=== PATIENT | male | born 1940 | race Caucasian/White ===

== ENCOUNTER → 2016-05-15 | Outpatient (CLI) | payer MEDICARE, OTHER ==
[2016-05-15 12:27] LABS: PROTHROMBIN TIME 45.9 SEC (11.4-15.4)
== END ==
LOC: HH 12:11
PROVIDERS: ATTEND Internal Medicine
DX: I49.01 Ventricular fibrillation (principal); Z51.81 Encounter for therapeutic drug level monitoring; Z79.01 Long term (current) use of anticoagulants
CPT/HCPCS: 85610

== ENCOUNTER → 2016-05-26 | Outpatient (CLI) | payer MEDICARE, OTHER ==
[2016-05-26 13:54] LABS: HEMATOCRIT 36.6 % (37.9-51.0); HEMOGLOBIN 11.4 g/dL (13.5-17.0); HGB HCT DIFFERENCE -2.4; MEAN CORPUSCULAR HEMOGLOBIN 28.5 pg (27.0-33.4); MEAN CORPUSCULAR HGB CONC 31.1 g/dL (32.0-36.0); MEAN CORPUSCULAR VOLUME 92 fl (80-97); RED BLOOD COUNT 3.99 10^6/uL (4.35-5.55); RED CELL DISTRIBUTION WIDTH 19.5 % (11.5-14.0); WHITE BLOOD COUNT 8.6 10^3/uL (4.0-10.5)
[2016-05-26 14:19] LABS: ANION GAP 10 (5-19); BLOOD UREA NITROGEN 38 mg/dL (7-20); CALCIUM 8.8 mg/dL (8.4-10.2); CARBON DIOXIDE 35 mmol/L (22-30); CHLORIDE 89 mmol/L (98-107); CREATININE RESULT 1.76 mg/dL (0.52-1.25); GLUCOSE 330 mg/dL (75-110); POTASSIUM 4.2 mmol/L (3.6-5.0); SODIUM 134.1 mmol/L (137-145)
== END ==
LOC: OD 13:25
PROVIDERS: ATTEND Internal Medicine Nephrology
DX: I12.9 Hypertensive chronic kidney disease with stage 1 through stage 4 chronic kidney disease, or unspecified chronic kidney disease (principal); N18.4 Chronic kidney disease, stage 4 (severe); I50.9 Heart failure, unspecified; E11.9 Type 2 diabetes mellitus without complications
CPT/HCPCS: 36415; 80048; 85027

== ENCOUNTER → 2016-06-20 | Outpatient (CLI) | payer MEDICARE, OTHER ==
[2016-06-20 08:40] LABS: PROTHROMBIN TIME 12.7 SEC (11.4-15.4)
== END ==
LOC: OD 07:42
PROVIDERS: ATTEND Student in an Organized Health Care Education/Training Program
DX: Z79.01 Long term (current) use of anticoagulants (principal)
CPT/HCPCS: 36415; 85610; 85730

== ENCOUNTER → 2016-07-04 | Outpatient (CLI) | payer MEDICARE, OTHER ==
[2016-07-04 09:07] LABS: ABSOLUTE BASOPHILS # (AUTO) 0.1 10^3/uL (0.0-0.2); ABSOLUTE EOSINOPHILS # (AUTO) 0.4 10^3/uL (0.0-0.6); ABSOLUTE LYMPHOCYTES (AUTO) 1.5 10^3/uL (0.5-4.7); ABSOLUTE MONOCYTES (AUTO) 0.9 10^3/uL (0.1-1.4); ABSOLUTE NEUT (AUTO) 7.8 10^3/uL (1.7-8.2); BASOPHILS % (AUTO) 0.6 % (0-2); HEMATOCRIT 32.4 % (37.9-51.0); HGB HCT DIFFERENCE -2.4; LYMPHOCYTES % (AUTO) 14.3 % (13-45); MEAN CORPUSCULAR HEMOGLOBIN 26.3 pg (27.0-33.4); MEAN CORPUSCULAR VOLUME 85 fl (80-97); MONOCYTES % (AUTO) 8.6 % (3-13); RED BLOOD COUNT 3.81 10^6/uL (4.35-5.55); RED CELL DISTRIBUTION WIDTH 20.2 % (11.5-14.0); SEGMENTED NEUTROPHILS % (AUTO) 72.5 % (42-78); WHITE BLOOD COUNT 10.8 10^3/uL (4.0-10.5)
[2016-07-04 09:19] LABS: PROTHROMBIN TIME 13.5 SEC (11.4-15.4)
[2016-07-04 09:20] LABS: PARTIAL THROMBOPLASTIN TIME 30.2 SEC (23.5-35.8)
[2016-07-04 09:28] LABS: ALANINE AMINOTRANSFERASE 29 U/L (21-72); ALBUMIN 3.6 g/dL (3.5-5.0); ALKALINE PHOSPHATASE 69 U/L (38-126); ANION GAP 12 (5-19); ASPARTATE AMINO TRANSFERASE 11 U/L (17-59); BILIRUBIN,TOTAL 0.4 mg/dL (0.2-1.3); BLOOD UREA NITROGEN 32 mg/dL (7-20); CALCIUM 9.8 mg/dL (8.4-10.2); CARBON DIOXIDE 32 mmol/L (22-30); CHLORIDE 94 mmol/L (98-107); CHOLESTEROL 152.56 mg/dL (0-200); CREATININE RESULT 2.05 mg/dL (0.52-1.25); Direct HDL 21 mg/dL (>40); GLUCOSE 142 mg/dL (75-110); POTASSIUM 4.9 mmol/L (3.6-5.0); SODIUM 138.2 mmol/L (137-145); TOTAL PROTEIN 6.4 g/dL (6.3-8.2); TRIGLYCERIDES 155 mg/dL (<150)
[2016-07-04 09:39] LABS: DIRECT LDL 116 mg/dL (<100)
== END ==
LOC: OD 08:35
PROVIDERS: ATTEND Internal Medicine
DX: E11.9 Type 2 diabetes mellitus without complications (principal); I12.9 Hypertensive chronic kidney disease with stage 1 through stage 4 chronic kidney disease, or unspecified chronic kidney disease; N18.9 Chronic kidney disease, unspecified; E78.5 Hyperlipidemia, unspecified; R53.83 Other fatigue; I25.10 Atherosclerotic heart disease of native coronary artery without angina pectoris; I42.9 Cardiomyopathy, unspecified
CPT/HCPCS: 36415; 80053; 80061; 83036; 84443; 85025; 85610; 85730

== ENCOUNTER → 2016-09-08 | Outpatient (CLI) | payer MEDICARE, OTHER ==
[2016-09-08 10:31] LABS: HEMATOCRIT 27.2 % (37.9-51.0); HEMOGLOBIN 8.3 g/dL (13.5-17.0); HGB HCT DIFFERENCE -2.3; MEAN CORPUSCULAR HEMOGLOBIN 24.4 pg (27.0-33.4); MEAN CORPUSCULAR HGB CONC 30.7 g/dL (32.0-36.0); MEAN CORPUSCULAR VOLUME 79 fl (80-97); RED BLOOD COUNT 3.42 10^6/uL (4.35-5.55); RED CELL DISTRIBUTION WIDTH 21.8 % (11.5-14.0); WHITE BLOOD COUNT 8.2 10^3/uL (4.0-10.5)
[2016-09-08 10:39] LABS: APPEARANCE,URINE CLEAR; BILIRUBIN,URINE NEGATIVE (NEGATIVE); GLUCOSE, URINE NEGATIVE (NEGATIVE); KETONES,URINE NEGATIVE (NEGATIVE); LEUKOCYTE ESTERASE,URINE NEGATIVE (NEGATIVE); NITRITE,URINE NEGATIVE (NEGATIVE); PROTEIN,URINE NEGATIVE (NEGATIVE); URINE SPECIFIC GRAVITY 1.005; UROBILINOGEN,URINE NEGATIVE mg/dL (<2.0)
[2016-09-08 11:07] LABS: ALANINE AMINOTRANSFERASE 21 U/L (21-72); ALBUMIN 3.5 g/dL (3.5-5.0); ALKALINE PHOSPHATASE 55 U/L (38-126); ANION GAP 12 (5-19); ASPARTATE AMINO TRANSFERASE 13 U/L (17-59); BILIRUBIN,DIRECT 0.1 mg/dL (0.0-0.4); BILIRUBIN,TOTAL 0.4 mg/dL (0.2-1.3); BLOOD UREA NITROGEN 33 mg/dL (7-20); CALCIUM 8.6 mg/dL (8.4-10.2); CARBON DIOXIDE 31 mmol/L (22-30); CHLORIDE 88 mmol/L (98-107); CREATININE RESULT 1.97 mg/dL (0.52-1.25); GLUCOSE 97 mg/dL (75-110); POTASSIUM 4.5 mmol/L (3.6-5.0); SODIUM 130.7 mmol/L (137-145); TOTAL PROTEIN 6.2 g/dL (6.3-8.2)
== END ==
LOC: OD 09:27
PROVIDERS: ATTEND Internal Medicine Nephrology
DX: I12.9 Hypertensive chronic kidney disease with stage 1 through stage 4 chronic kidney disease, or unspecified chronic kidney disease (principal); N18.4 Chronic kidney disease, stage 4 (severe); E11.9 Type 2 diabetes mellitus without complications; I50.9 Heart failure, unspecified
CPT/HCPCS: 36415; 80053; 81001; 85027

== ENCOUNTER → 2016-09-15 | Outpatient (CLI) | payer MEDICARE, OTHER ==
[2016-09-15 10:36] LABS: HEMATOCRIT 25.5 % (37.9-51.0); HGB HCT DIFFERENCE -1.5; MEAN CORPUSCULAR HEMOGLOBIN 24.3 pg (27.0-33.4); MEAN CORPUSCULAR HGB CONC 31.4 g/dL (32.0-36.0); MEAN CORPUSCULAR VOLUME 77 fl (80-97); RED BLOOD COUNT 3.31 10^6/uL (4.35-5.55); RED CELL DISTRIBUTION WIDTH 21.2 % (11.5-14.0); WHITE BLOOD COUNT 9.2 10^3/uL (4.0-10.5)
[2016-09-15 10:55] LABS: ANION GAP 10 (5-19); BLOOD UREA NITROGEN 44 mg/dL (7-20); CALCIUM 9.1 mg/dL (8.4-10.2); CARBON DIOXIDE 32 mmol/L (22-30); CHLORIDE 88 mmol/L (98-107); CREATININE RESULT 2.22 mg/dL (0.52-1.25); GLUCOSE 167 mg/dL (75-110); POTASSIUM 5.3 mmol/L (3.6-5.0); SODIUM 129.6 mmol/L (137-145)
== END ==
LOC: OD 09:48
PROVIDERS: ATTEND Internal Medicine Nephrology
DX: D64.9 Anemia, unspecified (principal); E87.1 Hypo-osmolality and hyponatremia
CPT/HCPCS: 36415; 80048; 85027

== ENCOUNTER → 2016-10-07 | Outpatient (CLI) | payer MEDICARE, OTHER ==
[2016-10-07 16:27] LABS: ALANINE AMINOTRANSFERASE 30 U/L (21-72); ALBUMIN 3.6 g/dL (3.5-5.0); ALKALINE PHOSPHATASE 68 U/L (38-126); ANION GAP 12 (5-19); ASPARTATE AMINO TRANSFERASE 13 U/L (17-59); BILIRUBIN,DIRECT 0.4 mg/dL (0.0-0.4); BILIRUBIN,TOTAL 0.6 mg/dL (0.2-1.3); BLOOD UREA NITROGEN 34 mg/dL (7-20); CARBON DIOXIDE 34 mmol/L (22-30); CHLORIDE 87 mmol/L (98-107); GLUCOSE 205 mg/dL (75-110); POTASSIUM 4.5 mmol/L (3.6-5.0); SODIUM 133.1 mmol/L (137-145); TOTAL PROTEIN 6.6 g/dL (6.3-8.2)
[2016-10-08 12:03] LABS: HEMATOCRIT 26.7 % (37.9-51.0); HGB HCT DIFFERENCE -3.3; MEAN CORPUSCULAR HEMOGLOBIN 21.7 pg (27.0-33.4); MEAN CORPUSCULAR HGB CONC 29.2 g/dL (32.0-36.0); MEAN CORPUSCULAR VOLUME 75 fl (80-97); RED BLOOD COUNT 3.59 10^6/uL (4.35-5.55); WHITE BLOOD COUNT 8.8 10^3/uL (4.0-10.5)
[2016-10-08 12:09] LABS: HEMOGLOBIN 7.8 g/dL (13.5-17.0)
[2016-10-08 12:10] LABS: APPEARANCE,URINE CLOUDY; BILIRUBIN,URINE NEGATIVE (NEGATIVE); GLUCOSE, URINE NEGATIVE (NEGATIVE); KETONES,URINE NEGATIVE (NEGATIVE); LEUKOCYTE ESTERASE,URINE LARGE (NEGATIVE); NITRITE,URINE NEGATIVE (NEGATIVE); PROTEIN,URINE 100 mg/dL (NEGATIVE); UROBILINOGEN,URINE NEGATIVE mg/dL (<2.0)
[2016-10-09 11:40] LABS: CREATININE URINE 66.5 mg/dL (Not Estab.)
[2016-10-09 13:22] LABS: MICROALBUMIN URINE 493.3 ug/mL (Not Estab.)
== END ==
LOC: OD 15:02
PROVIDERS: ATTEND Internal Medicine Nephrology
DX: E11.22 Type 2 diabetes mellitus with diabetic chronic kidney disease (principal); N18.4 Chronic kidney disease, stage 4 (severe); I50.9 Heart failure, unspecified; D64.9 Anemia, unspecified
CPT/HCPCS: 36415; 80053; 81001; 82043; 82570; 84443; 85027

== ENCOUNTER 2016-10-13 15:12 | Inpatient (IN) | payer MEDICARE, OTHER ==
[2016-10-13] MEDS ORDERED: GLUCAGON,HUMAN RECOMB 1 MG INJ IM PRN (17:14)
[2016-10-13] MEDS ORDERED: DEXTROSE 50%-WATER 25 GM/50 ML DISP.SYRIN IV PRN ×2 (17:14)
[2016-10-13] MEDS ORDERED: DEXTROSE 40% GEL 15 GM TUBE PO PRN ×2 (17:14)
[2016-10-13] MEDS ORDERED: ONDANSETRON HCL INJ/PF 4 MG/2 ML SDV IV PRN (17:19)
[2016-10-13] MEDS ORDERED: ACETAMINOPHEN 325 MG TABLET PO PRN (17:19)
[2016-10-13] MEDS ORDERED: VANCOMYCIN HCL 0 MG in DEXTROSE 5%-WATER 250 ML IV NR (17:30)
[2016-10-13] MEDS ORDERED: FUROSEMIDE INJ/PF 20 MG/2 ML SDV IV PRN (17:49)
[2016-10-13] MEDS ORDERED: NORMAL SALINE 250 ML IV PRN ×2 (17:49)
--- NOTE | 2016-10-13 17:55 | PDOC H&P ---
History of Present Illness Admission Date/PCP: 10/13/16 15:12 HANK LOCKETT MD Patient complains of: swelling, weakness, anemia History of Present Illness: LEOPOLDO SANCHEZ is a 76 year old male presents from dr back' office where he was being seen in followup of his CKD stage 4 and found to be more anemic than usual, worsening edema c/w anasarca, cough productive of green phlegm and worsening leg wounds from venous stasis and known mild to mod arterial disease. Hg found 7.8 down from 11 just a couple months ago without any clinical apparent bleeding at home or on exam by dr back. He is on coumadin for chronic afib. Scr at his baseline around 2.0. COPD is worse with increasing cough productive of green phlegm but no fever or chills, no increase in his home O2 at 3L/min or increased use of his home neb machine. Leg wounds are worsening and appearing spontaneously as his edema worsens and now tracks up to umbilicus. given this constellation of worsening conditions, we were asked to direct admit for further eval and management. Past Medical History Cardiac Medical History: Reports: Congestive Heart Failure, Coronary Artery Disease, Hypertension Pulmonary Medical History: Reports: Chronic Obstructive Pulmonary Disease (COPD) Neurological Medical History: Reports: Other - peripheral neuropathy Endocrine Medical History: Reports: Diabetes Mellitus Type 2 Renal/ Medical History: Reports: Chronic Kidney Disease GI Medical History: Reports: Gastroesophageal Reflux Disease Musculoskeltal Medical History: Reports: Arthritis Past Surgical History Past Surgical History: Reports: Appendectomy, Cardiac Catheterization Social History Information Source: Patient Smoking Status: Current Every Day Smoker Pipes Per Day: 8 Frequency of Alcohol Use: Rare Hx Recreational Drug Use: No Drugs: None Hx Prescription Drug Abuse: No - Advance Directive Resuscitation Status: Full Code Family History Family History: Reviewed & Not Pertinent Parental Family History Reviewed: Yes Children Family History Reviewed: Yes Sibling(s) Family History Reviewed.: Yes Medication/Allergy Home Medications: Aspirin [Aspirin 81 mg Chewable Tablet] 81 mg PO DAILY 04/05/15 Carvedilol [Coreg] 2 tab PO Q12 04/05/15 Folic Acid/Multivit-Min/Lutein [Centrum Silver Chewable Tablet] 1 each PO DAILY 04/05/15 Amiodarone HCl [Cordarone 200 mg Tablet] 200 mg PO Q12 #60 tablet 12/03/15 Atorvastatin Calcium [Lipitor] 40 mg PO QAM #30 tablet 04/12/15 Carvedilol [Coreg 6.25 mg Tablet] 12.5 mg PO Q12 #120 tablet 04/12/15 Doxazosin Mesylate [Cardura 2 mg Tablet] 2 mg PO QPM #30 tablet 04/12/15 Furosemide [Lasix 40 mg Tablet] 80 mg PO QAM #60 tablet 04/12/15 Gabapentin [Neurontin 300 mg Capsule] 300 mg PO QAM #30 capsule 04/12/15 Glimepiride [Amaryl 1 mg Tablet] 2 mg PO QAM #60 tablet 04/12/15 Insulin Glargine,Hum.rec.anlog [Lantus Insulin 100 Unit/mL] 10 unit SUBCUT Q12 # 10 insuln.pen 04/12/15 Linezolid [Zyvox 600 mg Tablet] 600 mg PO Q12 #20 tablet 04/12/15 Oxybutynin Chloride [Ditropan Xl] 10 mg PO QAM #30 tab.er.24 04/12/15 Spironolactone 25 mg PO QAM #30 tablet 04/12/15 Warfarin Sodium [Coumadin 5 mg Tablet] 5 mg PO QHS #30 tablet 04/12/15 Furosemide [Lasix 40 mg Tablet] 40 mg PO DAILY #30 tablet 04/16/15 Hydralazine HCl [Apresoline 50 mg Tablet] 50 mg PO Q8 #90 tablet 04/16/15 Albuterol Sulfate [Proair HFA Inhalation Aerosol 8.5 gm MDI] 01/22/16 Cholecalciferol (Vitamin D3) [D3-2000] 01/22/16 Diphenhydramine HCl [Sleep Aid] 01/22/16 Docusate Sodium [Stool Softener] 01/22/16 Ipratropium/Albuterol Sulfate [Iprat-Albut 0.5-3(2.5) mg/3 ml] 01/22/16 Losartan Potassium 100 mg PO 01/22/16 Oxycodone HCl [Oxycontin] 10 mg PO 01/22/16 Allergies/Adverse Reactions: PEPE Inhibitors [Pepe Inhibitors] Allergy (Severe, Verified 04/05/15 03:38) angioedema finasteride [Finasteride] Allergy (Severe, Verified 04/05/15 03:38) angioedema lisinopril [Lisinopril] Allergy (Severe, Verified 04/05/15 03:37) angioedema Review of Systems Constitutional: PRESENT: weight gain. ABSENT: chills, fever(s), headache(s), weight loss Eyes: ABSENT: visual disturbances Ears: ABSENT: hearing changes Cardiovascular: PRESENT: edema. ABSENT: chest pain, dyspnea on exertion, orthropnea, palpitations Respiratory: PRESENT: dyspnea. ABSENT: cough, hemoptysis Gastrointestinal: ABSENT: abdominal pain, constipation, diarrhea, hematemesis, hematochezia, nausea, vomiting Genitourinary: ABSENT: dysuria, hematuria Musculoskeletal: ABSENT: joint swelling Integumentary: ABSENT: rash, wounds Neurological: ABSENT: abnormal gait, abnormal speech, confusion, dizziness, focal weakness, syncope Psychiatric: ABSENT: anxiety, depression, homidical ideation, suicidal ideation Endocrine: ABSENT: cold intolerance, heat intolerance, polydipsia, polyuria Hematologic/Lymphatic: ABSENT: easy bleeding, easy bruising Physical Exam Vital Signs: Temp Pulse Resp BP Pulse Ox 98.6 F 67 20 140/63 H 93 10/13/16 16:01 10/13/16 16:01 10/13/16 16:01 10/13/16 16:01 10/13/16 16:01 Intake & Output 10/12/16 10/13/16 10/14/16 06:59 06:59 06:59 Weight 125.7 kg General appearance: PRESENT: no acute distress, obese, well-developed, well- nourished Head exam: PRESENT: atraumatic, normocephalic Eye exam: PRESENT: EOMI. ABSENT: conjunctival injection, scleral icterus Mouth exam: PRESENT: moist, neck supple Teeth exam: PRESENT: poor dentation Neck exam: PRESENT: full ROM. ABSENT: lymphadenopathy, tracheal deviation Respiratory exam: PRESENT: crackles - diffuse, rales - R>L. ABSENT: accessory muscle use, chest wall tenderness, unlabored, wheezes Cardiovascular exam: PRESENT: irregular rhythm. ABSENT: systolic murmur, tachycardia Pulses: PRESENT: normal radial pulses, normal dorsalis pedis pul GI/Abdominal exam: PRESENT: normal bowel sounds, soft. ABSENT: tenderness Rectal exam: PRESENT: deferred Gentrourinary exam: ABSENT: scrotal swelling Extremities exam: PRESENT: +2 edema. ABSENT: calf tenderness Musculoskeletal exam: PRESENT: full ROM. ABSENT: tenderness Neurological exam: PRESENT: alert, awake, oriented to person, oriented to place , oriented to time, oriented to situation Psychiatric exam: PRESENT: appropriate affect, normal mood Skin exam: PRESENT: rash - both legs and feet have multiple shallow wet ulcerations and excoriations, warm Assessment & Plan - Diagnosis (1) Anemia Qualifiers: Anemia type: unspecified type Qualified Code(s): D64.9 - Anemia, unspecified Is this a current diagnosis for this admission?: YesPlan: send anemia labs and transfuse 2 U PRBCs; R&B discussed with pt and his and they are agreeable to transfusion. f/u H/H, stool studies. no GI coverage until Thu. (2) Acute bronchitis Qualifiers: Bronchitis organism: unspecified organism Qualified Code(s): J20.9 - Acute bronchitis, unspecified Is this a current diagnosis for this admission?: YesPlan: abx and nebs, sputum and blood cultures; hold on steroids for now due to fluid overload and wounds on his legs (3) Acute exacerbation of CHF (congestive heart failure) Qualifiers: Congestive heart failure type: systolic Qualified Code(s): I50.23 - Acute on chronic systolic (congestive) heart failure Is this a current diagnosis for this admission?: YesPlan: last echo 2014 EF 30-35%; increase diuretics and monitor for response, monitor renal function (4) CAD (coronary artery disease) Qualifiers: Coronary Disease-Associated Artery/Lesion type: unspecified vessel or lesion type Associated angina: without angina Is this a current diagnosis for this admission?: YesPlan: stable continue home regimen once confirmed (5) COPD (chronic obstructive pulmonary disease) Qualifiers: COPD type: unspecified COPD Qualified Code(s): J44.9 - Chronic obstructive pulmonary disease, unspecified Is this a current diagnosis for this admission?: YesPlan: see above (6) Cellulitis Qualifiers: Site of cellulitis of extremity: lower extremity Laterality: unspecified laterality Is this a current diagnosis for this admission?: YesPlan: topical treatment and IV abx; no indication for surgical debridement at this time. (7) Chronic renal disease, stage IV Is this a current diagnosis for this admission?: YesPlan: at baseline but will likely worsen with attempts at diuresis; consult dr back for his assistance (8) Diabetes mellitus Qualifiers: Diabetes mellitus type: type 2 Diabetes mellitus complication status: with circulatory complication Diabetes mellitus complication detail: with other circulatory complications Diabetes mellitus terminologist insulin use: unspecified terminologist insulin use status Qualified Code(s): E11.59 - Type 2 diabetes mellitus with other circulatory complications Is this a current diagnosis for this admission?: YesPlan: cover with SSI until home regimen confirmed (9) Diabetic foot ulcer Qualifiers: Diabetes mellitus type: type 2 Laterality: unspecified laterality Qualified Code(s): E11.621 - Type 2 diabetes mellitus with foot ulcer; L97.509 - Non-pressure chronic ulcer of other part of unspecified foot with unspecified severity Is this a current diagnosis for this admission?: YesPlan: as above (10) Tobacco abuse Is this a current diagnosis for this admission?: YesPlan: nicotine replacement - Time Time Spent: Greater than 70 Minutes Medications reviewed and adjusted accordingly: Yes - Inpatient Certification Based on my medical assessment, after consideration of the patient's comorbidities, presenting symptoms, or acuity I expect that the services needed warrant INPATIENT care.: Yes I certify that my determination is in accordance with my understanding of Medicare's requirements for reasonable and necessary INPATIENT services [42 CFR 412.3e].: Yes Medical Necessity: Significant Comorbidiites Make Outpatient Treatment Too Risky , Need Close Monitoring Due to Risk of Patient Decompensation, Need For Continuous Telemetry Monitoring, Need for IV Antibiotics, Risk of Complication if Not Cared For in Hospital - Plan Summary Plan Summary: prognosis guarded, there are a lot of moving parts here, many of them working against each other, i.e. infection, heart failure, anasarca, renal failure, etc.
[2016-10-13] MEDS ORDERED: CEFTRIAXONE 1 GM/D5W RTU 1 GM/50 ML RTUPB IV ONE (18:00)
[2016-10-13] MEDS ORDERED: NICOTINE 21 MG/24 HR PATCH.TD24 TD ONE (18:00)
[2016-10-13] MEDS ORDERED: FUROSEMIDE INJ/PF 40 MG/4 ML SDV IV ONE (18:00)
--- NOTE | 2016-10-13 18:06 | RADIOLOGY REPORT (SQ) ---
EXAM DESCRIPTION: CHEST SINGLE VIEW COMPLETED DATE/TIME: 10/13/2016 5:56 pm REASON FOR STUDY: cough COMPARISON: March 2016 EXAM PARAMETERS: NUMBER OF VIEWS: One view. TECHNIQUE: Single frontal radiographic view of the chest acquired. RADIATION DOSE: NA LIMITATIONS: None. FINDINGS: LUNGS AND PLEURA: No opacities, masses or pneumothorax. No pleural effusion. Chronic appe aring changes are stable. MEDIASTINUM AND HILAR STRUCTURES: No masses. Contour normal. HEART AND VASCULAR STRUCTURES: The configuration of the heart and mediastinal structures is unchanged . BONES: No acute findings. HARDWARE: None in the chest. OTHER: No other significant finding. IMPRESSION: No significant interval change. No acute findings. Other findings as noted above TECHNICAL DOCUMENTATION: JOB ID: [id number]
[2016-10-13 18:08] LABS: HEMATOCRIT 27.1 % (37.9-51.0); HGB HCT DIFFERENCE -3.4; MEAN CORPUSCULAR HEMOGLOBIN 20.9 pg (27.0-33.4); MEAN CORPUSCULAR HGB CONC 29.1 g/dL (32.0-36.0); MEAN CORPUSCULAR VOLUME 72 fl (80-97); RED BLOOD COUNT 3.78 10^6/uL (4.35-5.55); RED CELL DISTRIBUTION WIDTH 22.2 % (11.5-14.0); WHITE BLOOD COUNT 8.5 10^3/uL (4.0-10.5)
[2016-10-13 18:12] LABS: HEMOGLOBIN 7.9 g/dL (13.5-17.0)
[2016-10-13 18:48] LABS: FERRITIN 9.17 ng/mL (17.9-464.0)
[2016-10-13 19:18] LABS: FOLATE > 20.00 ng/mL (>2.76)
[2016-10-13] MEDS: VANCOMYCIN HCL 2,000 MG in DEXTROSE 5%-WATER 500 ML IV SCH (20:01)
[2016-10-13 21:27] LABS: APPEARANCE,URINE CLEAR; BILIRUBIN,URINE NEGATIVE (NEGATIVE); GLUCOSE, URINE NEGATIVE (NEGATIVE); KETONES,URINE NEGATIVE (NEGATIVE); LEUKOCYTE ESTERASE,URINE TRACE (NEGATIVE); NITRITE,URINE NEGATIVE (NEGATIVE); PROTEIN,URINE 30 mg/dL (NEGATIVE); URINE SPECIFIC GRAVITY 1.006; UROBILINOGEN,URINE NEGATIVE mg/dL (<2.0)
[2016-10-13] MEDS: INSULIN LISPRO 100 UNIT/ML 3 ML VIAL SUBCUT PRN (22:06)
[2016-10-13] MEDS: FUROSEMIDE INJ/PF 40 MG/4 ML SDV IV SCH (22:08)
[2016-10-13] MEDS: WARFARIN SODIUM 5 MG TABLET PO SCH (22:08)
[2016-10-13] MEDS: FAMOTIDINE 20 MG TABLET PO SCH (22:08)
[2016-10-13] MEDS: AMIODARONE HCL 200 MG TABLET PO SCH (22:09)
[2016-10-14] MEDS: OXYCODONE-ACETAMINOPHEN 5-325 MG TABLET PO PRN ×3 (05:24→22:13)
[2016-10-14 09:24] LABS: ABSOLUTE BASOPHILS # (AUTO) 0.1 10^3/uL (0.0-0.2); ABSOLUTE EOSINOPHILS # (AUTO) 0.2 10^3/uL (0.0-0.6); ABSOLUTE LYMPHOCYTES (AUTO) 0.8 10^3/uL (0.5-4.7); ABSOLUTE MONOCYTES (AUTO) 0.9 10^3/uL (0.1-1.4); ABSOLUTE NEUT (AUTO) 9.9 10^3/uL (1.7-8.2); BASOPHILS % (AUTO) 0.5 % (0-2); EOSINOPHILS % (AUTO) 1.8 % (0-6); HEMATOCRIT 32.8 % (37.9-51.0); HEMOGLOBIN 9.5 g/dL (13.5-17.0); LYMPHOCYTES % (AUTO) 6.7 % (13-45); MEAN CORPUSCULAR HEMOGLOBIN 21.5 pg (27.0-33.4); MEAN CORPUSCULAR HGB CONC 28.8 g/dL (32.0-36.0); MEAN CORPUSCULAR VOLUME 75 fl (80-97); MONOCYTES % (AUTO) 7.4 % (3-13); RED CELL DISTRIBUTION WIDTH 22.3 % (11.5-14.0); SEGMENTED NEUTROPHILS % (AUTO) 83.6 % (42-78); WHITE BLOOD COUNT 11.8 10^3/uL (4.0-10.5)
[2016-10-14 09:41] LABS: ANION GAP 11 (5-19); BLOOD UREA NITROGEN 35 mg/dL (7-20); CALCIUM 9.2 mg/dL (8.4-10.2); CARBON DIOXIDE 36 mmol/L (22-30); CHLORIDE 90 mmol/L (98-107); CREATININE RESULT 1.81 mg/dL (0.52-1.25); GLUCOSE 147 mg/dL (75-110); POTASSIUM 4.6 mmol/L (3.6-5.0); PROTHROMBIN TIME 20.1 SEC (11.4-15.4); SODIUM 137.2 mmol/L (137-145)
[2016-10-14 09:43] LABS: HGB HCT DIFFERENCE -4.3
[2016-10-14] MEDS: AMIODARONE HCL 200 MG TABLET PO SCH ×2 (10:00→21:24)
[2016-10-14] MEDS: DOCUSATE SODIUM 100 MG CAPSULE PO SCH (11:12)
[2016-10-14] MEDS: NICOTINE 21 MG/24 HR PATCH.TD24 TD SCH (11:12)
[2016-10-14] MEDS: FAMOTIDINE 20 MG TABLET PO SCH ×2 (11:12→21:23)
[2016-10-14] MEDS: FUROSEMIDE INJ/PF 40 MG/4 ML SDV IV SCH (11:13)
[2016-10-14] MEDS: CEFTRIAXONE 1 GM/D5W RTU 1 GM/50 ML RTUPB IV SCH (11:13)
--- NOTE | 2016-10-14 16:25 | PDOC CONSULTATION ---
Consultation Consult Date: 10/14/16 Consult reason:: CKD stage IV with fluid overload and acute on chronic anemia History of Present Illness Admission Date/PCP: 10/13/16 17:15 HANK LOCKETT MD History of Present Illness: LEOPOLDO SANCHEZ is a 76 year old male with a history of complicated diabetes mellitus,Hypertension, CKD stage 4, Chronic congestive heart failure, History of severe noncompliance with diet and medications, chronic non healing diabetic ulcers, was found to be more anemic than usual, worsening edema c/w anasarca, cough productive of green phlegm and worsening leg wounds from venous stasis and known mild to mod arterial disease when seen in my office the other day. He was advised admission and discussed with Dr Sutherland Hospitalist who proceeded to admit him. He has been having recurrent falls at home over the last few weeks.On one of his recent falls, his could not lift him up and had to call EMS.He says his legs feels very weak and is just gives out under him. He gives no history of any orthostasis, focal deficits or seizures. His hemoglobin was 7.8 down from 11 just a couple months ago without any clinical apparent bleeding at home or on exam . He is on coumadin for chronic afib. Scr at his baseline around 2.0. COPD is worse with increasing cough productive of green phlegm but no fever or chills, no increase in his home O2 at 3L/min or increased use of his home neb machine. Leg wounds are worsening and appearing spontaneously as his edema worsens and now tracks up to umbilicus. He did have redness over the legs suggestive of early cellulitis. No history of any fever chills. His initial clinical presentation was that of acute on chronic congestive heart failure, acute on chronic bronchitis, acute on chronic anemia, early cellulitis on bilateral venous stasis with nonhealing diabetic ulcers and progressive generalized debilitation.This is required for institutionalized treatment and he has been admitted. On today's evaluation patient has already been given 2 pints of blood transfusion, started on IV antibiotics and diuretics and patient is feeling lots better. Past Medical History Cardiac Medical History: Reports: Coronary Artery Disease, Hypertension-primary Pulmonary Medical History: Reports: Chronic Obstructive Pulmonary Disease (COPD) Neurological Medical History: Reports: Other - peripheral neuropathy Endocrine Medical History: Reports: Diabetes Mellitus Type 2 Renal/ Medical History: Reports: Chronic Kidney Disease Stage III GI Medical History: Reports: Gastroesophageal Reflux Disease Musculoskeltal Medical History: Reports: Arthritis Hematology Medical History: Reports Anemia - Noncompliance with diet and medication Past Surgical History Past Surgical History: Reports: Appendectomy, Cardiac Catheterization Social History Smoking Status: Current Every Day Smoker Pipes Per Day: 8 Frequency of Alcohol Use: Rare Hx Recreational Drug Use: No Drugs: None Hx Prescription Drug Abuse: No - Advance Directive Resuscitation Status: Full Code Family History Parental Family History Reviewed: Yes - Negative for CKD Children Family History Reviewed: No Sibling(s) Family History Reviewed.: No Medication/Allergy Home Medications: Carvedilol [Coreg] 2 tab PO Q12 04/05/15 Furosemide [Lasix 40 mg Tablet] 80 mg PO QAM #60 tablet 04/12/15 Insulin Glargine,Hum.rec.anlog [Lantus Insulin 100 Unit/mL] 10 unit SUBCUT Q12 # 10 insuln.pen 04/12/15 Linezolid [Zyvox 600 mg Tablet] 600 mg PO Q12 #20 tablet 04/12/15 Amiodarone HCl [Cordarone 200 mg Tablet] 100 mg PO Q12 10/13/16 Aspirin [Aspirin 81 mg Chewable Tablet] 81 mg PO QPM 10/13/16 Budesonide/Formoterol Fumarate [Symbicort Hfa 160-4.5 Mcg Inhaler 6 gm] 2 puff IH Q12 10/13/16 Carvedilol [Coreg 12.5 mg Tablet] 12.5 mg PO Q12 10/13/16 Cholecalciferol (Vitamin D3) [Vitamin D3 2000 unit Tablet] 2,000 unit PO DAILY 10/13/16 Diphenhydramine HCl [Benadryl 50 mg Capsule] 50 mg PO QHS 10/13/16 Docusate Sodium [Colace 100 mg Capsule] 100 mg PO Q4 10/13/16 Furosemide [Lasix] 40 mg PO QPM 10/13/16 Furosemide [Lasix] 80 mg PO QAM 10/13/16 Gabapentin [Neurontin 400 mg Capsule] 800 mg PO Q12 10/13/16 Glimepiride [Amaryl 1 mg Tablet] 2 mg PO QAM 10/13/16 Hydromorphone HCl [Dilaudid 2 mg Tablet] 2 mg PO Q4 10/13/16 Ipratropium/Albuterol Sulfate [Duoneb 3 ml Ampul] 3 ml NEB RTQ4HP PRN 10/13/16 Multivitamin W/Iron, Minerals [Compete] 1 tab PO DAILY 10/13/16 Oxybutynin Chloride [Ditropan Xl] 10 mg PO DAILY 10/13/16 Spironolactone [Aldactone 25 mg Tablet] 25 mg PO DAILY 10/13/16 Warfarin Sodium [Coumadin 5 mg Tablet] 5.5 mg PO QHS 10/13/16 Hydromorphone HCl 2 mg PO QID PRN 10/14/16 Allergies/Adverse Reactions: PEPE Inhibitors [Pepe Inhibitors] Allergy (Severe, Verified 04/05/15 03:38) angioedema finasteride [Finasteride] Allergy (Severe, Verified 04/05/15 03:38) angioedema lisinopril [Lisinopril] Allergy (Severe, Verified 04/05/15 03:37) angioedema Review of Systems Review of Systems: Constitutional: [PRESENT: as per HPI. ABSENT: chills, fever(s), headache(s), weight gain, weight loss] Eyes: [ABSENT: visual disturbances] Ears: [ABSENT: hearing changes] Cardiovascular: [ABSENT: chest pain, , palpitations] Respiratory: [ABSENT: cough, hemoptysis] Gastrointestinal: [ABSENT: abdominal pain, constipation, diarrhea, hematemesis, hematochezia, nausea, vomiting] Genitourinary: [ABSENT: dysuria, hematuria] Musculoskeletal: [ABSENT: joint swelling] Integumentary: [ABSENT: rash, wounds] Neurological: [ABSENT: abnormal gait, abnormal speech, confusion, dizziness, focal weakness, syncope] Psychiatric: [ABSENT: anxiety, depression, homicidal ideation, suicidal ideation ] Endocrine: [ABSENT: cold intolerance, heat intolerance, polydipsia, polyuria] Hematologic/Lymphatic: [ABSENT: easy bleeding, easy bruising, lymphadenopathy] Physical Exam Vital Signs: Temp Pulse Resp BP Pulse Ox 98.4 F 83 18 150/42 H 96 10/14/16 12:01 10/14/16 13:51 10/14/16 13:51 10/14/16 12:01 10/14/16 12:01 Intake & Output 10/13/16 10/14/16 10/15/16 06:59 06:59 06:59 Intake Total 1609 118 Output Total 1925 Balance -316 118 Weight 126.3 kg General appearance: PRESENT: mild distress Eye exam: PRESENT: conjunctival injection, EOMI, PERRLA. ABSENT: conjunctiva pink, nystagmus, scleral icterus Ear exam: PRESENT: normal external ear exam Mouth exam: PRESENT: moist, neck supple Neck exam: ABSENT: lymphadenopathy, meningismus, tenderness, thyromegaly, tracheal deviation Respiratory exam: PRESENT: clear to auscultation zaki, crackles, rhonchi Cardiovascular exam: PRESENT: +S1, +S2, systolic murmur GI/Abdominal exam: PRESENT: normal bowel sounds, soft. ABSENT: diminished bowel sounds, distended, organomegaly, tenderness Extremities exam: PRESENT: +2 edema. ABSENT: calf tenderness Neurological exam: PRESENT: alert, awake, oriented to person, oriented to place , oriented to time Skin exam: PRESENT: erythema, mottled Results Laboratory Results: 10/14/16 08:48 10/14/16 08:48 10/13/16 10/13/16 10/13/16 17:47 17:47 17:47 WBC 8.5 RBC 3.78 L Hgb 7.9 L Hct 27.1 L MCV 72 L MCH 20.9 L MCHC 29.1 L RDW 22.2 H Plt Count 388 Seg Neutrophils % Lymphocytes % Monocytes % Eosinophils % Basophils % Absolute Neutrophils Absolute Lymphocytes Absolute Monocytes Absolute Eosinophils Absolute Basophils Retic Count (auto) 2.89 H Absolute Retic 0.110 Sodium Potassium Chloride Carbon Dioxide Anion Gap BUN Creatinine Est GFR ( Amer) Est GFR (Non-Af Amer) Glucose Calcium Magnesium Iron < 10.1 L TIBC 469 H % Saturation UNABLE TO CALCULATE Ferritin 9.17 L Vitamin B12 594.0 Folate > 20.00 Urine Color Urine Appearance Urine pH Ur Specific [place] Urine Protein Urine Glucose (UA) Urine Ketones Urine Blood Urine Nitrite Ur Leukocyte Esterase Urine WBC (Auto) Urine RBC (Auto) Blood Type Antibody Screen 10/13/16 10/13/16 10/14/16 18:40 20:45 08:48 WBC 11.8 H RBC 4.40 Hgb 9.5 L Hct 32.8 L MCV 75 L MCH 21.5 L MCHC 28.8 L RDW 22.3 H Plt Count 395 Seg Neutrophils % 83.6 H Lymphocytes % 6.7 L Monocytes % 7.4 Eosinophils % 1.8 Basophils % 0.5 Absolute Neutrophils 9.9 H Absolute Lymphocytes 0.8 Absolute Monocytes 0.9 Absolute Eosinophils 0.2 Absolute Basophils 0.1 Retic Count (auto) Absolute Retic Sodium Potassium Chloride Carbon Dioxide Anion Gap BUN Creatinine Est GFR ( Amer) Est GFR (Non-Af Amer) Glucose Calcium Magnesium Iron TIBC % Saturation Ferritin Vitamin B12 Folate Urine Color STRAW Urine Appearance CLEAR Urine pH 6.0 Ur Specific [place] 1.006 Urine Protein 30 H Urine Glucose (UA) NEGATIVE Urine Ketones NEGATIVE Urine Blood NEGATIVE Urine Nitrite NEGATIVE Ur Leukocyte Esterase TRACE H Urine WBC (Auto) 8 Urine RBC (Auto) 1 Blood Type O POSITIVE Antibody Screen NEGATIVE 10/14/16 08:48 WBC RBC Hgb Hct MCV MCH MCHC RDW Plt Count Seg Neutrophils % Lymphocytes % Monocytes % Eosinophils % Basophils % Absolute Neutrophils Absolute Lymphocytes Absolute Monocytes Absolute Eosinophils Absolute Basophils Retic Count (auto) Absolute Retic Sodium 137.2 Potassium 4.6 Chloride 90 L Carbon Dioxide 36 H Anion Gap 11 BUN 35 H Creatinine 1.81 H Est GFR ( Amer) 44 L Est GFR (Non-Af Amer) 37 L Glucose 147 H Calcium 9.2 Magnesium 2.0 Iron TIBC % Saturation Ferritin Vitamin B12 Folate Urine Color Urine Appearance Urine pH Ur Specific [place] Urine Protein Urine Glucose (UA) Urine Ketones Urine Blood Urine Nitrite Ur Leukocyte Esterase Urine WBC (Auto) Urine RBC (Auto) Blood Type Antibody Screen 10/13/16 17:47 NT-Pro-B Natriuret Pep 8600 H Impressions: Chest X-Ray 10/13/16 17:20 IMPRESSION: No significant interval change. No acute findings. Other findings as noted above Assessment & Plan - Diagnosis (1) Acute bronchitis Qualifiers: Bronchitis organism: unspecified organism Qualified Code(s): J20.9 - Acute bronchitis, unspecified Is this a current diagnosis for this admission?: YesPlan: As per hospitalist (2) Anemia Qualifiers: Anemia type: unspecified type Qualified Code(s): D64.9 - Anemia, unspecified Is this a current diagnosis for this admission?: YesPlan: Acute on chronic. Has iron deficiency indicis. Question GI eval as an outpatient.Later consider IV iron as an outpatient. Patient currently is posttransfusion feeling better with improved hemoglobin values. (3) Acute exacerbation of CHF (congestive heart failure) Qualifiers: Congestive heart failure type: systolic Qualified Code(s): I50.23 - Acute on chronic systolic (congestive) heart failure Is this a current diagnosis for this admission?: YesPlan: Is responding well to IV diuresis. His last echo was showing an LV ejection fraction of 30-35%. (4) Chronic renal disease, stage IV Is this a current diagnosis for this admission?: YesPlan: Stable but for fluid overload. See how he responds to IV diuretics. (5) Diabetes mellitus Qualifiers: Diabetes mellitus type: type 2 Diabetes mellitus complication status: with circulatory complication Diabetes mellitus complication detail: with other circulatory complications Diabetes mellitus usp insulin use: unspecified usp insulin use status Qualified Code(s): E11.59 - Type 2 diabetes mellitus with other circulatory complications Is this a current diagnosis for this admission?: Yes (6) Diabetic foot ulcer Qualifiers: Diabetes mellitus type: type 2 Laterality: unspecified laterality Qualified Code(s): E11.621 - Type 2 diabetes mellitus with foot ulcer; L97.509 - Non-pressure chronic ulcer of other part of unspecified foot with unspecified severity Is this a current diagnosis for this admission?: YesPlan: Chronic and nonhealing diabetic foot ulcers. He has obviously got peripheral vascular disease. He needs surgical follow-up for prognostication and management.
--- NOTE | 2016-10-14 17:11 | PDOC PROGRESS REPORT ---
Subjective Progress Note for:: 10/14/16 Subjective:: This is a follow-up visit for acute on chronic systolic heart failure. The patient denies any chest pain but does not think that her breathing is any better. He has had episodes of confusion and is constantly getting in and out of bed. No acute events overnight Physical Exam Vital Signs: Temp Pulse Resp BP Pulse Ox 98.4 F 83 18 150/42 H 96 10/14/16 12:01 10/14/16 13:51 10/14/16 13:51 10/14/16 12:01 10/14/16 12:01 Intake & Output 10/13/16 10/14/16 10/15/16 06:59 06:59 06:59 Intake Total 1609 118 Output Total 1925 Balance -316 118 Weight 126.3 kg Physical exam: General: This is a tall well-developed and nourished appearing white male resting on his potty chair currently in no acute distress Heart: Regular rate and rhythm no obvious murmurs rubs or gallops Lungs: diminished At the bases bilaterally with equal rise and fall of the chest Abdomen: Distended the patient has anasarca Extremities: No clubbing or cyanosis. Anasarca is present. Neuro: Awake and alert. He is not oriented. Conversation makes sense, as able to answer basic questions. Results Laboratory Results: 10/14/16 08:48 10/14/16 08:48 10/13/16 10/13/16 10/13/16 17:47 17:47 17:47 WBC 8.5 RBC 3.78 L Hgb 7.9 L Hct 27.1 L MCV 72 L MCH 20.9 L MCHC 29.1 L RDW 22.2 H Plt Count 388 Seg Neutrophils % Lymphocytes % Monocytes % Eosinophils % Basophils % Absolute Neutrophils Absolute Lymphocytes Absolute Monocytes Absolute Eosinophils Absolute Basophils Retic Count (auto) 2.89 H Absolute Retic 0.110 Sodium Potassium Chloride Carbon Dioxide Anion Gap BUN Creatinine Est GFR ( Amer) Est GFR (Non-Af Amer) Glucose Calcium Magnesium Iron < 10.1 L TIBC 469 H % Saturation UNABLE TO CALCULATE Ferritin 9.17 L Vitamin B12 594.0 Folate > 20.00 Urine Color Urine Appearance Urine pH Ur Specific [place] Urine Protein Urine Glucose (UA) Urine Ketones Urine Blood Urine Nitrite Ur Leukocyte Esterase Urine WBC (Auto) Urine RBC (Auto) Blood Type Antibody Screen 10/13/16 10/13/16 10/14/16 18:40 20:45 08:48 WBC 11.8 H RBC 4.40 Hgb 9.5 L Hct 32.8 L MCV 75 L MCH 21.5 L MCHC 28.8 L RDW 22.3 H Plt Count 395 Seg Neutrophils % 83.6 H Lymphocytes % 6.7 L Monocytes % 7.4 Eosinophils % 1.8 Basophils % 0.5 Absolute Neutrophils 9.9 H Absolute Lymphocytes 0.8 Absolute Monocytes 0.9 Absolute Eosinophils 0.2 Absolute Basophils 0.1 Retic Count (auto) Absolute Retic Sodium Potassium Chloride Carbon Dioxide Anion Gap BUN Creatinine Est GFR ( Amer) Est GFR (Non-Af Amer) Glucose Calcium Magnesium Iron TIBC % Saturation Ferritin Vitamin B12 Folate Urine Color STRAW Urine Appearance CLEAR Urine pH 6.0 Ur Specific [place] 1.006 Urine Protein 30 H Urine Glucose (UA) NEGATIVE Urine Ketones NEGATIVE Urine Blood NEGATIVE Urine Nitrite NEGATIVE Ur Leukocyte Esterase TRACE H Urine WBC (Auto) 8 Urine RBC (Auto) 1 Blood Type O POSITIVE Antibody Screen NEGATIVE 10/14/16 08:48 WBC RBC Hgb Hct MCV MCH MCHC RDW Plt Count Seg Neutrophils % Lymphocytes % Monocytes % Eosinophils % Basophils % Absolute Neutrophils Absolute Lymphocytes Absolute Monocytes Absolute Eosinophils Absolute Basophils Retic Count (auto) Absolute Retic Sodium 137.2 Potassium 4.6 Chloride 90 L Carbon Dioxide 36 H Anion Gap 11 BUN 35 H Creatinine 1.81 H Est GFR ( Amer) 44 L Est GFR (Non-Af Amer) 37 L Glucose 147 H Calcium 9.2 Magnesium 2.0 Iron TIBC % Saturation Ferritin Vitamin B12 Folate Urine Color Urine Appearance Urine pH Ur Specific [place] Urine Protein Urine Glucose (UA) Urine Ketones Urine Blood Urine Nitrite Ur Leukocyte Esterase Urine WBC (Auto) Urine RBC (Auto) Blood Type Antibody Screen 10/13/16 17:47 NT-Pro-B Natriuret Pep 8600 H Impressions: Chest X-Ray 10/13/16 17:20 IMPRESSION: No significant interval change. No acute findings. Other findings as noted above Assessment & Plan - Diagnosis (1) Acute systolic (congestive) heart failure Plan: Continue diuresis. Patient does not have a alvarenga and is incontinent. Therefore , I do not have accurate i/o's. Will continue to follow clinically, since he has been urinating quite a bit. However, if he does not have much more improvement, then I think placement of a alvarenga and lasix gtt will be necessary. (3) Cellulitis Qualifiers: Site of cellulitis of extremity: lower extremity Laterality: unspecified laterality Is this a current diagnosis for this admission?: YesPlan: Continue current antibiotics. (4) Chronic renal disease, stage IV Is this a current diagnosis for this admission?: Yes (5) Diabetes mellitus Qualifiers: Diabetes mellitus type: type 2 Diabetes mellitus complication status: with circulatory complication Diabetes mellitus complication detail: with other circulatory complications Diabetes mellitus care home insulin use: unspecified intermediate frame tender insulin use status Qualified Code(s): E11.59 - Type 2 diabetes mellitus with other circulatory complications Is this a current diagnosis for this admission?: YesPlan: Continue current meds - Time Time Spent with patient: 25-34 minutes - Inpatient Certification Medical Necessity: Significant Comorbidiites Make Outpatient Treatment Too Risky
[2016-10-14] MEDS: LORAZEPAM INJ 2 MG/1 ML VIAL IV PRN (17:36)
[2016-10-14] MEDS ORDERED: LORAZEPAM INJ 2 MG/1 ML VIAL ONE (17:36)
[2016-10-14] MEDS: VANCOMYCIN HCL 2,000 MG in DEXTROSE 5%-WATER 500 ML IV SCH (19:51)
[2016-10-14] MEDS ORDERED: HALOPERIDOL LACTATE INJ 5 MG/1 ML VIAL ONE (20:37)
[2016-10-14] MEDS: IPRATROPIUM/ALBUTEROL 0.5-2.5 MG/3 ML AMPUL NEB PRN (20:38)
[2016-10-14] MEDS: WARFARIN SODIUM 5 MG TABLET PO SCH (21:24)
[2016-10-14] MEDS: NORMAL SALINE 250 ML with FUROSEMIDE 250 MG IV PRN ×2 (21:56)
[2016-10-14] MEDS: INSULIN LISPRO 100 UNIT/ML 3 ML VIAL SUBCUT PRN (23:14)
[2016-10-15 01:00] LABS: ARTERIAL BLOOD BASE EXCESS 5.1 mmol/L; ARTERIAL BLOOD O2 SATURATION 94.9 % (94-98)
[2016-10-15 04:57] LABS: HEMATOCRIT 32.5 % (37.9-51.0); HEMOGLOBIN 9.3 g/dL (13.5-17.0); MEAN CORPUSCULAR HEMOGLOBIN 21.2 pg (27.0-33.4); MEAN CORPUSCULAR HGB CONC 28.7 g/dL (32.0-36.0); MEAN CORPUSCULAR VOLUME 74 fl (80-97); RED BLOOD COUNT 4.39 10^6/uL (4.35-5.55); RED CELL DISTRIBUTION WIDTH 22.5 % (11.5-14.0); WHITE BLOOD COUNT 14.8 10^3/uL (4.0-10.5)
[2016-10-15 05:08] LABS: PROTHROMBIN TIME 21.5 SEC (11.4-15.4)
[2016-10-15 05:09] LABS: ANION GAP 11 (5-19); BLOOD UREA NITROGEN 33 mg/dL (7-20); CALCIUM 8.7 mg/dL (8.4-10.2); CARBON DIOXIDE 35 mmol/L (22-30); CHLORIDE 88 mmol/L (98-107); CREATININE RESULT 1.94 mg/dL (0.52-1.25); GLUCOSE 241 mg/dL (75-110); SODIUM 134.4 mmol/L (137-145)
[2016-10-15 06:16] LABS: HGB HCT DIFFERENCE -4.6
[2016-10-15 06:18] LABS: BAND NEUTROPHILS % (MANUAL) 1 % (3-5); BASOPHILS % (MANUAL) 0 % (0-2); EOSINOPHILS % (MANUAL) 0 % (0-6); LYMPHOCYTES % (MANUAL) 4 % (13-45); TOTAL CELLS COUNTED 100
[2016-10-15 06:20] LABS: ANISOCYTOSIS 3+; BURR CELLS SLIGHT; HYPOCHROMASIA 1+; MICROCYTOSIS 1+; OVALOCYTES 1+; POIKILOCYTOSIS 1+; POLYCHROMASIA SLIGHT; TOXIC GRANULATION SLIGHT
[2016-10-15] MEDS: INSULIN LISPRO 100 UNIT/ML 3 ML VIAL SUBCUT PRN ×3 (09:26→22:08)
[2016-10-15] MEDS: FAMOTIDINE 20 MG TABLET PO SCH ×2 (10:18→21:41)
[2016-10-15] MEDS: DOCUSATE SODIUM 100 MG CAPSULE PO SCH (10:18)
[2016-10-15] MEDS: NICOTINE 21 MG/24 HR PATCH.TD24 TD SCH (10:19)
[2016-10-15] MEDS: CEFTRIAXONE 1 GM/D5W RTU 1 GM/50 ML RTUPB IV SCH (10:19)
[2016-10-15] MEDS: AMIODARONE HCL 200 MG TABLET PO SCH ×2 (10:19→21:42)
--- NOTE | 2016-10-15 12:09 | PDOC PROGRESS REPORT ---
Subjective Progress Note for:: 10/15/16 Subjective:: This is a follow-up visit for acute on chronic systolic heart failure. Overnight, the patient had difficulty breathing. Apparently the patient was quite agitated received a dose of Haldol. After Receiving the medication he began to have respiratory distress. ABG was done and showed a respiratory acidosis. Patient was placed on bilevel Pap. At the bedside the patient was still on bilevel Pap and resting comfortably. When awakened he was quite agitated. Earlier this morning he refused vital signs. He was examined in the presence of the nurse. Prior to my leaving the floor I was informed that he was taken off of BiPAP and saturating well. He requested to eat. Physical Exam Vital Signs: Temp Pulse Resp BP Pulse Ox 98.1 F 73 20 154/75 H 91 L 10/15/16 04:41 10/15/16 07:00 10/15/16 04:41 10/15/16 04:41 10/15/16 04:41 Intake & Output 10/14/16 10/15/16 10/16/16 06:59 06:59 06:59 Intake Total 1609 1103 Output Total 1925 1075 Balance -316 28 Weight 126.3 kg 124.3 kg Physical exam: General: This is a tall well-developed and nourished appearing white male resting in bed on bilevel Pap currently in no acute distress Heart: Regular rate and rhythm. No rubs or gallops. 2/6 systolic ejection murmur. Lungs: Clear from the anterior perspective with equal rise and fall of the chest. He remains on bilevel Pap Abdomen: Distended the patient has anasarca Extremities: No clubbing or cyanosis. Anasarca is present. Skin: The patient has superficial wounds on the right felix. Appear clean dry and intact. There are also some superficial sores on the joints of the right toes. Patient has dry exfoliating skin bilaterally. On the left foot he has ulceration under fourth digit. Neuro: Sleeping. Quite agitated when awakened. He is not oriented. Results Laboratory Results: 10/15/16 04:14 10/15/16 04:14 10/13/16 10/14/16 10/14/16 17:47 08:48 08:48 WBC 11.8 H RBC 4.40 Hgb 9.5 L Hct 32.8 L MCV 75 L MCH 21.5 L MCHC 28.8 L RDW 22.3 H Plt Count 395 Seg Neutrophils % 83.6 H Lymphocytes % 6.7 L Monocytes % 7.4 Eosinophils % 1.8 Basophils % 0.5 Absolute Neutrophils 9.9 H Absolute Lymphocytes 0.8 Absolute Monocytes 0.9 Absolute Eosinophils 0.2 Absolute Basophils 0.1 Carbonic Acid HCO3/H2CO3 Ratio ABG pH ABG pCO2 ABG pO2 ABG HCO3 ABG O2 Saturation ABG Base Excess FiO2 Sodium 137.2 Potassium 4.6 Chloride 90 L Carbon Dioxide 36 H Anion Gap 11 BUN 35 H Creatinine 1.81 H Est GFR ( Amer) 44 L Est GFR (Non-Af Amer) 37 L Glucose 147 H Calcium 9.2 Magnesium 2.0 Transferrin 378 H 10/15/16 10/15/16 10/15/16 00:45 04:14 04:14 WBC 14.8 H RBC 4.39 Hgb 9.3 L Hct 32.5 L MCV 74 L MCH 21.2 L MCHC 28.7 L RDW 22.5 H Plt Count 335 Seg Neutrophils % Not Reportable Lymphocytes % Not Reportable Monocytes % Not Reportable Eosinophils % Not Reportable Basophils % Not Reportable Absolute Neutrophils Not Reportable Absolute Lymphocytes Not Reportable Absolute Monocytes Not Reportable Absolute Eosinophils Not Reportable Absolute Basophils Not Reportable Carbonic Acid 2.91 H HCO3/H2CO3 Ratio 12:1 ABG pH 7.19 L* ABG pCO2 96.7 H* ABG pO2 95.0 ABG HCO3 35.8 H ABG O2 Saturation 94.9 ABG Base Excess 5.1 FiO2 4 L Sodium 134.4 L Potassium 4.0 Chloride 88 L Carbon Dioxide 35 H Anion Gap 11 BUN 33 H Creatinine 1.94 H Est GFR ( Amer) 41 L Est GFR (Non-Af Amer) 34 L Glucose 241 H Calcium 8.7 Magnesium 2.0 Transferrin 10/13/16 17:47 NT-Pro-B Natriuret Pep 8600 H Impressions: Chest X-Ray 10/13/16 17:20 IMPRESSION: No significant interval change. No acute findings. Other findings as noted above Assessment & Plan - Diagnosis (1) Acute respiratory failure with hypoxia and hypercapnia Plan: Etiology is multifactorial. He has underlying heart failure, COPD with likely exacerbation and CO2 retention, acute bronchitis. Check chest x-ray. Continue bilevel Pap as necessary. No wheezing was evident on exam. I will hold off on steroids at this time. Repeat ABG as needed. (2) Sepsis Qualifiers: Sepsis type: sepsis due to unspecified organism Qualified Code(s): A41.9 - Sepsis, unspecified organism Plan: Sirs/sepsis: Elevated white blood cell count. It is climbing from yesterday. Fleming cultures are so far negative. Repeat chest x-ray. Currently on vancomycin and cefepime. With sudden onset in respiratory distress, a question if the patient had any sort of aspiration event. There have been no reports of difficulty swallowing. Will check a bedside swallowing screen with breakfast this morning. Await chest x-ray. Hold off on broadening out the patient's antibiotics for now. (3) Acute systolic (congestive) heart failure Plan: Continue diuresis. Continue Neri catheter. Cardiology has been consulted. Echocardiogram has been completed await official report. (4) Atrial fibrillation with rapid ventricular response Plan: Continue amiodarone. Patient is rate controlled. Continue warfarin (5) Cellulitis Qualifiers: Site of cellulitis of extremity: lower extremity Laterality: unspecified laterality Is this a current diagnosis for this admission?: YesPlan: Improved no erythema is present (6) Chronic renal disease, stage IV Is this a current diagnosis for this admission?: Yes (7) Diabetes mellitus Qualifiers: Diabetes mellitus type: type 2 Diabetes mellitus complication status: with circulatory complication Diabetes mellitus complication detail: with other circulatory complications Diabetes mellitus intermediate insulin use: unspecified middle or intermediate school principal insulin use status Qualified Code(s): E11.59 - Type 2 diabetes mellitus with other circulatory complications Is this a current diagnosis for this admission?: YesPlan: Continue current meds. Sugars are 253. Continue sliding scale insulin. The patient is asking to eat prior to my leaving the floor so I will not be changing any of his medications at this time. (8) Diabetic foot ulcer Qualifiers: Diabetes mellitus type: type 2 Laterality: unspecified laterality Is this a current diagnosis for this admission?: YesPlan: Continue local wound care. His wounds appear quite clean. I do not suspect that they are the cause of his current elevation in white count. The wounds are quite shallow and do not look erythematous. There is no purulence. - Time Time Spent with patient: 35 or more minutes - Inpatient Certification Medical Necessity: Need Close Monitoring Due to Risk of Patient Decompensation
--- NOTE | 2016-10-15 16:26 | RADIOLOGY REPORT (SQ) ---
EXAM DESCRIPTION: CHEST SINGLE VIEW COMPLETED DATE/TIME: 10/15/2016 4:17 pm REASON FOR STUDY: Acute respiratory failure COMPARISON: 10/13/2016 EXAM PARAMETERS: NUMBER OF VIEWS: One view. TECHNIQUE: Single frontal radiographic view of the chest acquired. RADIATION DOSE: NA LIMITATIONS: None. FINDINGS: LUNGS AND PLEURA: No opacities, masses or pneumothorax. No pleural effusion. MEDIASTINUM AND HILAR STRUCTURES: No masses. Contour normal. HEART AND VASCULAR STRUCTURES: Stable in appearance. No failure. BONES: No acute findings. HARDWARE: None in the chest. OTHER: No other significant finding. IMPRESSION: No interval change in the chest. TECHNICAL DOCUMENTATION: JOB ID: [id number]
--- NOTE | 2016-10-15 16:27 | PDOC PROGRESS REPORT ---
Subjective Progress Note for:: 10/15/16 Subjective:: Seen in the hospital today. He was quite agitated last night and had some worsening of his breathing as well. He was initially on BiPAP which she forcefully removed and currently is on nonrebreather. Patient is confused and agitated on awakening. Denies chest pains. Patient currently on vancomycin and cefepime. Physical Exam Vital Signs: Temp Pulse Resp BP Pulse Ox 98.6 F 86 17 140/72 H 95 10/15/16 12:35 10/15/16 12:35 10/15/16 14:00 10/15/16 12:35 10/15/16 14:00 Intake & Output 10/14/16 10/15/16 10/16/16 06:59 06:59 06:59 Intake Total 1609 1103 Output Total 1925 1075 Balance -316 28 Weight 126.3 kg 124.3 kg General appearance: PRESENT: no acute distress Respiratory exam: PRESENT: clear to auscultation zaki, crackles. ABSENT: rhonchi Cardiovascular exam: PRESENT: +S1, +S2, systolic murmur GI/Abdominal exam: PRESENT: normal bowel sounds, soft. ABSENT: diminished bowel sounds, distended, organomegaly, tenderness Results Laboratory Results: 10/15/16 04:14 10/15/16 04:14 10/13/16 10/15/16 10/15/16 17:47 00:45 04:14 WBC 14.8 H RBC 4.39 Hgb 9.3 L Hct 32.5 L MCV 74 L MCH 21.2 L MCHC 28.7 L RDW 22.5 H Plt Count 335 Seg Neutrophils % Not Reportable Lymphocytes % Not Reportable Monocytes % Not Reportable Eosinophils % Not Reportable Basophils % Not Reportable Absolute Neutrophils Not Reportable Absolute Lymphocytes Not Reportable Absolute Monocytes Not Reportable Absolute Eosinophils Not Reportable Absolute Basophils Not Reportable Carbonic Acid 2.91 H HCO3/H2CO3 Ratio 12:1 ABG pH 7.19 L* ABG pCO2 96.7 H* ABG pO2 95.0 ABG HCO3 35.8 H ABG O2 Saturation 94.9 ABG Base Excess 5.1 FiO2 4 L Sodium Potassium Chloride Carbon Dioxide Anion Gap BUN Creatinine Est GFR ( Amer) Est GFR (Non-Af Amer) Glucose Calcium Magnesium Transferrin 378 H 10/15/16 04:14 WBC RBC Hgb Hct MCV MCH MCHC RDW Plt Count Seg Neutrophils % Lymphocytes % Monocytes % Eosinophils % Basophils % Absolute Neutrophils Absolute Lymphocytes Absolute Monocytes Absolute Eosinophils Absolute Basophils Carbonic Acid HCO3/H2CO3 Ratio ABG pH ABG pCO2 ABG pO2 ABG HCO3 ABG O2 Saturation ABG Base Excess FiO2 Sodium 134.4 L Potassium 4.0 Chloride 88 L Carbon Dioxide 35 H Anion Gap 11 BUN 33 H Creatinine 1.94 H Est GFR ( Amer) 41 L Est GFR (Non-Af Amer) 34 L Glucose 241 H Calcium 8.7 Magnesium 2.0 Transferrin 10/13/16 20:45 Clean Catch Midstream Urine Culture - Final NO GROWTH 2 DAYS 10/13/16 17:47 NT-Pro-B Natriuret Pep 8600 H Impressions: Chest X-Ray 10/13/16 17:20 IMPRESSION: No significant interval change. No acute findings. Other findings as noted above Assessment & Plan - Diagnosis (1) Acute bronchitis Qualifiers: Bronchitis organism: unspecified organism Qualified Code(s): J20.9 - Acute bronchitis, unspecified Is this a current diagnosis for this admission?: YesPlan: As per hospitalist (2) Anemia Qualifiers: Anemia type: unspecified type Qualified Code(s): D64.9 - Anemia, unspecified Is this a current diagnosis for this admission?: YesPlan: Stable status post transfusion. (3) Acute exacerbation of CHF (congestive heart failure) Qualifiers: Congestive heart failure type: systolic Qualified Code(s): I50.23 - Acute on chronic systolic (congestive) heart failure Is this a current diagnosis for this admission?: YesPlan: Currently on IV diuretics. He has had an echo ordered for his recent decompensation and awaiting results. Otherwise continue on current medications. His last echo was showing an LV ejection fraction of 30-35%. (4) Chronic renal disease, stage IV Is this a current diagnosis for this admission?: YesPlan: Nonoliguric. Stable renal numbers. No indications for renal replacements. (5) Diabetes mellitus Qualifiers: Diabetes mellitus type: type 2 Diabetes mellitus complication status: with circulatory complication Diabetes mellitus complication detail: with other circulatory complications Diabetes mellitus watermelon inspector insulin use: unspecified halfway insulin use status Qualified Code(s): E11.59 - Type 2 diabetes mellitus with other circulatory complications Is this a current diagnosis for this admission?: Yes (6) Diabetic foot ulcer Qualifiers: Diabetes mellitus type: type 2 Laterality: unspecified laterality Is this a current diagnosis for this admission?: YesPlan: On vancomycin/cefepime. Cultures negative so far. However he has worsening white count and left shift. (7) Acute respiratory failure with hypoxia and hypercapnia Plan: Currently on nonrebreather. Further management as per hospitalist. (8) Encephalopathy Plan: Multifactorial. They include congestive heart failure,COPD/acute bronchitis and sepsis in the setting of early dementia.
[2016-10-15] MEDS: LORAZEPAM INJ 2 MG/1 ML VIAL IV PRN (17:05)
[2016-10-15 18:36] LABS: ARTERIAL BLOOD BASE EXCESS 9.8 mmol/L; ARTERIAL BLOOD O2 SATURATION 95.9 % (94-98)
--- NOTE | 2016-10-15 19:27 | XCELERA REPORT ---
[address] [address] Transthoracic Echocardiogram Report Name: LEOPOLDO SANCHEZ Age: 76 yrs Gender: Male : 1940 Patient Status: Inpatient Patient Location: [id number]\S\318\[id number]\B Study Date: 10/15/2016 02:23 PM Height: 77 in Weight: 278 lb BSA: 2.6 m2 Procedure: A complete two-dimensional transthoracic echocardiogram was performed (2D, M-mode, spectral and color flow Doppler). The study was technically difficult with many images being suboptimal in quality. Reason For Study: chf Ordering Physician: MANAN LOWE Performed By: Shree Santamaria Interpretation Summary LV EF is 35-40% The study was technically difficult with many images being suboptimal in quality. Left ventricular systolic function is moderately reduced. Doppler measurements suggest pseudonormalized left ventricular relaxation, which is associated with grade II/IV or mild to moderate diastolic dysfunction There is mild concentric left ventricular hypertrophy. The left ventricle is moderately dilated. Regional wall motion abnormalities cannot be excluded due to limited visualization. The right ventricular systolic function is normal. The left atrium is moderately dilated. The right atrium is normal in size There is a mild to moderate amount of mitral regurgitation There is no mitral valve stenosis. There is a trace to mild amount of aortic regurgitation There is no aortic valve stenosis There is a trace to mild amount of tricuspid regurgitation There is moderate pulmonary hypertension by echo Right ventricular systolic pressure is estimated to be elevated at 50- 60mmHg. The inferior vena cava appeared normal and decreased < 50% with respiration (RAP 10-15 mmHg) Minimal pericardial effusion. MMode/2D Measurements \T\ Calculations RVDd: 3.3 cm LVIDd: 7.5 cm FS: 16.8 % Ao root diam: 3.8 cm IVSd: 1.2 cm LVIDs: 6.3 cm EDV(Teich): 300.2 ml LVPWd: 1.2 cm ESV(Teich): 198.2 ml Ao root area: 11.5 cm2 EF(Teich): 34.0 % LA dimension: 4.9 cm Doppler Measurements \T\ Calculations MV E max jeanna: MV P1/2t max jeanna: Ao V2 max: LV V1 max P.9 cm/sec 121.9 cm/sec 164.4 cm/sec 1.7 mmHg MV A max jeanna: MV P1/2t: 48.0 msec Ao max PG: LV V1 max: 107.1 cm/sec 10.8 mmHg 66.1 cm/sec MV E/A: 1.1 MVA(P1/2t): 4.6 cm2 MV dec slope: 743.6 cm/sec2 PA V2 max: TR max jeanna: RAP systole: 67.6 cm/sec 251.6 cm/sec 10.0 mmHg PA max P.8 mmHgTR max P.2 mmHg RVSP(TR): 36.2 mmHg Left Ventricle The left ventricle is moderately dilated. There is mild concentric left ventricular hypertrophy. Left ventricular systolic function is moderately reduced. LV EF is 35-40%. Doppler measurements suggest pseudonormalized left ventricular relaxation, which is associated with grade II/IV or mild to moderate diastolic dysfunction. Regional wall motion abnormalities cannot be excluded due to limited visualization. Right Ventricle The right ventricle is grossly normal size. The right ventricle appears to be hypertrophied. The right ventricular systolic function is normal. Atria The right atrium is normal in size. The left atrium is moderately dilated. Interarterial septum not well visualized and not well dopplered. Cannot comment on ASD/PFO presence. Mitral Valve The mitral valve leaflets are sclerotic and show some degree of functional abnormality. There is no mitral valve stenosis. There is a mild to moderate amount of mitral regurgitation. Aortic Valve The aortic valve is mildly calcified. There is no aortic valve stenosis. There is a trace to mild amount of aortic regurgitation. Tricuspid Valve The tricuspid valve is not well visualized secondary to technical limitations. There is no tricuspid stenosis. There is a trace to mild amount of tricuspid regurgitation. There is moderate pulmonary hypertension by echo. Right ventricular systolic pressure is estimated to be elevated at 50-60mmHg. Pulmonic Valve The pulmonic valve is not well visualized. Great Vessels The aortic root is not well visualized but is probably normal size. The inferior vena cava appeared normal and decreased < 50% with respiration (RAP 10-15 mmHg). Effusions Minimal pericardial effusion. : MANAN LOWE > Manan Lowe
[2016-10-15] MEDS: NORMAL SALINE 250 ML with FUROSEMIDE 250 MG IV PRN ×2 (19:55)
[2016-10-15] MEDS: VANCOMYCIN HCL 2,000 MG in DEXTROSE 5%-WATER 500 ML IV SCH (20:02)
[2016-10-15] MEDS: WARFARIN SODIUM 5 MG TABLET PO SCH (21:41)
[2016-10-16 04:35] LABS: ABSOLUTE EOSINOPHILS # (AUTO) 0.1 10^3/uL (0.0-0.6); ABSOLUTE LYMPHOCYTES (AUTO) 0.8 10^3/uL (0.5-4.7); ABSOLUTE MONOCYTES (AUTO) 1.3 10^3/uL (0.1-1.4); ABSOLUTE NEUT (AUTO) 11.6 10^3/uL (1.7-8.2); BASOPHILS % (AUTO) 0.3 % (0-2); EOSINOPHILS % (AUTO) 0.8 % (0-6); HEMATOCRIT 31.4 % (37.9-51.0); HEMOGLOBIN 9.3 g/dL (13.5-17.0); HGB HCT DIFFERENCE -3.5; LYMPHOCYTES % (AUTO) 5.5 % (13-45); MEAN CORPUSCULAR HEMOGLOBIN 21.9 pg (27.0-33.4); MEAN CORPUSCULAR HGB CONC 29.8 g/dL (32.0-36.0); MEAN CORPUSCULAR VOLUME 73 fl (80-97); MONOCYTES % (AUTO) 9.3 % (3-13); RED BLOOD COUNT 4.28 10^6/uL (4.35-5.55); SEGMENTED NEUTROPHILS % (AUTO) 84.1 % (42-78); WHITE BLOOD COUNT 13.7 10^3/uL (4.0-10.5)
[2016-10-16 04:37] LABS: PROTHROMBIN TIME 23.2 SEC (11.4-15.4)
[2016-10-16 04:44] LABS: ANION GAP 11 (5-19); BLOOD UREA NITROGEN 32 mg/dL (7-20); CALCIUM 8.8 mg/dL (8.4-10.2); CARBON DIOXIDE 34 mmol/L (22-30); CHLORIDE 91 mmol/L (98-107); CREATININE RESULT 1.71 mg/dL (0.52-1.25); GLUCOSE 194 mg/dL (75-110); POTASSIUM 3.7 mmol/L (3.6-5.0); SODIUM 136.1 mmol/L (137-145)
[2016-10-16] MEDS: CEFTRIAXONE 1 GM/D5W RTU 1 GM/50 ML RTUPB IV SCH (09:43)
[2016-10-16] MEDS: CARVEDILOL 12.5 MG TABLET PO SCH ×2 (09:43→21:26)
[2016-10-16] MEDS: FAMOTIDINE 20 MG TABLET PO SCH ×2 (09:43→21:27)
[2016-10-16] MEDS: NICOTINE 21 MG/24 HR PATCH.TD24 TD SCH (09:43)
[2016-10-16] MEDS: DOCUSATE SODIUM 100 MG CAPSULE PO SCH (09:43)
[2016-10-16] MEDS: AMIODARONE HCL 200 MG TABLET PO SCH ×2 (09:43→21:27)
[2016-10-16] MEDS: INSULIN LISPRO 100 UNIT/ML 3 ML VIAL SUBCUT PRN ×4 (09:55→22:25)
--- NOTE | 2016-10-16 13:48 | PDOC PROGRESS REPORT ---
Subjective Progress Note for:: 10/16/16 Physical Exam Vital Signs: Temp Pulse Resp BP Pulse Ox 99.0 F 94 20 157/77 H 94 10/16/16 11:28 10/16/16 08:17 10/16/16 11:28 10/16/16 11:28 10/16/16 08:17 Intake & Output 10/15/16 10/16/16 10/17/16 06:59 06:59 06:59 Intake Total 1103 1168 400 Output Total 1075 4000 600 Balance 28 -0424 -200 Weight 124.3 kg 121.4 kg Physical exam: General: This is a tall well-developed and nourished appearing white male resting in bed on bilevel Pap currently in no acute distress Heart: Regular rate and rhythm. No rubs or gallops. 2/6 systolic ejection murmur. Lungs: Clear from the anterior perspective with equal rise and fall of the chest. He remains on bilevel Pap Abdomen: Distended the patient has anasarca Extremities: No clubbing or cyanosis. Anasarca is present but less so. Skin: The patient has superficial wounds on the right felix. Appear clean dry and intact. There are also some superficial sores on the joints of the right toes. Patient has dry exfoliating skin bilaterally. On the left foot he has ulceration under fourth digit. Neuro: Awake and alert. He is not oriented. He cannot tell me where he is. Results Laboratory Results: 10/16/16 04:16 10/16/16 04:16 10/15/16 10/16/16 10/16/16 18:20 04:16 04:16 WBC 13.7 H RBC 4.28 L Hgb 9.3 L Hct 31.4 L MCV 73 L MCH 21.9 L MCHC 29.8 L RDW 23.0 H Plt Count 364 Seg Neutrophils % 84.1 H Lymphocytes % 5.5 L Monocytes % 9.3 Eosinophils % 0.8 Basophils % 0.3 Absolute Neutrophils 11.6 H Absolute Lymphocytes 0.8 Absolute Monocytes 1.3 Absolute Eosinophils 0.1 Absolute Basophils 0.0 Carbonic Acid 1.64 H HCO3/H2CO3 Ratio 21:1 ABG pH 7.43 ABG pCO2 54.4 H ABG pO2 79.7 L ABG HCO3 35.5 H ABG O2 Saturation 95.9 ABG Base Excess 9.8 FiO2 35% Sodium 136.1 L Potassium 3.7 Chloride 91 L Carbon Dioxide 34 H Anion Gap 11 BUN 32 H Creatinine 1.71 H Est GFR ( Amer) 47 L Est GFR (Non-Af Amer) 39 L Glucose 194 H Calcium 8.8 10/13/16 20:45 Clean Catch Midstream Urine Culture - Final NO GROWTH 2 DAYS 10/13/16 17:47 NT-Pro-B Natriuret Pep 8600 H Impressions: Chest X-Ray 10/15/16 00:00 IMPRESSION: No interval change in the chest. Assessment & Plan - Diagnosis (1) Acute respiratory failure with hypoxia and hypercapnia Plan: Etiology is multifactorial. He has underlying heart failure, COPD with likely exacerbation and CO2 retention, acute bronchitis. Check chest x-ray. Continue bilevel Pap as necessary. No wheezing was evident on exam. Will add low dose steroid. Repeat ABG as needed. (2) Sepsis Qualifiers: Sepsis type: sepsis due to unspecified organism Qualified Code(s): A41.9 - Sepsis, unspecified organism Plan: Sirs/sepsis: Elevated white blood cell count. It has come down some today. Fleming cultures are so far negative. Repeat chest x-ray does not show any infiltrate. Currently on vancomycin and cefepime. With sudden onset in respiratory distress, a question if the patient had any sort of aspiration event. There have been no reports of difficulty swallowing. (3) Acute systolic (congestive) heart failure Plan: Continue diuresis. Continue Neri catheter. Cardiology has been consulted. Echocardiogram showed EF of 30-35%. Grade 2 diastolic failure. Chest x-ray shows no change. (4) Atrial fibrillation with rapid ventricular response Plan: Continue amiodarone. Patient is rate controlled. Continue warfarin (5) Cellulitis Qualifiers: Site of cellulitis of extremity: lower extremity Laterality: unspecified laterality Is this a current diagnosis for this admission?: YesPlan: Improved no erythema is present (6) Chronic renal disease, stage IV Is this a current diagnosis for this admission?: YesPlan: Stable. Nephrology is following (7) Diabetes mellitus Qualifiers: Diabetes mellitus type: type 2 Diabetes mellitus complication status: with circulatory complication Diabetes mellitus complication detail: with other circulatory complications Diabetes mellitus shelter insulin use: unspecified intermediate card tender insulin use status Qualified Code(s): E11.59 - Type 2 diabetes mellitus with other circulatory complications Is this a current diagnosis for this admission?: YesPlan: Continue current meds. Continue sliding scale insulin. (8) Diabetic foot ulcer Qualifiers: Diabetes mellitus type: type 2 Laterality: unspecified laterality Is this a current diagnosis for this admission?: YesPlan: Continue local wound care. His wounds appear quite clean. I do not suspect that they are the cause of his current elevation in white count. The wounds are quite shallow and do not look erythematous. There is no purulence. (9) COPD (chronic obstructive pulmonary disease) Qualifiers: COPD type: unspecified COPD Qualified Code(s): J44.9 - Chronic obstructive pulmonary disease, unspecified Is this a current diagnosis for this admission?: YesPlan: Patient certainly has been in acute exacerbation. PCO2 was greater than 90. Going to add low-dose Solu-Medrol. Believe this will help in his recovery. - Time Time Spent with patient: 25-34 minutes - Inpatient Certification Medical Necessity: Need Close Monitoring Due to Risk of Patient Decompensation
[2016-10-16] MEDS ORDERED: METHYLPREDNISOLONE INJ 40 MG/1 ML SDV IV ONE (14:30)
[2016-10-16] MEDS: OXYCODONE-ACETAMINOPHEN 5-325 MG TABLET PO PRN (14:36)
[2016-10-16] MEDS: LORAZEPAM INJ 2 MG/1 ML VIAL IV PRN (17:13)
[2016-10-16] MEDS: NORMAL SALINE 250 ML with FUROSEMIDE 250 MG IV PRN ×2 (17:13)
--- NOTE | 2016-10-16 17:14 | PDOC CONSULTATION ---
Consultation Consult Date: 10/15/16 Attending physician:: CHESTER Saha BUSTENATASHA Consult reason:: Shortness of breath, generalized anasarca History of Present Illness Admission Date/PCP: 10/13/16 17:15 HANK LOCKETT MD Patient complains of: Shortness of breath and generalized edema History of Present Illness: LEOPOLDO SANCHEZ is a 76 year old male with a history of complicated diabetes mellitus,Hypertension, CKD stage 4, Chronic congestive heart failure, History of severe noncompliance with diet and medications, chronic non healing diabetic ulcers, was found to be more anemic than usual, worsening edema c/w anasarca, cough productive of green phlegm and worsening leg wounds from venous stasis and known mild to mod arterial disease when seen in my office the other day. He was advised admission and discussed with Dr Sutherland Hospitalist who proceeded to admit him. He has been having recurrent falls at home over the last few weeks.On one of his recent falls, his could not lift him up and had to call EMS.He says his legs feels very weak and is just gives out under him. He gives no history of any orthostasis, focal deficits or seizures. His hemoglobin was 7.8 down from 11 just a couple months ago without any clinical apparent bleeding at home or on exam . He is on coumadin for chronic afib. Scr at his baseline around 2.0. COPD is worse with increasing cough productive of green phlegm but no fever or chills, no increase in his home O2 at 3L/min or increased use of his home neb machine. Leg wounds are worsening and appearing spontaneously as his edema worsens and now tracks up to umbilicus. He did have redness over the legs suggestive of early cellulitis. No history of any fever chills. His initial clinical presentation was that of acute on chronic congestive heart failure, acute on chronic bronchitis, acute on chronic anemia, early cellulitis on bilateral venous stasis with nonhealing diabetic ulcers and progressive generalized debilitation.This is required for institutionalized treatment and he has been admitted. On today's evaluation patient has already been given 2 pints of blood transfusion, started on IV antibiotics and diuretics and patient is feeling lots better. Past Medical History Cardiac Medical History: Reports: Congestive Heart Failure, Coronary Artery Disease, Hypertension Pulmonary Medical History: Reports: Chronic Obstructive Pulmonary Disease (COPD) Neurological Medical History: Reports: Other - peripheral neuropathy Endocrine Medical History: Reports: Diabetes Mellitus Type 2 Renal/ Medical History: Reports: Chronic Kidney Disease GI Medical History: Reports: Gastroesophageal Reflux Disease Musculoskeltal Medical History: Reports: Arthritis Hematology: Reports: Anemia - Noncompliance with diet and medication Past Surgical History Past Surgical History: Reports: Appendectomy, Cardiac Catheterization Social History Smoking Status: Current Every Day Smoker Pipes Per Day: 8 Frequency of Alcohol Use: Rare Hx Recreational Drug Use: No Drugs: None Hx Prescription Drug Abuse: No - Advance Directive Resuscitation Status: Full Code Family History Family History: Reviewed & Not Pertinent Parental Family History Reviewed: Yes Children Family History Reviewed: Yes Sibling(s) Family History Reviewed.: Yes Medication/Allergy Home Medications: Carvedilol [Coreg] 2 tab PO Q12 04/05/15 Furosemide [Lasix 40 mg Tablet] 80 mg PO QAM #60 tablet 04/12/15 Insulin Glargine,Hum.rec.anlog [Lantus Insulin 100 Unit/mL] 10 unit SUBCUT Q12 # 10 insuln.pen 04/12/15 Linezolid [Zyvox 600 mg Tablet] 600 mg PO Q12 #20 tablet 04/12/15 Amiodarone HCl [Cordarone 200 mg Tablet] 100 mg PO Q12 10/13/16 Aspirin [Aspirin 81 mg Chewable Tablet] 81 mg PO QPM 10/13/16 Budesonide/Formoterol Fumarate [Symbicort Hfa 160-4.5 Mcg Inhaler 6 gm] 2 puff IH Q12 10/13/16 Carvedilol [Coreg 12.5 mg Tablet] 12.5 mg PO Q12 10/13/16 Cholecalciferol (Vitamin D3) [Vitamin D3 2000 unit Tablet] 2,000 unit PO DAILY 10/13/16 Diphenhydramine HCl [Benadryl 50 mg Capsule] 50 mg PO QHS 10/13/16 Docusate Sodium [Colace 100 mg Capsule] 100 mg PO Q4 10/13/16 Furosemide [Lasix] 40 mg PO QPM 10/13/16 Furosemide [Lasix] 80 mg PO QAM 10/13/16 Gabapentin [Neurontin 400 mg Capsule] 800 mg PO Q12 10/13/16 Glimepiride [Amaryl 1 mg Tablet] 2 mg PO QAM 10/13/16 Hydromorphone HCl [Dilaudid 2 mg Tablet] 2 mg PO Q4 10/13/16 Ipratropium/Albuterol Sulfate [Duoneb 3 ml Ampul] 3 ml NEB RTQ4HP PRN 10/13/16 Multivitamin W/Iron, Minerals [Compete] 1 tab PO DAILY 10/13/16 Oxybutynin Chloride [Ditropan Xl] 10 mg PO DAILY 10/13/16 Spironolactone [Aldactone 25 mg Tablet] 25 mg PO DAILY 10/13/16 Warfarin Sodium [Coumadin 5 mg Tablet] 5.5 mg PO QHS 10/13/16 Hydromorphone HCl 2 mg PO QID PRN 10/14/16 Allergies/Adverse Reactions: PEPE Inhibitors [Pepe Inhibitors] Allergy (Severe, Verified 04/05/15 03:38) angioedema finasteride [Finasteride] Allergy (Severe, Verified 04/05/15 03:38) angioedema lisinopril [Lisinopril] Allergy (Severe, Verified 04/05/15 03:37) angioedema Physical Exam Vital Signs: Temp Pulse Resp BP Pulse Ox 98.6 F 86 18 140/72 H 92 10/15/16 12:35 10/15/16 12:35 10/15/16 12:35 10/15/16 12:35 10/15/16 12:35 Intake & Output 10/14/16 10/15/16 10/16/16 06:59 06:59 06:59 Intake Total 1609 1103 Output Total 1923 1075 Balance -316 28 Weight 126.3 kg 124.3 kg Results Laboratory Results: 10/15/16 04:14 10/15/16 04:14 10/13/16 10/15/16 10/15/16 17:47 00:45 04:14 WBC 14.8 H RBC 4.39 Hgb 9.3 L Hct 32.5 L MCV 74 L MCH 21.2 L MCHC 28.7 L RDW 22.5 H Plt Count 335 Seg Neutrophils % Not Reportable Lymphocytes % Not Reportable Monocytes % Not Reportable Eosinophils % Not Reportable Basophils % Not Reportable Absolute Neutrophils Not Reportable Absolute Lymphocytes Not Reportable Absolute Monocytes Not Reportable Absolute Eosinophils Not Reportable Absolute Basophils Not Reportable Carbonic Acid 2.91 H HCO3/H2CO3 Ratio 12:1 ABG pH 7.19 L* ABG pCO2 96.7 H* ABG pO2 95.0 ABG HCO3 35.8 H ABG O2 Saturation 94.9 ABG Base Excess 5.1 FiO2 4 L Sodium Potassium Chloride Carbon Dioxide Anion Gap BUN Creatinine Est GFR ( Amer) Est GFR (Non-Af Amer) Glucose Calcium Magnesium Transferrin 378 H 10/15/16 04:14 WBC RBC Hgb Hct MCV MCH MCHC RDW Plt Count Seg Neutrophils % Lymphocytes % Monocytes % Eosinophils % Basophils % Absolute Neutrophils Absolute Lymphocytes Absolute Monocytes Absolute Eosinophils Absolute Basophils Carbonic Acid HCO3/H2CO3 Ratio ABG pH ABG pCO2 ABG pO2 ABG HCO3 ABG O2 Saturation ABG Base Excess FiO2 Sodium 134.4 L Potassium 4.0 Chloride 88 L Carbon Dioxide 35 H Anion Gap 11 BUN 33 H Creatinine 1.94 H Est GFR ( Amer) 41 L Est GFR (Non-Af Amer) 34 L Glucose 241 H Calcium 8.7 Magnesium 2.0 Transferrin 10/13/16 20:45 Clean Catch Midstream Urine Culture - Final NO GROWTH 2 DAYS 10/13/16 17:47 NT-Pro-B Natriuret Pep 8600 H Impressions: Chest X-Ray 10/13/16 17:20 IMPRESSION: No significant interval change. No acute findings. Other findings as noted above Assessment & Plan - Diagnosis (1) Acute exacerbation of CHF (congestive heart failure) Qualifiers: Congestive heart failure type: systolic Qualified Code(s): I50.23 - Acute on chronic systolic (congestive) heart failure Is this a current diagnosis for this admission?: Yes (2) COPD (chronic obstructive pulmonary disease) Qualifiers: COPD type: unspecified COPD Qualified Code(s): J44.9 - Chronic obstructive pulmonary disease, unspecified Is this a current diagnosis for this admission?: Yes (3) Encephalopathy Is this a current diagnosis for this admission?: Yes (4) Hypertension Qualifiers: Hypertension type: essential hypertension Qualified Code(s): I10 - Essential (primary) hypertension Is this a current diagnosis for this admission?: Yes (5) Tobacco abuse Is this a current diagnosis for this admission?: Yes (6) Acute and chronic respiratory failure ([id number]) Qualifiers: Respiratory failure complication: hypoxia and hypercapnia Qualified Code(s): J96.21 - Acute and chronic respiratory failure with hypoxia Is this a current diagnosis for this admission?: Yes (7) CKD (chronic kidney disease) stage 3, GFR 30-59 ml/min Is this a current diagnosis for this admission?: Yes (8) Atrial fibrillation with rapid ventricular response Is this a current diagnosis for this admission?: Yes - Notes Notes: Acute exacerbation of CHF: Review of previous records suggest that patient has both systolic and diastolic heart failure, chronic with acute exacerbation currently. Patient also on exam noted to have significant element of right- sided heart failure. Patient also noted to have significant COPD. At this point agree with diuretic therapy, salt and fluid restriction. Continue management with PEPE/ARB, beta corinna therapy as tolerated. Overall prognosis is guarded as patient has severe other comorbid conditions ongoing. COPD: Patient noted to have severe COPD. Patient has been advised to quit smoking. Encephalopathy: Possibly related to CO2 retention, dementia etc. Hypertension: Blood pressure seems reasonably well controlled. Tobacco abuse: Patient has been advised to quit smoking. Acute on chronic respiratory failure with hypoxemia and hypercarbia: This is a significant problem. Continue noninvasive positive pressure ventilation. Continue with computer system specialist recommendation. Chronic kidney disease: Currently stable. Atrial fibrillation: Currently patient noted to be in sinus rhythm. Recommend rate control. Continue warfarin therapy for the time being. - Time Time Spent: 30 to 50 Minutes - CODE STATUS was discussed, patient remains full code. Surrogate decision-maker patient's . Multiple medical problems were addressed. More than 50% of the time spent coordinating care, discussing management plans with involved caregivers. Management plans discussed with involved personnels. Medical decision making was of moderate to high complexity , patient's has multiple comorbidities. Medications reviewed and adjusted accordingly: Yes
[2016-10-16] MEDS: PHARMACY COMMUNICATION ORDER MC SCH (18:49)
[2016-10-16] MEDS: VANCOMYCIN HCL 2,000 MG in DEXTROSE 5%-WATER 500 ML IV SCH (20:17)
[2016-10-16] MEDS: METHYLPREDNISOLONE INJ 40 MG/1 ML SDV IV SCH (21:24)
[2016-10-16] MEDS: WARFARIN SODIUM 5 MG TABLET PO SCH (21:27)
[2016-10-17 05:11] LABS: HEMATOCRIT 32.7 % (37.9-51.0); HGB HCT DIFFERENCE -2.7; MEAN CORPUSCULAR HEMOGLOBIN 22.1 pg (27.0-33.4); MEAN CORPUSCULAR HGB CONC 30.4 g/dL (32.0-36.0); MEAN CORPUSCULAR VOLUME 73 fl (80-97); RED CELL DISTRIBUTION WIDTH 23.2 % (11.5-14.0); WHITE BLOOD COUNT 9.6 10^3/uL (4.0-10.5)
[2016-10-17 05:14] LABS: ANION GAP 13 (5-19); BLOOD UREA NITROGEN 33 mg/dL (7-20); CALCIUM 8.5 mg/dL (8.4-10.2); CARBON DIOXIDE 37 mmol/L (22-30); CHLORIDE 89 mmol/L (98-107); GLUCOSE 245 mg/dL (75-110); MAGNESIUM 2.3 mg/dL (1.6-2.3); POTASSIUM 3.9 mmol/L (3.6-5.0); SODIUM 139.2 mmol/L (137-145)
[2016-10-17 05:21] LABS: BASOPHILS % (MANUAL) 0 % (0-2); EOSINOPHILS % (MANUAL) 0 % (0-6); LYMPHOCYTES % (MANUAL) 8 % (13-45); TOTAL CELLS COUNTED 100
[2016-10-17 05:22] LABS: ANISOCYTOSIS 3+; MICROCYTOSIS 1+; OVALOCYTES 1+; POIKILOCYTOSIS 1+; POLYCHROMASIA SLIGHT; ROULEAUX SLIGHT
[2016-10-17] MEDS: INSULIN LISPRO 100 UNIT/ML 3 ML VIAL SUBCUT PRN ×4 (09:03→22:32)
[2016-10-17] MEDS: CEFTRIAXONE 1 GM/D5W RTU 1 GM/50 ML RTUPB IV SCH (09:53)
[2016-10-17] MEDS: DOCUSATE SODIUM 100 MG CAPSULE PO SCH (09:53)
[2016-10-17] MEDS: AMIODARONE HCL 200 MG TABLET PO SCH ×2 (09:53→21:52)
[2016-10-17] MEDS: CARVEDILOL 12.5 MG TABLET PO SCH ×2 (09:53→21:50)
[2016-10-17] MEDS: METHYLPREDNISOLONE INJ 40 MG/1 ML SDV IV SCH ×2 (09:53→21:50)
[2016-10-17] MEDS: NICOTINE 21 MG/24 HR PATCH.TD24 TD SCH (09:53)
[2016-10-17] MEDS: FAMOTIDINE 20 MG TABLET PO SCH ×2 (09:53→21:52)
--- NOTE | 2016-10-17 11:02 | EKG REPORT ---
SEVERITY:- NORMAL ECG - SINUS RHYTHM : Confirmed by: Dayan Ryan MD 17-Oct-2016 11:01:46
--- NOTE | 2016-10-17 11:17 | PDOC PROGRESS REPORT ---
Subjective Progress Note for:: 10/16/16 Subjective:: Patient seems to be doing about the same and is noted to be very confused and at times agitated. Patient apparently pulled off the CPAP mask and also currently now in restraints just to protect himself. Patient is not noted to have any chest arm or neck discomfort. Patient not noted to have or describing any PND, orthopnea.. Patient does not seem to be in any other significant discomfort. Patient is maintaining sinus rhythm on the monitor. System review: No other significant changes Medications reviewed. Physical Exam Vital Signs: Temp Pulse Resp BP Pulse Ox 98.2 F 94 28 H 174/95 H 94 10/16/16 08:17 10/16/16 08:17 10/16/16 08:17 10/16/16 08:17 10/16/16 08:17 Intake & Output 10/15/16 10/16/16 10/17/16 06:59 06:59 06:59 Intake Total 1103 1168 Output Total 1075 4000 Balance 28 -2832 Weight 124.3 kg 121.4 kg Exam: GENERAL: well-nourished and in no acute distress. Patient is alert but not oriented to place time or person. HEAD: Atraumatic, normocephalic. EYES: Pupils equal round and reactive to light, extraocular movements intact, sclera anicteric, conjunctiva are normal. ENT: TMs normal, nares patent, oropharynx clear without exudates. Moist mucous membranes. No oral ulcerations or bleeding gums noted NECK: supple without lymphadenopathy or JVD. Trachea is central. No cervical or axillary lymphadenopathy noted. Carotids are 2+ LUNGS: Breath sounds bibasilar fine crackles at bases. No significant dullness noted. CHEST: Palpation of chest wall shows no significant chest wall tenderness. HEART: [place] OUTSIDE CUTTER HAND, No PSH, 2/6 ALEKSANDAR aortic area, 1/6 abrams systolic murmur mitral area, rubs or gallops. ABDOMEN: Soft, no significant tenderness appreciated, normoactive bowel sounds. No guarding, no rebound. No rigidity noted . No masses appreciated. EXTREMITIES: Pedal pulses are 1-2+, no calf tenderness noted, 1 + pedal edema noted. No clubbing or cyanosis. NEUROLOGICAL: Patient is alert but is not able to participate in neurological exam because of patient's current mental status PSYCH: Patient cannot participate in a neurologic and psych exam because of the patient's current mental status SKIN: No significant ecchymosis, some chronic dermatitis rash noted to lower legs. A covered ulcer noted right lower leg. MUSCULOSKELETAL EXAM: No significant joint swelling noted. Results Laboratory Results: 10/16/16 04:16 10/16/16 04:16 10/15/16 10/16/16 10/16/16 18:20 04:16 04:16 WBC 13.7 H RBC 4.28 L Hgb 9.3 L Hct 31.4 L MCV 73 L MCH 21.9 L MCHC 29.8 L RDW 23.0 H Plt Count 364 Seg Neutrophils % 84.1 H Lymphocytes % 5.5 L Monocytes % 9.3 Eosinophils % 0.8 Basophils % 0.3 Absolute Neutrophils 11.6 H Absolute Lymphocytes 0.8 Absolute Monocytes 1.3 Absolute Eosinophils 0.1 Absolute Basophils 0.0 Carbonic Acid 1.64 H HCO3/H2CO3 Ratio 21:1 ABG pH 7.43 ABG pCO2 54.4 H ABG pO2 79.7 L ABG HCO3 35.5 H ABG O2 Saturation 95.9 ABG Base Excess 9.8 FiO2 35% Sodium 136.1 L Potassium 3.7 Chloride 91 L Carbon Dioxide 34 H Anion Gap 11 BUN 32 H Creatinine 1.71 H Est GFR ( Amer) 47 L Est GFR (Non-Af Amer) 39 L Glucose 194 H Calcium 8.8 10/13/16 20:45 Clean Catch Midstream Urine Culture - Final NO GROWTH 2 DAYS 10/13/16 17:47 NT-Pro-B Natriuret Pep 8600 H Impressions: Chest X-Ray 10/15/16 00:00 IMPRESSION: No interval change in the chest. Assessment & Plan - Diagnosis (1) Acute on chronic systolic (congestive) heart failure Is this a current diagnosis for this admission?: Yes (2) Acute and chronic respiratory failure ([id number]) Qualifiers: Respiratory failure complication: hypoxia and hypercapnia Qualified Code(s): J96.21 - Acute and chronic respiratory failure with hypoxia Is this a current diagnosis for this admission?: Yes (4) CAD (coronary artery disease) Qualifiers: Coronary Disease-Associated Artery/Lesion type: unspecified vessel or lesion type Associated angina: without angina Is this a current diagnosis for this admission?: Yes (5) COPD (chronic obstructive pulmonary disease) Qualifiers: COPD type: unspecified COPD Qualified Code(s): J44.9 - Chronic obstructive pulmonary disease, unspecified Is this a current diagnosis for this admission?: Yes (6) Encephalopathy Is this a current diagnosis for this admission?: Yes (7) Hypertension Qualifiers: Hypertension type: essential hypertension Qualified Code(s): I10 - Essential (primary) hypertension Is this a current diagnosis for this admission?: Yes - Notes Notes: Acute on chronic systolic heart failure: There is significant right heart CHF in addition to left heart CHF. Continue current management plans. Continue oxygenation and CPAP therapy. Acute on chronic respiratory failure: This has improved. Continue with oxygen supplementation and intermittent positive pressure ventilation, bronchodilator therapy etc. Chronic kidney disease: Currently stable. Continue to monitor renal functions. Coronary artery disease: Symptomatically stable without any active angina or significant dysrhythmia. COPD: Continue current management plans. Encephalopathy: Currently worse but possibly related to underlying dementia with metabolic problems worsening it. Hypertension: Currently under satisfactory control. Blood pressure goal should be 135/85 or less in this gentleman. - Time Time with patient: Greater than 35 minutes - CODE STATUS was discussed, patient today DO NOT RESUSCITATE. Surrogate decision-maker unchanged. Multiple medical problems were addressed. More than 50% of the time spent coordinating care, discussing management plans with involved caregivers. Management plans discussed with involved personnels. Medical decision making was of moderate to high complexity, patient's has multiple comorbidities. Medications reviewed and adjusted accordingly: Yes
--- NOTE | 2016-10-17 11:35 | PDOC PROGRESS REPORT ---
Subjective Progress Note for:: 10/17/16 Subjective:: Patient seems to be doing better today however has been noted to be very confused and at times agitated. Patient is not noted to have any chest arm or neck discomfort. Patient not noted to have or describing any PND, orthopnea.. Patient does not seem to be in any other significant discomfort. Patient is maintaining sinus rhythm on the monitor. System review: No other significant changes Medications reviewed. Physical Exam Vital Signs: Temp Pulse Resp BP Pulse Ox 97.4 F 80 22 H 180/95 H 97 10/17/16 07:18 10/17/16 07:18 10/17/16 07:18 10/17/16 07:18 10/17/16 07:18 Intake & Output 10/16/16 10/17/16 10/18/16 06:59 06:59 06:59 Intake Total 1168 1226 Output Total 4000 2700 Balance -2792 -9024 Weight 121.4 kg 124 kg Exam: GENERAL: well-nourished and in no acute distress. Patient is alert but not oriented to place time or person. HEAD: Atraumatic, normocephalic. EYES: Pupils equal round and reactive to light, extraocular movements intact, sclera anicteric, conjunctiva are normal. ENT: TMs normal, nares patent, oropharynx clear without exudates. Moist mucous membranes. No oral ulcerations or bleeding gums noted NECK: supple without lymphadenopathy or JVD. Trachea is central. No cervical or axillary lymphadenopathy noted. Carotids are 2+ LUNGS: Breath sounds bibasilar fine crackles at bases. No significant dullness noted. CHEST: Palpation of chest wall shows no significant chest wall tenderness. 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 ABDOMEN: Soft, no significant tenderness appreciated, normoactive bowel sounds. No guarding, no rebound. No rigidity noted . No masses appreciated. EXTREMITIES: Pedal pulses are 1-2+, no calf tenderness noted, 1+ pedal edema noted. No clubbing or cyanosis. NEUROLOGICAL: Patient is alert but is not able to participate in neurological exam because of patient's current mental status PSYCH: Patient cannot participate in a neurologic and psych exam because of the patient's current mental status SKIN: No significant ecchymosis, mild dermatitis rash and a covered ulcers noted right lower leg. MUSCULOSKELETAL EXAM: No significant joint swelling noted. Results Laboratory Results: 10/17/16 04:21 10/17/16 04:21 10/17/16 10/17/16 04:21 04:21 WBC 9.6 RBC 4.50 Hgb 10.0 L Hct 32.7 L MCV 73 L MCH 22.1 L MCHC 30.4 L RDW 23.2 H Plt Count 352 Seg Neutrophils % Not Reportable Lymphocytes % Not Reportable Monocytes % Not Reportable Eosinophils % Not Reportable Basophils % Not Reportable Absolute Neutrophils Not Reportable Absolute Lymphocytes Not Reportable Absolute Monocytes Not Reportable Absolute Eosinophils Not Reportable Absolute Basophils Not Reportable Sodium 139.2 Potassium 3.9 Chloride 89 L Carbon Dioxide 37 H Anion Gap 13 BUN 33 H Creatinine 1.60 H Est GFR ( Amer) 51 L Est GFR (Non-Af Amer) 42 L Glucose 245 H Calcium 8.5 Magnesium 2.3 10/13/16 17:47 NT-Pro-B Natriuret Pep 8600 H Impressions: Chest X-Ray 10/15/16 00:00 IMPRESSION: No interval change in the chest. Assessment & Plan - Diagnosis (1) Acute on chronic systolic (congestive) heart failure Is this a current diagnosis for this admission?: Yes (2) Acute and chronic respiratory failure ([id number]) Qualifiers: Respiratory failure complication: hypoxia and hypercapnia Qualified Code(s): J96.21 - Acute and chronic respiratory failure with hypoxia Is this a current diagnosis for this admission?: Yes (3) CKD (chronic kidney disease) stage 3, GFR 30-59 ml/min Is this a current diagnosis for this admission?: Yes (4) CAD (coronary artery disease) Qualifiers: Coronary Disease-Associated Artery/Lesion type: unspecified vessel or lesion type Associated angina: without angina Is this a current diagnosis for this admission?: Yes (5) COPD (chronic obstructive pulmonary disease) Qualifiers: COPD type: unspecified COPD Qualified Code(s): J44.9 - Chronic obstructive pulmonary disease, unspecified Is this a current diagnosis for this admission?: Yes (6) Encephalopathy Is this a current diagnosis for this admission?: Yes (7) Hypertension Qualifiers: Hypertension type: essential hypertension Qualified Code(s): I10 - Essential (primary) hypertension Is this a current diagnosis for this admission?: Yes - Notes Notes: Acute on chronic systolic heart failure: There is significant right heart CHF in addition to left heart CHF. Continue current management plans. Continue oxygenation and CPAP therapy. Patient seems clinically improved. Acute on chronic respiratory failure: This has improved. Continue with oxygen supplementation and intermittent positive pressure ventilation, bronchodilator therapy etc. Chronic kidney disease: Currently stable. Continue to monitor renal functions. Coronary artery disease: Symptomatically stable without any active angina or significant dysrhythmia. COPD: Continue current management plans. Encephalopathy: Currently still a problem but possibly related to underlying dementia with metabolic problems worsening it. Hypertension: Currently under satisfactory control. Blood pressure goal should be 135/85 or less in this gentleman. - Time Time with patient: 15-25 minutes - CODE STATUS was discussed, patient remains DNR. Surrogate decision-maker unchanged. Multiple medical problems were addressed. More than 50% of the time spent coordinating care, discussing management plans with involved caregivers. Management plans discussed with involved personnels. Medical decision making was of moderate to high complexity , patient's has multiple comorbidities.
--- NOTE | 2016-10-17 13:07 | PDOC PROGRESS REPORT ---
Subjective Progress Note for:: 10/17/16 Subjective:: This is a follow-up visit for acute on chronic systolic heart failure. Acute events overnight. The patient apparently rested well and was calm throughout the night. He is currently resting on bilevel Pap when I saw him earlier in the morning wanting to eat. He denies any chest pain or worsening shortness of breath Physical Exam Vital Signs: Temp Pulse Resp BP Pulse Ox 98.5 F 82 20 166/94 H 97 10/17/16 11:08 10/17/16 11:08 10/17/16 11:08 10/17/16 11:08 10/17/16 11:08 Intake & Output 10/16/16 10/17/16 10/18/16 06:59 06:59 06:59 Intake Total 1168 1226 550 Output Total 4000 2700 800 Balance -0589 -0521 -638 Weight 121.4 kg 124 kg Physical exam: General: This is a tall well-developed and nourished appearing white male resting in bed on bilevel Pap currently in no acute distress Heart: Regular rate and rhythm. No rubs or gallops. 2/6 systolic ejection murmur. Lungs: Clear from the anterior perspective with equal rise and fall of the chest. He remains on bilevel Pap Abdomen: Distended the patient has anasarca Extremities: No clubbing or cyanosis. Anasarca is present but less so. Skin: The patient has superficial wounds on the right felix. Appear clean dry and intact. There are also some superficial sores on the joints of the right toes. Patient has dry exfoliating skin bilaterally. On the left foot he has ulceration under fourth digit. Neuro: Awake and alert. He is not oriented. He cannot tell me where he is. He responds I am here Results Laboratory Results: 10/17/16 04:21 10/17/16 04:21 10/17/16 10/17/16 04:21 04:21 WBC 9.6 RBC 4.50 Hgb 10.0 L Hct 32.7 L MCV 73 L MCH 22.1 L MCHC 30.4 L RDW 23.2 H Plt Count 352 Seg Neutrophils % Not Reportable Lymphocytes % Not Reportable Monocytes % Not Reportable Eosinophils % Not Reportable Basophils % Not Reportable Absolute Neutrophils Not Reportable Absolute Lymphocytes Not Reportable Absolute Monocytes Not Reportable Absolute Eosinophils Not Reportable Absolute Basophils Not Reportable Sodium 139.2 Potassium 3.9 Chloride 89 L Carbon Dioxide 37 H Anion Gap 13 BUN 33 H Creatinine 1.60 H Est GFR ( Amer) 51 L Est GFR (Non-Af Amer) 42 L Glucose 245 H Calcium 8.5 Magnesium 2.3 10/13/16 17:47 NT-Pro-B Natriuret Pep 8600 H Impressions: Chest X-Ray 10/15/16 00:00 IMPRESSION: No interval change in the chest. Assessment & Plan - Diagnosis (1) Acute respiratory failure with hypoxia and hypercapnia Plan: Etiology is multifactorial. He has underlying heart failure, COPD with likely exacerbation and CO2 retention, acute bronchitis. Check chest x-ray. Continue bilevel Pap as necessary. No wheezing was evident on exam. Continue low-dose steroid. Repeat ABG as needed. (2) Sepsis Qualifiers: Sepsis type: sepsis due to unspecified organism Qualified Code(s): A41.9 - Sepsis, unspecified organism Plan: Sirs/sepsis: Elevated white blood cell count. It has come down some today. Fleming cultures are so far negative. Repeat chest x-ray does not show any infiltrate. Currently on vancomycin and cefepime. (3) Acute systolic (congestive) heart failure Plan: Continue diuresis. Continue Neri catheter. Cardiology has been consulted. Echocardiogram showed EF of 30-35%. Grade 2 diastolic failure. Chest x-ray shows no change. (4) Atrial fibrillation with rapid ventricular response Is this a current diagnosis for this admission?: YesPlan: Continue amiodarone. Patient is rate controlled. Continue warfarin (5) Cellulitis Qualifiers: Site of cellulitis of extremity: lower extremity Laterality: unspecified laterality Is this a current diagnosis for this admission?: YesPlan: Improved no erythema is present (6) Chronic renal disease, stage IV Is this a current diagnosis for this admission?: YesPlan: Stable. 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 Continue sliding scale insulin. (8) Diabetic foot ulcer Qualifiers: Diabetes mellitus type: type 2 Laterality: unspecified laterality Is this a current diagnosis for this admission?: YesPlan: Continue local wound care. His wounds appear quite clean. I do not suspect that they are the cause of his current elevation in white count. The wounds are quite shallow and do not look erythematous. There is no purulence. (9) COPD (chronic obstructive pulmonary disease) Qualifiers: COPD type: unspecified COPD Qualified Code(s): J44.9 - Chronic obstructive pulmonary disease, unspecified Is this a current diagnosis for this admission?: YesPlan: Patient certainly has been in acute exacerbation. PCO2 was greater than 90. Going to add low-dose Solu-Medrol. Believe this will help in his recovery. - Time Time Spent with patient: 25-34 minutes - Inpatient Certification Medical Necessity: Need Close Monitoring Due to Risk of Patient Decompensation
[2016-10-17] MEDS: LORAZEPAM INJ 2 MG/1 ML VIAL IV PRN (14:15)
[2016-10-17] MEDS: PHARMACY COMMUNICATION ORDER MC SCH (18:23)
[2016-10-17] MEDS: NORMAL SALINE 250 ML with FUROSEMIDE 250 MG IV PRN ×2 (18:54)
[2016-10-17] MEDS: VANCOMYCIN HCL 1,500 MG in DEXTROSE 5%-WATER 250 ML IV SCH (19:44)
[2016-10-17] MEDS: WARFARIN SODIUM 5 MG TABLET PO SCH (21:52)
[2016-10-17] MEDS: OXYCODONE-ACETAMINOPHEN 5-325 MG TABLET PO PRN (22:38)
[2016-10-18] MEDS: LORAZEPAM INJ 2 MG/1 ML VIAL IV PRN ×3 (00:02→17:14)
[2016-10-18] MEDS: HYDRALAZINE HCL INJ/PF 20 MG/1 ML SDV IV PRN (05:48)
[2016-10-18 06:02] LABS: ANION GAP 15 (5-19); BLOOD UREA NITROGEN 44 mg/dL (7-20); CALCIUM 8.7 mg/dL (8.4-10.2); CARBON DIOXIDE 35 mmol/L (22-30); CHLORIDE 89 mmol/L (98-107); CREATININE RESULT 1.68 mg/dL (0.52-1.25); GLUCOSE 267 mg/dL (75-110); MAGNESIUM 2.4 mg/dL (1.6-2.3); POTASSIUM 4.2 mmol/L (3.6-5.0); SODIUM 138.6 mmol/L (137-145)
[2016-10-18 06:13] LABS: HEMATOCRIT 33.1 % (37.9-51.0); HEMOGLOBIN 9.8 g/dL (13.5-17.0); HGB HCT DIFFERENCE -3.7; MEAN CORPUSCULAR HEMOGLOBIN 21.5 pg (27.0-33.4); MEAN CORPUSCULAR HGB CONC 29.6 g/dL (32.0-36.0); MEAN CORPUSCULAR VOLUME 73 fl (80-97); RED BLOOD COUNT 4.55 10^6/uL (4.35-5.55); RED CELL DISTRIBUTION WIDTH 22.6 % (11.5-14.0); WHITE BLOOD COUNT 11.1 10^3/uL (4.0-10.5)
[2016-10-18 06:20] LABS: BASOPHILS % (MANUAL) 0 % (0-2); EOSINOPHILS % (MANUAL) 0 % (0-6); LYMPHOCYTES % (MANUAL) 1 % (13-45); TOTAL CELLS COUNTED 100
[2016-10-18 06:21] LABS: ANISOCYTOSIS 3+; HYPOCHROMASIA SLIGHT; MICROCYTOSIS 1+; OVALOCYTES SLIGHT; POIKILOCYTOSIS SLIGHT; POLYCHROMASIA 1+; TARGET CELLS SLIGHT
[2016-10-18] MEDS ORDERED: HYDRALAZINE HCL 10 MG TABLET PO PRN (07:40)
[2016-10-18] MEDS: INSULIN LISPRO 100 UNIT/ML 3 ML VIAL SUBCUT PRN ×4 (07:42→21:58)
[2016-10-18] MEDS: NICOTINE 21 MG/24 HR PATCH.TD24 TD SCH (09:09)
[2016-10-18] MEDS: CEFTRIAXONE 1 GM/D5W RTU 1 GM/50 ML RTUPB IV SCH (09:09)
[2016-10-18] MEDS: METHYLPREDNISOLONE INJ 40 MG/1 ML SDV IV SCH ×2 (09:10→21:57)
[2016-10-18] MEDS: DOCUSATE SODIUM 100 MG CAPSULE PO SCH (09:10)
[2016-10-18] MEDS: CARVEDILOL 12.5 MG TABLET PO SCH ×2 (09:10→22:10)
[2016-10-18] MEDS: AMIODARONE HCL 200 MG TABLET PO SCH ×2 (09:10→22:09)
[2016-10-18] MEDS: FAMOTIDINE 20 MG TABLET PO SCH ×2 (09:10→21:57)
[2016-10-18] MEDS: OXYCODONE-ACETAMINOPHEN 5-325 MG TABLET PO PRN ×2 (09:43→20:34)
--- NOTE | 2016-10-18 11:49 | PDOC PROGRESS REPORT ---
Subjective Progress Note for:: 10/18/16 Subjective:: Patient seems to be doing about the same and is noted to be very confused and at times agitated. Patient still has intermittent agitation and in restraints. He is however more alert today. Patient is not noted to have any chest arm or neck discomfort. Patient not noted to have or describing any PND, orthopnea.. Patient does not seem to be in any other significant discomfort. Patient is maintaining sinus rhythm on the monitor. System review: No other significant changes Medications reviewed. Physical Exam Vital Signs: Temp Pulse Resp BP Pulse Ox 98.0 F 83 19 163/83 H 97 10/18/16 07:30 10/18/16 07:30 10/18/16 07:30 10/18/16 07:30 10/18/16 07:30 Intake & Output 10/17/16 10/18/16 10/19/16 06:59 06:59 06:59 Intake Total 1226 1536 Output Total 2700 2700 Balance -1474 -1164 Weight 124 kg 123.4 kg Exam: GENERAL: well-nourished and in no acute distress. Patient is alert but oriented only to person. HEAD: Atraumatic, normocephalic. EYES: Pupils equal round and reactive to light, extraocular movements intact, sclera anicteric, conjunctiva are normal. ENT: TMs normal, nares patent, oropharynx clear without exudates. Moist mucous membranes. No oral ulcerations or bleeding gums noted NECK: supple without lymphadenopathy or JVD. Trachea is central. No cervical or axillary lymphadenopathy noted. Carotids are 2+ LUNGS: Breath sounds bibasilar fine crackles at bases. No significant dullness noted. CHEST: Palpation of chest wall shows no significant chest wall tenderness. 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 ABDOMEN: Soft, no significant tenderness appreciated, normoactive bowel sounds. No guarding, no rebound. No rigidity noted . No masses appreciated. EXTREMITIES: Pedal pulses are 1-2+, no calf tenderness noted, Trace + pedal edema noted. No clubbing or cyanosis. NEUROLOGICAL: Patient is alert but is not able to participate in neurological exam because of patient's current mental status PSYCH: Patient cannot participate in a neurologic and psych exam because of the patient's current mental status SKIN: No significant ecchymosis, chronic dermatitis rash and superficial ulcerations noted both legs. MUSCULOSKELETAL EXAM: No significant joint swelling noted. Results Laboratory Results: 10/18/16 05:09 10/18/16 05:09 10/18/16 10/18/16 05:09 05:09 WBC 11.1 H RBC 4.55 Hgb 9.8 L Hct 33.1 L MCV 73 L MCH 21.5 L MCHC 29.6 L RDW 22.6 H Plt Count 385 Seg Neutrophils % Not Reportable Lymphocytes % Not Reportable Monocytes % Not Reportable Eosinophils % Not Reportable Basophils % Not Reportable Absolute Neutrophils Not Reportable Absolute Lymphocytes Not Reportable Absolute Monocytes Not Reportable Absolute Eosinophils Not Reportable Absolute Basophils Not Reportable Sodium 138.6 Potassium 4.2 Chloride 89 L Carbon Dioxide 35 H Anion Gap 15 BUN 44 H Creatinine 1.68 H Est GFR ( Amer) 48 L Est GFR (Non-Af Amer) 40 L Glucose 267 H Calcium 8.7 Magnesium 2.4 H 10/13/16 17:47 NT-Pro-B Natriuret Pep 8600 H Impressions: Chest X-Ray 10/15/16 00:00 IMPRESSION: No interval change in the chest. Assessment & Plan - Diagnosis (1) Acute on chronic systolic (congestive) heart failure Is this a current diagnosis for this admission?: Yes (2) Acute and chronic respiratory failure ([id number]) Qualifiers: Respiratory failure complication: hypoxia and hypercapnia Qualified Code(s): J96.21 - Acute and chronic respiratory failure with hypoxia Is this a current diagnosis for this admission?: Yes (3) CKD (chronic kidney disease) stage 3, GFR 30-59 ml/min Is this a current diagnosis for this admission?: Yes (4) CAD (coronary artery disease) Qualifiers: Coronary Disease-Associated Artery/Lesion type: unspecified vessel or lesion type Associated angina: without angina Is this a current diagnosis for this admission?: Yes (5) COPD (chronic obstructive pulmonary disease) Qualifiers: COPD type: unspecified COPD Qualified Code(s): J44.9 - Chronic obstructive pulmonary disease, unspecified Is this a current diagnosis for this admission?: Yes (6) Encephalopathy Is this a current diagnosis for this admission?: Yes (7) Hypertension Qualifiers: Hypertension type: essential hypertension Qualified Code(s): I10 - Essential (primary) hypertension Is this a current diagnosis for this admission?: Yes - Notes Notes: Acute on chronic systolic heart failure: There is significant right heart CHF in addition to left heart CHF. Continue current management plans. Continue oxygenation and CPAP therapy. Patient seems clinically improved. Currently seems fairly compensated. Patient generally stable from cardiac standpoint. Acute on chronic respiratory failure: This has improved. Continue with oxygen supplementation and intermittent positive pressure ventilation, bronchodilator therapy etc. Chronic kidney disease: Currently stable. Continue to monitor renal functions. Coronary artery disease: Symptomatically stable without any active angina or significant dysrhythmia. COPD: Continue current management plans. Encephalopathy: Currently still a problem but possibly related to underlying dementia with metabolic problems worsening it. Hypertension: Currently under satisfactory control. Blood pressure goal should be 135/85 or less in this gentleman. Patient is generally stable from cardiac standpoint. - Time Time with patient: 15-25 minutes - CODE STATUS : was discussed, patient remains DO NOT RESUSCITATE. Surrogate decision-maker unchanged. Multiple medical problems were addressed. More than 50% of the time spent coordinating care, discussing management plans with involved caregivers. Management plans discussed with involved personnels. Medical decision making was of moderate to high complexity, patient's has multiple comorbidities. Medications reviewed and adjusted accordingly: Yes
--- NOTE | 2016-10-18 13:43 | PDOC PROGRESS REPORT ---
Subjective Progress Note for:: 10/18/16 Subjective:: This is a follow-up visit for acute on chronic systolic heart failure. Acute events overnight. The patient apparently rested well and was calm throughout the night. He is currently resting on bilevel Pap when I saw him earlier in the morning his breakfast was available to him and he wanted to eat. He denies any chest pain or worsening shortness of breath Physical Exam Vital Signs: Temp Pulse Resp BP Pulse Ox 98.0 F 83 19 163/83 H 97 10/18/16 07:30 10/18/16 07:30 10/18/16 07:30 10/18/16 07:30 10/18/16 07:30 Intake & Output 10/17/16 10/18/16 10/19/16 06:59 06:59 06:59 Intake Total 1226 1536 Output Total 2700 2700 Balance -1474 -1164 Weight 124 kg 123.4 kg Physical exam: General: This is a tall well-developed and nourished appearing white male resting in bed on bilevel Pap currently in no acute distress Heart: Regular rate and rhythm. No rubs or gallops. 2/6 systolic ejection murmur. Lungs: Clear from the anterior perspective with equal rise and fall of the chest. He remains on bilevel Pap Abdomen: Distended the patient has anasarca,it is drastically improved. Extremities: No clubbing or cyanosis. Anasarca is present but is markedly improved. Skin: The patient has superficial wounds on the right felix. Appear clean dry and intact. There are also some superficial sores on the joints of the right toes. Patient has dry exfoliating skin bilaterally. On the left foot he has ulceration under fourth digit. Neuro: Awake and alert. He is not oriented. He cannot tell me where he is. Results Laboratory Results: 10/18/16 05:09 10/18/16 05:09 10/18/16 10/18/16 05:09 05:09 WBC 11.1 H RBC 4.55 Hgb 9.8 L Hct 33.1 L MCV 73 L MCH 21.5 L MCHC 29.6 L RDW 22.6 H Plt Count 385 Seg Neutrophils % Not Reportable Lymphocytes % Not Reportable Monocytes % Not Reportable Eosinophils % Not Reportable Basophils % Not Reportable Absolute Neutrophils Not Reportable Absolute Lymphocytes Not Reportable Absolute Monocytes Not Reportable Absolute Eosinophils Not Reportable Absolute Basophils Not Reportable Sodium 138.6 Potassium 4.2 Chloride 89 L Carbon Dioxide 35 H Anion Gap 15 BUN 44 H Creatinine 1.68 H Est GFR ( Amer) 48 L Est GFR (Non-Af Amer) 40 L Glucose 267 H Calcium 8.7 Magnesium 2.4 H 10/13/16 17:47 NT-Pro-B Natriuret Pep 8600 H Impressions: Chest X-Ray 10/15/16 00:00 IMPRESSION: No interval change in the chest. Assessment & Plan - Diagnosis (1) Acute respiratory failure with hypoxia and hypercapnia Plan: Etiology is multifactorial. He has underlying heart failure, COPD with likely exacerbation and CO2 retention, acute bronchitis. Check chest x-ray. Continue bilevel Pap as necessary. No wheezing was evident on exam. Continue low-dose steroid. Repeat ABG as needed. (2) Sepsis Qualifiers: Sepsis type: sepsis due to unspecified organism Qualified Code(s): A41.9 - Sepsis, unspecified organism Plan: Sirs/sepsis: Elevated white blood cell count. It has come down some today. Fleming cultures are so far negative. Repeat chest x-ray does not show any infiltrate. Currently on vancomycin and cefepime. (3) Acute systolic (congestive) heart failure Plan: Continue diuresis. Continue Neri catheter. Cardiology has been consulted. Echocardiogram showed EF of 30-35%. Grade 2 diastolic failure. Chest x-ray shows no change. (4) Atrial fibrillation with rapid ventricular response Is this a current diagnosis for this admission?: YesPlan: Continue amiodarone. Patient is rate controlled. Continue warfarin (5) Cellulitis Qualifiers: Site of cellulitis of extremity: lower extremity Laterality: unspecified laterality Is this a current diagnosis for this admission?: YesPlan: Improved no erythema is present (6) Chronic renal disease, stage IV Is this a current diagnosis for this admission?: YesPlan: Stable. Nephrology is following (7) Diabetes mellitus Qualifiers: Diabetes mellitus type: type 2 Diabetes mellitus complication status: with circulatory complication Diabetes mellitus complication detail: with other circulatory complications Diabetes mellitus rn long term care insulin use: unspecified longterm insulin use status Qualified Code(s): E11.59 - Type 2 diabetes mellitus with other circulatory complications Is this a current diagnosis for this admission?: YesPlan: Continue current meds. Continue sliding scale insulin. (8) Diabetic foot ulcer Qualifiers: Diabetes mellitus type: type 2 Laterality: unspecified laterality Is this a current diagnosis for this admission?: YesPlan: Continue local wound care. His wounds appear quite clean. I do not suspect that they are the cause of his current elevation in white count. The wounds are quite shallow and do not look erythematous. There is no purulence. (9) COPD (chronic obstructive pulmonary disease) Qualifiers: COPD type: unspecified COPD Qualified Code(s): J44.9 - Chronic obstructive pulmonary disease, unspecified Is this a current diagnosis for this admission?: YesPlan: Patient certainly has been in acute exacerbation. PCO2 was greater than 90. Going to add low-dose Solu-Medrol. Believe this will help in his recovery. - Time Time Spent with patient: 25-34 minutes - Inpatient Certification Medical Necessity: Need Close Monitoring Due to Risk of Patient Decompensation
[2016-10-18] MEDS: HYDRALAZINE HCL 10 MG TABLET PO SCH ×2 (15:04→22:10)
[2016-10-18] MEDS ORDERED: LORAZEPAM INJ 2 MG/1 ML VIAL IV ONE (16:00)
[2016-10-18] MEDS: NORMAL SALINE 250 ML with FUROSEMIDE 250 MG IV PRN ×2 (17:18)
[2016-10-18] MEDS: PHARMACY COMMUNICATION ORDER MC SCH (17:28)
[2016-10-18] MEDS: VANCOMYCIN HCL 1,500 MG in DEXTROSE 5%-WATER 250 ML IV SCH (20:34)
[2016-10-18] MEDS ORDERED: LORAZEPAM INJ 2 MG/1 ML VIAL IV SCH (22:00)
[2016-10-18] MEDS: WARFARIN SODIUM 5 MG TABLET PO SCH (22:10)
[2016-10-19] MEDS: LORAZEPAM INJ 2 MG/1 ML VIAL IV PRN ×4 (03:41→23:11)
[2016-10-19 04:54] LABS: ABSOLUTE LYMPHOCYTES (AUTO) 0.4 10^3/uL (0.5-4.7); ABSOLUTE MONOCYTES (AUTO) 0.4 10^3/uL (0.1-1.4); ABSOLUTE NEUT (AUTO) 7.3 10^3/uL (1.7-8.2); BASOPHILS % (AUTO) 0.2 % (0-2); HEMOGLOBIN 9.7 g/dL (13.5-17.0); HGB HCT DIFFERENCE -3.9; LYMPHOCYTES % (AUTO) 5.3 % (13-45); MEAN CORPUSCULAR HEMOGLOBIN 21.6 pg (27.0-33.4); MEAN CORPUSCULAR HGB CONC 29.4 g/dL (32.0-36.0); MEAN CORPUSCULAR VOLUME 73 fl (80-97); MONOCYTES % (AUTO) 4.6 % (3-13); RED BLOOD COUNT 4.51 10^6/uL (4.35-5.55); SEGMENTED NEUTROPHILS % (AUTO) 89.9 % (42-78); WHITE BLOOD COUNT 8.1 10^3/uL (4.0-10.5)
[2016-10-19 05:16] LABS: BLOOD UREA NITROGEN 53 mg/dL (7-20); CALCIUM 8.9 mg/dL (8.4-10.2); CHLORIDE 90 mmol/L (98-107); CREATININE RESULT 1.63 mg/dL (0.52-1.25); GLUCOSE 276 mg/dL (75-110); MAGNESIUM 2.4 mg/dL (1.6-2.3); SODIUM 138.4 mmol/L (137-145)
[2016-10-19 05:34] LABS: ANION GAP 9 (5-19)
[2016-10-19 05:40] LABS: CARBON DIOXIDE 39 mmol/L (22-30)
[2016-10-19] MEDS: HYDRALAZINE HCL 10 MG TABLET PO SCH ×3 (06:54→21:40)
[2016-10-19] MEDS: HYDRALAZINE HCL INJ/PF 20 MG/1 ML SDV IV PRN (06:54)
[2016-10-19] MEDS: INSULIN LISPRO 100 UNIT/ML 3 ML VIAL SUBCUT PRN ×4 (07:20→22:30)
[2016-10-19] MEDS: METHYLPREDNISOLONE INJ 40 MG/1 ML SDV IV SCH (09:45)
[2016-10-19] MEDS: CEFTRIAXONE 1 GM/D5W RTU 1 GM/50 ML RTUPB IV SCH (09:46)
[2016-10-19] MEDS: NICOTINE 21 MG/24 HR PATCH.TD24 TD SCH (09:46)
[2016-10-19] MEDS: CARVEDILOL 12.5 MG TABLET PO SCH ×2 (09:47→21:42)
[2016-10-19] MEDS: FAMOTIDINE 20 MG TABLET PO SCH ×2 (09:47→21:42)
[2016-10-19] MEDS: DOCUSATE SODIUM 100 MG CAPSULE PO SCH (09:47)
[2016-10-19] MEDS: AMIODARONE HCL 200 MG TABLET PO SCH ×2 (09:47→21:39)
[2016-10-19] MEDS: OXYCODONE-ACETAMINOPHEN 5-325 MG TABLET PO PRN (11:41)
--- NOTE | 2016-10-19 12:31 | PDOC PROGRESS REPORT ---
Subjective Progress Note for:: 10/19/16 Subjective:: Patient seems to be doing about the same and is noted to be very confused and at times agitated. Patient noted to be more lethargic today. Patient is still in restraints. Patient does not seem to be in any other significant discomfort. System review: No other significant changes Medications reviewed. Physical Exam Vital Signs: Temp Pulse Resp BP Pulse Ox 98.3 F 85 18 174/102 H 94 10/19/16 11:21 10/19/16 11:21 10/19/16 11:21 10/19/16 11:21 10/19/16 11:21 Intake & Output 10/18/16 10/19/16 10/20/16 06:59 06:59 06:59 Intake Total 1536 1726 Output Total 2700 3400 Balance -1164 -1674 Weight 123.4 kg 124 kg Exam: GENERAL: well-nourished and in no acute distress. Patient is alert but not oriented to place time or person. HEAD: Atraumatic, normocephalic. EYES: Pupils equal round and reactive to light, extraocular movements intact, sclera anicteric, conjunctiva are normal. ENT: TMs normal, nares patent, oropharynx clear without exudates. Moist mucous membranes. No oral ulcerations or bleeding gums noted NECK: supple without lymphadenopathy or JVD. Trachea is central. No cervical or axillary lymphadenopathy noted. Carotids are 2+ LUNGS: Breath sounds bibasilar fine crackles at bases. No significant dullness noted. CHEST: Palpation of chest wall shows no significant chest wall tenderness. 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 ABDOMEN: Soft, no significant tenderness appreciated, normoactive bowel sounds. No guarding, no rebound. No rigidity noted . No masses appreciated. EXTREMITIES: Pedal pulses are 1-2+, no calf tenderness noted, Trace + pedal edema noted. No clubbing or cyanosis. NEUROLOGICAL: Patient is alert but is not able to participate in neurological exam because of patient's current mental status PSYCH: Patient cannot participate in a neurologic and psych exam because of the patient's current mental status SKIN: No significant ecchymosis, chronic dermatitis changes with superficial ulceration but signs of pruritus noted both lower legs. MUSCULOSKELETAL EXAM: No significant joint swelling noted. Results Laboratory Results: 10/19/16 04:39 10/19/16 04:39 10/19/16 10/19/16 04:39 04:39 WBC 8.1 RBC 4.51 Hgb 9.7 L Hct 33.0 L MCV 73 L MCH 21.6 L MCHC 29.4 L RDW 23.0 H Plt Count 360 Seg Neutrophils % 89.9 H Lymphocytes % 5.3 L Monocytes % 4.6 Eosinophils % 0.0 Basophils % 0.2 Absolute Neutrophils 7.3 Absolute Lymphocytes 0.4 L Absolute Monocytes 0.4 Absolute Eosinophils 0.0 Absolute Basophils 0.0 Sodium 138.4 Potassium 4.0 Chloride 90 L Carbon Dioxide 39 H Anion Gap 9 BUN 53 H Creatinine 1.63 H Est GFR ( Amer) 50 L Est GFR (Non-Af Amer) 41 L Glucose 276 H Calcium 8.9 Magnesium 2.4 H 10/13/16 18:40 Blood Blood Culture - Final NO GROWTH IN 5 DAYS 10/13/16 17:47 Blood Blood Culture - Final NO GROWTH IN 5 DAYS 10/13/16 17:47 NT-Pro-B Natriuret Pep 8600 H Impressions: Chest X-Ray 10/15/16 00:00 IMPRESSION: No interval change in the chest. Assessment & Plan - Diagnosis (1) Acute on chronic systolic (congestive) heart failure Is this a current diagnosis for this admission?: Yes (2) Acute and chronic respiratory failure ([id number]) Qualifiers: Respiratory failure complication: hypoxia and hypercapnia Qualified Code(s): J96.21 - Acute and chronic respiratory failure with hypoxia Is this a current diagnosis for this admission?: Yes (3) CKD (chronic kidney disease) stage 3, GFR 30-59 ml/min Is this a current diagnosis for this admission?: Yes (4) CAD (coronary artery disease) Qualifiers: Coronary Disease-Associated Artery/Lesion type: unspecified vessel or lesion type Associated angina: without angina Is this a current diagnosis for this admission?: Yes (5) COPD (chronic obstructive pulmonary disease) Qualifiers: COPD type: unspecified COPD Qualified Code(s): J44.9 - Chronic obstructive pulmonary disease, unspecified Is this a current diagnosis for this admission?: Yes (6) Encephalopathy Is this a current diagnosis for this admission?: Yes (7) Hypertension Qualifiers: Hypertension type: essential hypertension Qualified Code(s): I10 - Essential (primary) hypertension Is this a current diagnosis for this admission?: Yes (8) Paroxysmal atrial fibrillation Is this a current diagnosis for this admission?: Yes - Notes Notes: Acute on chronic systolic heart failure: Patient seems clinically improved. Currently seems fairly compensated. Patient generally stable from cardiac standpoint. Acute on chronic respiratory failure: Patient noted to have comfortable breathing. This has improved. Continue with oxygen supplementation and intermittent positive pressure ventilation, bronchodilator therapy etc. Chronic kidney disease: Currently stable. Continue to monitor renal functions. Coronary artery disease: Symptomatically stable without any active angina or significant dysrhythmia. COPD: Continue current management plans. Encephalopathy: Currently still a significant problem but possibly related to underlying dementia with metabolic problems worsening it. Hypertension: Currently under satisfactory control. Blood pressure goal should be 135/85 or less in this gentleman. Atrial fibrillation, paroxysmal: Patient currently maintaining sinus rhythm. Will repeat an EKG in the morning to look for any changes. Continue chronic Coumadin therapy. Patient is generally stable from cardiac standpoint. - Time Time with patient: 15-25 minutes - CODE STATUS : was discussed, patient remains DO NOT RESUSCITATE. Surrogate decision-maker unchanged. Multiple medical problems were addressed. More than 50% of the time spent coordinating care, discussing management plans with involved caregivers. Management plans discussed with involved personnels. Medical decision making was of moderate to high complexity, patient's has multiple comorbidities.
--- NOTE | 2016-10-19 12:38 | PDOC PROGRESS REPORT ---
Subjective Progress Note for:: 10/19/16 Physical Exam Vital Signs: Temp Pulse Resp BP Pulse Ox 97.5 F 79 20 185/95 H 100 10/19/16 08:02 10/19/16 08:02 10/19/16 08:02 10/19/16 08:02 10/19/16 08:02 Intake & Output 10/18/16 10/19/16 10/20/16 06:59 06:59 06:59 Intake Total 1536 1726 Output Total 2700 3400 Balance -1164 -1674 Weight 123.4 kg 124 kg Physical exam: General: This is a tall well-developed and nourished appearing white male resting in bed on bilevel Pap currently in no acute distress Heart: Regular rate and rhythm. No rubs or gallops. 2/6 systolic ejection murmur. Lungs: Clear from the anterior perspective with equal rise and fall of the chest. He remains on bilevel Pap. Abdomen: Slightly distended Extremities: No clubbing or cyanosis. Trace to 1+ edema Skin: The patient has superficial wounds on the right felix. Appear clean dry and intact. There are also some superficial sores on the joints of the right toes. Patient has dry exfoliating skin bilaterally. On the left foot he has ulceration under fourth digit. Neuro: Awake and alert. He is not oriented. On BiPAP Results Laboratory Results: 10/19/16 04:39 10/19/16 04:39 10/19/16 10/19/16 04:39 04:39 WBC 8.1 RBC 4.51 Hgb 9.7 L Hct 33.0 L MCV 73 L MCH 21.6 L MCHC 29.4 L RDW 23.0 H Plt Count 360 Seg Neutrophils % 89.9 H Lymphocytes % 5.3 L Monocytes % 4.6 Eosinophils % 0.0 Basophils % 0.2 Absolute Neutrophils 7.3 Absolute Lymphocytes 0.4 L Absolute Monocytes 0.4 Absolute Eosinophils 0.0 Absolute Basophils 0.0 Sodium 138.4 Potassium 4.0 Chloride 90 L Carbon Dioxide 39 H Anion Gap 9 BUN 53 H Creatinine 1.63 H Est GFR ( Amer) 50 L Est GFR (Non-Af Amer) 41 L Glucose 276 H Calcium 8.9 Magnesium 2.4 H 10/13/16 18:40 Blood Blood Culture - Final NO GROWTH IN 5 DAYS 10/13/16 17:47 Blood Blood Culture - Final NO GROWTH IN 5 DAYS 10/13/16 17:47 NT-Pro-B Natriuret Pep 8600 H Impressions: Chest X-Ray 10/15/16 00:00 IMPRESSION: No interval change in the chest. Assessment & Plan - Diagnosis (1) Acute respiratory failure with hypoxia and hypercapnia Plan: Etiology is multifactorial. He has underlying heart failure, COPD with likely exacerbation and CO2 retention, acute bronchitis. Continue bilevel Pap night. The patient is able to remain on O2 during the day. No wheezing was evident on exam. Continue low-dose steroid. Repeat ABG as needed. (2) Sepsis Qualifiers: Sepsis type: sepsis due to unspecified organism Qualified Code(s): A41.9 - Sepsis, unspecified organism Plan: Sirs/sepsis: Elevated white blood cell count. Resolved. Fleming cultures are so far negative. Repeat chest x-ray does not show any infiltrate. Currently on vancomycin and cefepime. (3) Acute systolic (congestive) heart failure Plan: Continue diuresis. Continue drip and change to Lasix 40 twice daily. Continue Neri catheter. Cardiology has been consulted. Echocardiogram showed EF of 30- 35%. Grade 2 diastolic failure. Chest x-ray shows no change. (4) Atrial fibrillation with rapid ventricular response Is this a current diagnosis for this admission?: YesPlan: Continue amiodarone. Patient is rate controlled. Continue warfarin (5) Cellulitis Qualifiers: Site of cellulitis of extremity: lower extremity Laterality: unspecified laterality Is this a current diagnosis for this admission?: YesPlan: Improved no erythema is present (6) Chronic renal disease, stage IV Is this a current diagnosis for this admission?: YesPlan: Stable. 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 Continue sliding scale insulin. (8) Diabetic foot ulcer Qualifiers: Diabetes mellitus type: type 2 Laterality: unspecified laterality Is this a current diagnosis for this admission?: YesPlan: Continue local wound care. His wounds appear quite clean. I do not suspect that they are the cause of his current elevation in white count. The wounds are quite shallow and do not look erythematous. There is no purulence. (9) COPD (chronic obstructive pulmonary disease) Qualifiers: COPD type: unspecified COPD Qualified Code(s): J44.9 - Chronic obstructive pulmonary disease, unspecified Is this a current diagnosis for this admission?: YesPlan: Patient certainly has been in acute exacerbation. PCO2 was greater than 90. Solu-Medrol to p.o. prednisone. Believe this will help in his recovery. (10) Encephalopathy acute Plan: Patient has been encephalopathic nearly since the beginning of his admission. I suspect he had some underlying mild dementia and that this illness has tipped things over the edge. Important that he is reoriented as much as possible and that he receives good sunlight coming through his room during the day. Since hospitalization could also be affecting his mentation in the form of hospital psychosis. He is agitated and on as needed Ativan. For been hypercapnic and hypoxemic on this visit. Will check head CT as his mentation is not clearing. - Time Time Spent with patient: 15-24 minutes
[2016-10-19] MEDS ORDERED: POLYETHYLENE GLYCOL 3350 POWDER 17 GM/1 PACKET PO PRN (12:40)
--- NOTE | 2016-10-19 13:48 | RADIOLOGY REPORT (SQ) ---
EXAM DESCRIPTION: CT HEAD WITHOUT COMPLETED DATE/TIME: 10/19/2016 1:29 pm REASON FOR STUDY: altered mental staus COMPARISON: 02/15/2016 TECHNIQUE: Axial images acquired through the brain without intravenous contrast. Images reviewed wi th bone, brain and subdural windows. Images stored on PACS. All CT scanners at this facility use dose modulation, iterative reconstruction, and/or weight based d osing when appropriate to reduce radiation dose to as low as reasonably achievable (ALARA). [facility]: Dose Right [facility]: CareDose [facility]: Dose Right [facility]: Teradose 4D [facility]: [email or web address] RADIATION DOSE: 129.22mGy. LIMITATIONS: None. FINDINGS: VENTRICLES: Prominent. CEREBRUM: No masses. No hemorrhage. No midline shift. Stable chronic infarction right frontal lobe . Additional areas of low density in the white matter most likely due to chronic micro-vascular isch emic change. No evidence for acute infarction. CEREBELLUM: No masses. No hemorrhage. No alteration of density. No evidence for acute infarction. EXTRAAXIAL SPACES: Age-related involutional change. No fluid collections. No masses. ORBITS AND GLOBE: No intra- or extraconal masses. Normal contour of globe without masses. CALVARIUM: No fracture. PARANASAL SINUSES: No fluid or mucosal thickening. SOFT TISSUES: No mass or hematoma. OTHER: No other significant finding. IMPRESSION: NO ACUTE INTRACRANIAL PROCESS. NO SIGNIFICANT CHANGE FROM PRIOR STUDY. TECHNICAL DOCUMENTATION: JOB ID: [id number] Quality ID # [id number]: Final reports with documentation of one or more dose reduction techniques (e.g., Au tomated exposure control, adjustment of the mA and/or kV according to patient size, use of iterative reconstruction technique) 2010 [employer] All Rights Reserved
[2016-10-19] MEDS: FUROSEMIDE INJ/PF 40 MG/4 ML SDV IV SCH (17:51)
[2016-10-19] MEDS: PHARMACY COMMUNICATION ORDER MC SCH (17:55)
[2016-10-19] MEDS ORDERED: FUROSEMIDE INJ/PF 20 MG/2 ML SDV IV SCH (18:00)
[2016-10-19] MEDS: VANCOMYCIN HCL 1,500 MG in DEXTROSE 5%-WATER 250 ML IV SCH (20:44)
[2016-10-19] MEDS: WARFARIN SODIUM 5 MG TABLET PO SCH (21:42)
[2016-10-20 05:02] LABS: ABSOLUTE LYMPHOCYTES (AUTO) 0.9 10^3/uL (0.5-4.7); ABSOLUTE MONOCYTES (AUTO) 1.3 10^3/uL (0.1-1.4); ABSOLUTE NEUT (AUTO) 7.9 10^3/uL (1.7-8.2); BASOPHILS % (AUTO) 0.2 % (0-2); EOSINOPHILS % (AUTO) 0.2 % (0-6); HEMOGLOBIN 10.2 g/dL (13.5-17.0); MEAN CORPUSCULAR HEMOGLOBIN 21.3 pg (27.0-33.4); MEAN CORPUSCULAR HGB CONC 28.9 g/dL (32.0-36.0); MEAN CORPUSCULAR VOLUME 74 fl (80-97); RED BLOOD COUNT 4.78 10^6/uL (4.35-5.55); RED CELL DISTRIBUTION WIDTH 23.1 % (11.5-14.0); SEGMENTED NEUTROPHILS % (AUTO) 77.6 % (42-78); WHITE BLOOD COUNT 10.2 10^3/uL (4.0-10.5)
[2016-10-20 05:13] LABS: BLOOD UREA NITROGEN 56 mg/dL (7-20); CALCIUM 9.1 mg/dL (8.4-10.2); CHLORIDE 90 mmol/L (98-107); CREATININE RESULT 1.63 mg/dL (0.52-1.25); GLUCOSE 214 mg/dL (75-110); MAGNESIUM 2.6 mg/dL (1.6-2.3); POTASSIUM 4.1 mmol/L (3.6-5.0); SODIUM 141.1 mmol/L (137-145)
[2016-10-20 05:26] LABS: ANION GAP 10 (5-19); CARBON DIOXIDE 41 mmol/L (22-30)
[2016-10-20] MEDS: LORAZEPAM INJ 2 MG/1 ML VIAL IV PRN ×2 (05:35→23:39)
[2016-10-20] MEDS: HYDRALAZINE HCL 10 MG TABLET PO SCH ×3 (05:35→21:17)
[2016-10-20 06:04] LABS: HGB HCT DIFFERENCE -4.7
[2016-10-20 06:05] LABS: HEMATOCRIT 35.3 % (37.9-51.0)
[2016-10-20 06:24] LABS: ARTERIAL BLOOD O2 SATURATION 96.6 % (94-98)
[2016-10-20] MEDS: INSULIN LISPRO 100 UNIT/ML 3 ML VIAL SUBCUT PRN ×4 (08:49→23:18)
--- NOTE | 2016-10-20 09:37 | EKG REPORT ---
SEVERITY:- ABNORMAL ECG - SINUS RHYTHM NONSPECIFIC INTRAVENTRICULAR CONDUCTION DELAY : Confirmed by: Manan Julien 20-Oct-2016 09:36:27
[2016-10-20] MEDS: IPRATROPIUM/ALBUTEROL 0.5-2.5 MG/3 ML AMPUL NEB PRN (09:38)
[2016-10-20] MEDS: AMIODARONE HCL 200 MG TABLET PO SCH ×2 (09:59→21:17)
[2016-10-20] MEDS: FUROSEMIDE INJ/PF 40 MG/4 ML SDV IV SCH ×2 (09:59→17:23)
[2016-10-20] MEDS: FAMOTIDINE 20 MG TABLET PO SCH ×2 (10:00→21:17)
[2016-10-20] MEDS ORDERED: PREDNISONE 20 MG TABLET PO SCH (10:00)
[2016-10-20] MEDS: DOCUSATE SODIUM 100 MG CAPSULE PO SCH (10:00)
[2016-10-20] MEDS: NICOTINE 21 MG/24 HR PATCH.TD24 TD SCH (10:01)
[2016-10-20] MEDS: CARVEDILOL 12.5 MG TABLET PO SCH ×2 (10:01→21:18)
[2016-10-20] MEDS: CEFTRIAXONE 1 GM/D5W RTU 1 GM/50 ML RTUPB IV SCH (10:02)
--- NOTE | 2016-10-20 14:44 | PDOC PROGRESS REPORT ---
Subjective Progress Note for:: 10/20/16 Subjective:: This is a follow-up visit for acute on chronic systolic heart failure. The patient was admitted last Thursday. Since then he has been on Lasix IV. He became acutely short of breath longterm through his stay and was changed over to 60 drip. Cardiology was consulted as well. Fortunately the patient also developed COPD exacerbation with CO2 that necessitated being placed on bilevel Pap. On this throughout the day for the first 1 or 2 days and then transition to nights only. Remarkably well with Lasix drip. Has been discontinued as of and the patient is now back on 40 mg IV twice a day will be to eventually get him on p.o. Lasix and the Neri catheter out. Unfortunately the patient has also been quite agitated while he has been here and has required restraints. This is due to his hypercarbia, but now that that is improved I suspect he has some underlying dementia made worse by his current condition. CT of the head was done just to rule out a stroke and this was negative . And ultimately is to get him into a nursing facility. No Acute events overnight. The patient apparently rested well and was calm throughout the night. He is currently resting on bilevel Pap. He denies any chest pain or worsening shortness of breath Physical Exam Vital Signs: Temp Pulse Resp BP Pulse Ox 97.6 F 72 18 179/90 H 98 10/20/16 07:23 10/20/16 09:38 10/20/16 09:38 10/20/16 07:23 10/20/16 09:38 Intake & Output 10/19/16 10/20/16 10/21/16 06:59 06:59 06:59 Intake Total 1726 287 Output Total 0551 7763 Balance -1893 -3544 Weight 124 kg 119.2 kg Physical exam: General: This is a tall well-developed and nourished appearing white male resting in bed on bilevel Pap currently in no acute distress Heart: Regular rate and rhythm. No rubs or gallops. 2/6 systolic ejection murmur. Lungs: Clear from the anterior perspective with equal rise and fall of the chest. He remains on bilevel Pap. Abdomen: Now nondistended. Extremities: No clubbing or cyanosis. Trace edema Skin: The patient has superficial wounds on the right felix. Appear clean dry and intact. There are also some superficial sores on the joints of the right toes. Patient has dry exfoliating skin bilaterally. On the left foot he has ulceration under fourth digit. Neuro: Awake and alert. He is not oriented. On BiPAP Results Laboratory Results: 10/20/16 04:07 10/20/16 04:07 10/20/16 10/20/16 10/20/16 04:07 04:07 06:00 WBC 10.2 RBC 4.78 Hgb 10.2 L Hct 35.3 L MCV 74 L MCH 21.3 L MCHC 28.9 L RDW 23.1 H Plt Count 375 Seg Neutrophils % 77.6 Lymphocytes % 9.0 L Monocytes % 13.0 Eosinophils % 0.2 Basophils % 0.2 Absolute Neutrophils 7.9 Absolute Lymphocytes 0.9 Absolute Monocytes 1.3 Absolute Eosinophils 0.0 Absolute Basophils 0.0 Carbonic Acid 1.90 H HCO3/H2CO3 Ratio 21:1 ABG pH 7.43 ABG pCO2 63.2 H ABG pO2 87.7 ABG HCO3 40.7 H ABG O2 Saturation 96.6 ABG Base Excess 14.0 FiO2 30% Sodium 141.1 Potassium 4.1 Chloride 90 L Carbon Dioxide 41 H* Anion Gap 10 BUN 56 H Creatinine 1.63 H Est GFR ( Amer) 50 L Est GFR (Non-Af Amer) 41 L Glucose 214 H Calcium 9.1 Magnesium 2.6 H 10/13/16 17:47 NT-Pro-B Natriuret Pep 8600 H Impressions: Chest X-Ray 10/15/16 00:00 IMPRESSION: No interval change in the chest. Head CT 10/19/16 00:00 IMPRESSION: NO ACUTE INTRACRANIAL PROCESS. NO SIGNIFICANT CHANGE FROM PRIOR STUDY. Assessment & Plan - Diagnosis (1) Acute respiratory failure with hypoxia and hypercapnia Plan: Etiology is multifactorial. He has underlying heart failure, COPD with likely exacerbation and CO2 retention, acute bronchitis. discontinued bilevel Pap night. The patient is able to remain on O2 during the day. No wheezing was evident on exam. Continue low-dose steroid. Repeat ABG as needed. (2) Sepsis Qualifiers: Sepsis type: sepsis due to unspecified organism Qualified Code(s): A41.9 - Sepsis, unspecified organism Plan: Sirs/sepsis: Elevated white blood cell count. Resolved. Fleming cultures are so far negative. Repeat chest x-ray does not show any infiltrate. Currently on vancomycin and cefepime. Discontinue and transition to Levaquin. (3) Acute systolic (congestive) heart failure Plan: Continue diuresis. s/p lasix drip. Continue Lasix 40 twice daily. Continue Neri catheter today and discontinue tomorrow. Cardiology has been consulted. Echocardiogram showed EF of 30-35%. Grade 2 diastolic failure. Chest x-ray shows no change. The patient has had improvement in his swelling. (4) Atrial fibrillation with rapid ventricular response Is this a current diagnosis for this admission?: YesPlan: Continue amiodarone. Patient is rate controlled. Continue warfarin (5) Cellulitis Qualifiers: Site of cellulitis of extremity: lower extremity Laterality: unspecified laterality Is this a current diagnosis for this admission?: YesPlan: Improved no erythema is present (6) Chronic renal disease, stage IV Is this a current diagnosis for this admission?: YesPlan: Stable. 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 Continue sliding scale insulin. Blood sugars remain in the 300s (8) Diabetic foot ulcer Qualifiers: Diabetes mellitus type: type 2 Laterality: unspecified laterality Is this a current diagnosis for this admission?: YesPlan: Continue local wound care. His wounds appear quite clean. I do not suspect that they are the cause of his current elevation in white count. The wounds are quite shallow and do not look erythematous. There is no purulence. (9) COPD (chronic obstructive pulmonary disease) Qualifiers: COPD type: unspecified COPD Qualified Code(s): J44.9 - Chronic obstructive pulmonary disease, unspecified Is this a current diagnosis for this admission?: YesPlan: Patient certainly has been in acute exacerbation. PCO2 was greater than 90. s/ p Solu-Medrol. Continue p.o. prednisone. Believe this will help in his recovery. Discontinue BiPAP at night. (10) Encephalopathy acute Plan: Patient has been encephalopathic nearly since the beginning of his admission. I suspect he had some underlying mild dementia and that this illness has tipped things over the edge. Important that he is reoriented as much as possible and that he receives good sunlight coming through his room during the day. Since hospitalization could also be affecting his mentation in the form of hospital psychosis. He is agitated and on as needed Ativan. For been hypercapnic and hypoxemic on this visit. CAT scan of the head was negative. - Time Time Spent with patient: 25-34 minutes - Inpatient Certification Medical Necessity: Need Close Monitoring Due to Risk of Patient Decompensation
--- NOTE | 2016-10-20 20:34 | PDOC PROGRESS REPORT ---
Subjective Progress Note for:: 10/20/16 Subjective:: Patient seems to be doing about the same and is noted to be very confused and at times agitated. Patient noted to be more lethargic today. Patient is still in restraints. At some sedation last night. Patient does not seem to be in any other significant discomfort. System review: No other significant changes Medications reviewed. Physical Exam Vital Signs: Temp Pulse Resp BP Pulse Ox 97.4 F 71 20 165/79 H 97 10/20/16 16:48 10/20/16 18:47 10/20/16 16:48 10/20/16 16:48 10/20/16 16:48 Intake & Output 10/19/16 10/20/16 10/21/16 06:59 06:59 06:59 Intake Total 1726 568 432 Output Total 3400 7685 1300 Balance -9366 -6724 -553 Weight 124 kg 119.2 kg Exam: GENERAL: well-nourished and in no acute distress. Patient is alert but not oriented to place time or person. HEAD: Atraumatic, normocephalic. EYES: Pupils equal round and reactive to light, extraocular movements intact, sclera anicteric, conjunctiva are normal. ENT: TMs normal, nares patent, oropharynx clear without exudates. Moist mucous membranes. No oral ulcerations or bleeding gums noted NECK: supple without lymphadenopathy or JVD. Trachea is central. No cervical or axillary lymphadenopathy noted. Carotids are 2+ LUNGS: Breath sounds bibasilar fine crackles at bases. No significant dullness noted. CHEST: Palpation of chest wall shows no significant chest wall tenderness. HEART: [place] [employer], No PSH, 2/6 ALEKSANDAR aortic area, 1/6 abrams systolic murmur mitral area, rubs or gallops. ABDOMEN: Soft, no significant tenderness appreciated, normoactive bowel sounds. No guarding, no rebound. No rigidity noted . No masses appreciated. EXTREMITIES: Pedal pulses are 1-2+, no calf tenderness noted, Trace + pedal edema noted. No clubbing or cyanosis. NEUROLOGICAL: Patient is alert but is not able to participate in neurological exam because of patient's current mental status PSYCH: Patient cannot participate in a neurologic and psych exam because of the patient's current mental status SKIN: No significant ecchymosis, mild superficial ulceration and some dermatitis rash noted both lower extremity. MUSCULOSKELETAL EXAM: No significant joint swelling noted. Results Laboratory Results: 10/20/16 04:07 10/20/16 04:07 10/20/16 10/20/16 10/20/16 04:07 04:07 06:00 WBC 10.2 RBC 4.78 Hgb 10.2 L Hct 35.3 L MCV 74 L MCH 21.3 L MCHC 28.9 L RDW 23.1 H Plt Count 375 Seg Neutrophils % 77.6 Lymphocytes % 9.0 L Monocytes % 13.0 Eosinophils % 0.2 Basophils % 0.2 Absolute Neutrophils 7.9 Absolute Lymphocytes 0.9 Absolute Monocytes 1.3 Absolute Eosinophils 0.0 Absolute Basophils 0.0 Carbonic Acid 1.90 H HCO3/H2CO3 Ratio 21:1 ABG pH 7.43 ABG pCO2 63.2 H ABG pO2 87.7 ABG HCO3 40.7 H ABG O2 Saturation 96.6 ABG Base Excess 14.0 FiO2 30% Sodium 141.1 Potassium 4.1 Chloride 90 L Carbon Dioxide 41 H* Anion Gap 10 BUN 56 H Creatinine 1.63 H Est GFR ( Amer) 50 L Est GFR (Non-Af Amer) 41 L Glucose 214 H Calcium 9.1 Magnesium 2.6 H 10/13/16 17:47 NT-Pro-B Natriuret Pep 8600 H Impressions: Chest X-Ray 10/15/16 00:00 IMPRESSION: No interval change in the chest. Head CT 10/19/16 00:00 IMPRESSION: NO ACUTE INTRACRANIAL PROCESS. NO SIGNIFICANT CHANGE FROM PRIOR STUDY. Assessment & Plan - Diagnosis (1) Acute on chronic systolic (congestive) heart failure Is this a current diagnosis for this admission?: Yes (2) Acute and chronic respiratory failure ([id number]) Qualifiers: Respiratory failure complication: hypoxia and hypercapnia Qualified Code(s): J96.21 - Acute and chronic respiratory failure with hypoxia Is this a current diagnosis for this admission?: Yes (3) CKD (chronic kidney disease) stage 3, GFR 30-59 ml/min Is this a current diagnosis for this admission?: Yes (4) CAD (coronary artery disease) Qualifiers: Coronary Disease-Associated Artery/Lesion type: unspecified vessel or lesion type Associated angina: without angina Is this a current diagnosis for this admission?: Yes (5) COPD (chronic obstructive pulmonary disease) Qualifiers: COPD type: unspecified COPD Qualified Code(s): J44.9 - Chronic obstructive pulmonary disease, unspecified Is this a current diagnosis for this admission?: Yes (6) Encephalopathy Is this a current diagnosis for this admission?: Yes (7) Hypertension Qualifiers: Hypertension type: essential hypertension Qualified Code(s): I10 - Essential (primary) hypertension Is this a current diagnosis for this admission?: Yes (8) Paroxysmal atrial fibrillation Is this a current diagnosis for this admission?: Yes - Notes Notes: Acute on chronic systolic heart failure: Patient seems clinically improved. Currently seems fairly compensated. Patient generally stable from cardiac standpoint. Acute on chronic respiratory failure: Patient noted to have comfortable breathing. This has improved. Continue with oxygen supplementation and intermittent positive pressure ventilation, bronchodilator therapy etc. Chronic kidney disease: Currently stable. Continue to monitor renal functions. Coronary artery disease: Symptomatically stable without any active angina or significant dysrhythmia. COPD: Continue current management plans. Encephalopathy: Currently still a significant problem but possibly related to underlying dementia with metabolic problems worsening it. CT scan was negative for any significant acute bleed etc. Hypertension: Currently under satisfactory control. Blood pressure goal should be 135/85 or less in this gentleman. Atrial fibrillation, paroxysmal: Patient currently maintaining sinus rhythm. Twelve-lead EKG shows patient maintaining sinus rhythm, no acute ST-T wave changes noted. Continue chronic Coumadin therapy. Patient is generally stable from cardiac standpoint. Will sign off. - Time Time with patient: 15-25 minutes - CODE STATUS : was discussed, patient remains DO NOT RESUSCITATE. Surrogate decision-maker unchanged. Multiple medical problems were addressed. More than 50% of the time spent coordinating care, discussing management plans with involved caregivers. Management plans discussed with involved personnels. Medical decision making was of moderate to high complexity, patient's has multiple comorbidities. Medications reviewed and adjusted accordingly: Yes
[2016-10-20] MEDS: WARFARIN SODIUM 5 MG TABLET PO SCH (21:17)
[2016-10-21] MEDS: HYDRALAZINE HCL 10 MG TABLET PO SCH ×3 (05:20→21:28)
[2016-10-21 05:46] LABS: BLOOD UREA NITROGEN 56 mg/dL (7-20); CHLORIDE 92 mmol/L (98-107); CREATININE RESULT 1.67 mg/dL (0.52-1.25); GLUCOSE 188 mg/dL (75-110); POTASSIUM 3.7 mmol/L (3.6-5.0); SODIUM 141.5 mmol/L (137-145)
[2016-10-21 06:15] LABS: ABSOLUTE EOSINOPHILS # (AUTO) 0.1 10^3/uL (0.0-0.6); ABSOLUTE LYMPHOCYTES (AUTO) 1.1 10^3/uL (0.5-4.7); ABSOLUTE MONOCYTES (AUTO) 1.2 10^3/uL (0.1-1.4); ABSOLUTE NEUT (AUTO) 6.4 10^3/uL (1.7-8.2); BASOPHILS % (AUTO) 0.4 % (0-2); EOSINOPHILS % (AUTO) 0.7 % (0-6); HEMATOCRIT 36.6 % (37.9-51.0); HEMOGLOBIN 10.6 g/dL (13.5-17.0); MEAN CORPUSCULAR HEMOGLOBIN 21.4 pg (27.0-33.4); MEAN CORPUSCULAR HGB CONC 29.1 g/dL (32.0-36.0); MEAN CORPUSCULAR VOLUME 74 fl (80-97); MONOCYTES % (AUTO) 14.1 % (3-13); RED BLOOD COUNT 4.97 10^6/uL (4.35-5.55); SEGMENTED NEUTROPHILS % (AUTO) 72.8 % (42-78); WHITE BLOOD COUNT 8.8 10^3/uL (4.0-10.5)
[2016-10-21 06:16] LABS: HGB HCT DIFFERENCE -4.8
[2016-10-21 07:42] LABS: ANION GAP 11 (5-19)
[2016-10-21 07:43] LABS: CARBON DIOXIDE 39 mmol/L (22-30)
[2016-10-21] MEDS: INSULIN LISPRO 100 UNIT/ML 3 ML VIAL SUBCUT PRN ×4 (07:51→23:49)
--- NOTE | 2016-10-21 11:43 | PDOC PROGRESS REPORT ---
Subjective Progress Note for:: 10/21/16 Subjective:: reason for visit: heart failure, met encephalopathy, COPD exac, acute hypercapneic and hypoxic resp failure hospital course: per my H/P - LEOPOLDO SANCHEZ is a 76 year old male presents from dr back' office where he was being seen in followup of his CKD stage 4 and found to be more anemic than usual, worsening edema c/w anasarca, cough productive of green phlegm and worsening leg wounds from venous stasis and known mild to mod arterial disease. Hg found 7.8 down from 11 just a couple months ago without any clinical apparent bleeding at home or on exam by dr back. He is on coumadin for chronic afib. Scr at his baseline around 2.0. COPD is worse with increasing cough productive of green phlegm but no fever or chills, no increase in his home O2 at 3L/min or increased use of his home neb machine. Leg wounds are worsening and appearing spontaneously as his edema worsens and now tracks up to umbilicus. given this constellation of worsening conditions, we were asked to direct admit for further eval and management. per other'snotes: "This is a follow-up visit for acute on chronic systolic heart failure. The patient was admitted last Thursday. Since then he has been on Lasix IV. He became acutely short of breath [facility] through his stay and was changed over to 60 drip. Cardiology was consulted as well. Fortunately the patient also developed COPD exacerbation with CO2 that necessitated being placed on bilevel Pap. On this throughout the day for the first 1 or 2 days and then transition to nights only. Remarkably well with Lasix drip. Has been discontinued as of 10/19/2016 and the patient is now back on 40 mg IV twice a day will be to eventually get him on p.o. Lasix and the Alvarenga catheter out. Unfortunately the patient has also been quite agitated while he has been here and has required restraints. This is due to his hypercarbia, but now that that is improved I suspect he has some underlying dementia made worse by his current condition. CT of the head was done just to rule out a stroke and this was negative . 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 He doesn't participate in his care. alvarenga and telemetry remain in place, good uop and no significant ectopy on review of the monitor for over 72hrs. ROS: unobtainable due to pt's mental state; he has no recollection of place or time or ever meeting me before. Physical Exam Vital Signs: Temp Pulse Resp BP Pulse Ox 98.0 F 75 20 159/94 H 91 L 10/21/16 07:22 10/21/16 07:22 10/21/16 07:22 10/21/16 07:22 10/21/16 07:22 Intake & Output 10/20/16 10/21/16 10/22/16 06:59 06:59 06:59 Intake Total 568 448 Output Total 3175 2800 Balance -2607 -2352 Weight 119.2 kg 119.4 kg General appearance: PRESENT: no acute distress - singing loudly,will only redirect momentarily, well-developed, well-nourished Head exam: PRESENT: atraumatic, normocephalic Eye exam: PRESENT: EOMI. ABSENT: conjunctival injection, scleral icterus Mouth exam: PRESENT: dry mucosa, neck supple Neck exam: ABSENT: tenderness, tracheal deviation Respiratory exam: PRESENT: crackles - bases. ABSENT: accessory muscle use Cardiovascular exam: PRESENT: RRR - NSR on monitor, systolic murmur - 2/6 as before Pulses: PRESENT: normal radial pulses, +1 pedal pulses bilateral GI/Abdominal exam: PRESENT: normal bowel sounds, soft. ABSENT: tenderness Gentrourinary exam: PRESENT: indwelling catheter. ABSENT: scrotal swelling Extremities exam: PRESENT: +1 edema. ABSENT: calf tenderness Musculoskeletal exam: PRESENT: full ROM Neurological exam: PRESENT: alert, awake, reflexes normal - patellar. ABSENT: oriented to person, oriented to place, oriented to time, oriented to situation, aphasic Psychiatric exam: PRESENT: unusual affect - inappropriate laughter, outbursts of singing, brief, momentary physical and verbal angry outbursts Focused psych exam: PRESENT: delusional, restlessness Skin exam: PRESENT: rash - superficial wounds on both legs as described previously, warm Results Laboratory Results: 10/21/16 04:35 10/21/16 04:35 10/21/16 10/21/16 04:35 04:35 WBC 8.8 RBC 4.97 Hgb 10.6 L Hct 36.6 L MCV 74 L MCH 21.4 L MCHC 29.1 L RDW 23.0 H Plt Count 349 Seg Neutrophils % 72.8 Lymphocytes % 12.0 L Monocytes % 14.1 H Eosinophils % 0.7 Basophils % 0.4 Absolute Neutrophils 6.4 Absolute Lymphocytes 1.1 Absolute Monocytes 1.2 Absolute Eosinophils 0.1 Absolute Basophils 0.0 Sodium 141.5 Potassium 3.7 Chloride 92 L Carbon Dioxide 39 H Anion Gap 11 BUN 56 H Creatinine 1.67 H Est GFR ( Amer) 49 L Est GFR (Non-Af Amer) 40 L Glucose 188 H Calcium 9.0 10/13/16 17:47 NT-Pro-B Natriuret Pep 8600 H Impressions: Head CT 10/19/16 00:00 IMPRESSION: NO ACUTE INTRACRANIAL PROCESS. NO SIGNIFICANT CHANGE FROM PRIOR STUDY. Status: Imported from PACS Assessment & Plan - Diagnosis (1) Encephalopathy acute Is this a current diagnosis for this admission?: YesPlan: unchanged, certainly no better and failing conservative, non-pharm interventions ; unclear etiology but likely multifactorial with component of probable vascular dementia complicated by acute illness with sepsis due to cellulitis from diabetic foot ulcer, acute COPD exac with hypercarbia and hypercapnea, metabolic alkalosis in response to the above complicated by contraction due to diuresis of CHF and azotemia from his CKD stage 4 as most likely culprits. he is failing to improve with current therapy, will try to minimize physical restraints including alvarenga catheter, telemetry monitoring and use of wrist of restraints as his condition will allow. initiate olanzapine at 2.5mg daily and titrate to 5mg bid as his condition warrants, this appears to be the least likely agent to interact with his other meds or cause further harm. (2) Acute and chronic respiratory failure ([id number]) Qualifiers: Respiratory failure complication: hypoxia and hypercapnia Qualified Code(s): J96.21 - Acute and chronic respiratory failure with hypoxia Is this a current diagnosis for this admission?: YesPlan: improved but not back to baseline, evidenced by persistently elevated bicarb on renal panel; wean off BiPAP as lesvia, back to home regimen of 3L/min O2 via [place] as he will allow (3) Paroxysmal atrial fibrillation Is this a current diagnosis for this admission?: YesPlan: rate/rhythm controlled on amiodarone (4) Anemia Qualifiers: Anemia type: unspecified type Qualified Code(s): D64.9 - Anemia, unspecified Is this a current diagnosis for this admission?: YesPlan: back to baseline after 2U PRBCs on admission (5) Acute bronchitis Qualifiers: Bronchitis organism: unspecified organism Qualified Code(s): J20.9 - Acute bronchitis, unspecified Is this a current diagnosis for this admission?: YesPlan: improved and likely back to baseline; completed a course of abx, will wean steroids off to remove as confounder regarding his encephalopathy. (6) Acute exacerbation of CHF (congestive heart failure) Qualifiers: Congestive heart failure type: systolic Qualified Code(s): I50.23 - Acute on chronic systolic (congestive) heart failure Is this a current diagnosis for this admission?: YesPlan: resolved. appears to be back to baseline/compensated (7) CAD (coronary artery disease) Qualifiers: Coronary Disease-Associated Artery/Lesion type: unspecified vessel or lesion type Associated angina: without angina Is this a current diagnosis for this admission?: Yes (8) COPD (chronic obstructive pulmonary disease) Qualifiers: COPD type: unspecified COPD Qualified Code(s): J44.9 - Chronic obstructive pulmonary disease, unspecified Is this a current diagnosis for this admission?: Yes (9) Cellulitis Qualifiers: Site of cellulitis of extremity: lower extremity Laterality: unspecified laterality Is this a current diagnosis for this admission?: YesPlan: markedly improved; continue topical care (10) Chronic renal disease, stage IV Is this a current diagnosis for this admission?: YesPlan: improved but no back to baseline regarding azotemia, worsened with diuresis and likely contributing to his encephalopathy (11) Diabetes mellitus Qualifiers: Diabetes mellitus type: type 2 Diabetes mellitus complication status: with circulatory complication Diabetes mellitus complication detail: with other circulatory complications Diabetes mellitus penitentiary insulin use: unspecified penitentiary insulin use status Qualified Code(s): E11.59 - Type 2 diabetes mellitus with other circulatory complications Is this a current diagnosis for this admission?: Yes (12) Diabetic foot ulcer Qualifiers: Diabetes mellitus type: type 2 Laterality: unspecified laterality Is this a current diagnosis for this admission?: Yes (13) Tobacco abuse Is this a current diagnosis for this admission?: Yes (14) Do not resuscitate Is this a current diagnosis for this admission?: Yes - Time Time Spent with patient: 35 or more minutes Medications reviewed and adjusted accordingly: Yes Anticipated discharge: SNF - awaiting stabilization of his mental state prior to transfer to SNF for ongoing care
[2016-10-21] MEDS: FUROSEMIDE INJ/PF 40 MG/4 ML SDV IV SCH ×2 (11:47→17:59)
[2016-10-21] MEDS: AMIODARONE HCL 200 MG TABLET PO SCH ×2 (11:48→21:28)
[2016-10-21] MEDS: DOCUSATE SODIUM 100 MG CAPSULE PO SCH (11:48)
[2016-10-21] MEDS: PREDNISONE 20 MG TABLET PO SCH (11:48)
[2016-10-21] MEDS: FAMOTIDINE 20 MG TABLET PO SCH ×2 (11:48→21:28)
[2016-10-21] MEDS: CARVEDILOL 12.5 MG TABLET PO SCH ×2 (11:48→21:28)
[2016-10-21] MEDS: NICOTINE 21 MG/24 HR PATCH.TD24 TD SCH (11:49)
[2016-10-21] MEDS ORDERED: OLANZAPINE 2.5 MG TABLET PO ONE (12:00)
[2016-10-21] MEDS: WARFARIN SODIUM 5 MG TABLET PO SCH (21:28)
[2016-10-21] MEDS: LORAZEPAM INJ 2 MG/1 ML VIAL IV PRN (23:48)
[2016-10-22 05:11] LABS: ABSOLUTE BASOPHILS # (AUTO) 0.1 10^3/uL (0.0-0.2); ABSOLUTE EOSINOPHILS # (AUTO) 0.1 10^3/uL (0.0-0.6); ABSOLUTE LYMPHOCYTES (AUTO) 1.1 10^3/uL (0.5-4.7); ABSOLUTE MONOCYTES (AUTO) 1.2 10^3/uL (0.1-1.4); BASOPHILS % (AUTO) 0.6 % (0-2); EOSINOPHILS % (AUTO) 0.9 % (0-6); HEMATOCRIT 37.4 % (37.9-51.0); HEMOGLOBIN 11.1 g/dL (13.5-17.0); LYMPHOCYTES % (AUTO) 11.9 % (13-45); MEAN CORPUSCULAR HEMOGLOBIN 21.6 pg (27.0-33.4); MEAN CORPUSCULAR HGB CONC 29.6 g/dL (32.0-36.0); MEAN CORPUSCULAR VOLUME 73 fl (80-97); MONOCYTES % (AUTO) 12.5 % (3-13); RED BLOOD COUNT 5.15 10^6/uL (4.35-5.55); RED CELL DISTRIBUTION WIDTH 23.2 % (11.5-14.0); SEGMENTED NEUTROPHILS % (AUTO) 74.1 % (42-78); WHITE BLOOD COUNT 9.4 10^3/uL (4.0-10.5)
[2016-10-22 05:15] LABS: BLOOD UREA NITROGEN 61 mg/dL (7-20); CALCIUM 9.3 mg/dL (8.4-10.2); CHLORIDE 95 mmol/L (98-107); CREATININE RESULT 1.81 mg/dL (0.52-1.25); GLUCOSE 224 mg/dL (75-110); HGB HCT DIFFERENCE -4.1; POTASSIUM 3.6 mmol/L (3.6-5.0); SODIUM 145.7 mmol/L (137-145)
[2016-10-22 05:18] LABS: ANION GAP 11 (5-19)
[2016-10-22 05:26] LABS: CARBON DIOXIDE 40 mmol/L (22-30)
[2016-10-22] MEDS: HYDRALAZINE HCL 10 MG TABLET PO SCH ×3 (05:33→21:41)
[2016-10-22] MEDS: INSULIN LISPRO 100 UNIT/ML 3 ML VIAL SUBCUT PRN ×4 (07:28→21:54)
[2016-10-22] MEDS: FAMOTIDINE 20 MG TABLET PO SCH ×2 (08:37→21:41)
[2016-10-22] MEDS: CARVEDILOL 12.5 MG TABLET PO SCH ×2 (08:37→21:40)
[2016-10-22] MEDS: DOCUSATE SODIUM 100 MG CAPSULE PO SCH (08:37)
[2016-10-22] MEDS: NICOTINE 21 MG/24 HR PATCH.TD24 TD SCH (08:38)
[2016-10-22] MEDS: AMIODARONE HCL 200 MG TABLET PO SCH ×2 (08:38→21:41)
[2016-10-22] MEDS: FUROSEMIDE INJ/PF 40 MG/4 ML SDV IV SCH (08:38)
[2016-10-22] MEDS: PREDNISONE 20 MG TABLET PO SCH (08:38)
[2016-10-22] MEDS ORDERED: OLANZAPINE 2.5 MG TABLET PO SCH (10:00)
[2016-10-22] MEDS ORDERED: FUROSEMIDE 40 MG TABLET PO SCH (10:00)
--- NOTE | 2016-10-22 11:08 | PDOC PROGRESS REPORT ---
Subjective Progress Note for:: 10/22/16 Subjective:: reason for visit: heart failure, met encephalopathy, COPD exac, acute hypercapneic and hypoxic resp failure hospital course: per my H/P - LEOPOLDO SANCHEZ is a 76 year old male presents from dr back' office where he was being seen in followup of his CKD stage 4 and found to be more anemic than usual, worsening edema c/w anasarca, cough productive of green phlegm and worsening leg wounds from venous stasis and known mild to mod arterial disease. Hg found 7.8 down from 11 just a couple months ago without any clinical apparent bleeding at home or on exam by dr back. He is on coumadin for chronic afib. Scr at his baseline around 2.0. COPD is worse with increasing cough productive of green phlegm but no fever or chills, no increase in his home O2 at 3L/min or increased use of his home neb machine. Leg wounds are worsening and appearing spontaneously as his edema worsens and now tracks up to umbilicus. given this constellation of worsening conditions, we were asked to direct admit for further eval and management. per other'snotes: "This is a follow-up visit for acute on chronic systolic heart failure. The patient was admitted last Thursday. Since then he has been on Lasix IV. He became acutely short of breath nursing home through his stay and was changed over to 60 drip. Cardiology was consulted as well. Fortunately the patient also developed COPD exacerbation with CO2 that necessitated being placed on bilevel Pap. On this throughout the day for the first 1 or 2 days and then transition to nights only. Remarkably well with Lasix drip. Has been discontinued as of 10/19/2016 and the patient is now back on 40 mg IV twice a day will be to eventually get him on p.o. Lasix and the Alvarenga catheter out. Unfortunately the patient has also been quite agitated while he has been here and has required restraints. This is due to his hypercarbia, but now that that is improved I suspect he has some underlying dementia made worse by his current condition. CT of the head was done just to rule out a stroke and this was negative . 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 He doesn't participate in his care. alvarenga and telemetry removed. remains in soft restraints, no longer singing or crying out loud, at least during my visit. ROS: unobtainable due to pt's mental state; he has no recollection of place or time or ever meeting me before. speech is clear but thoughts are random and he is easily agitated or frustrated when he can't answer my questions. wants nothing to do with a physical exam, very limited Physical Exam Vital Signs: Temp Pulse Resp BP Pulse Ox 98.0 F 72 19 170/75 H 95 10/22/16 07:35 10/22/16 07:35 10/22/16 07:35 10/22/16 07:35 10/22/16 07:35 Intake & Output 10/21/16 10/22/16 10/23/16 06:59 06:59 06:59 Intake Total 448 549 Output Total 2800 400 Balance -2352 149 Weight 119.4 kg 119.4 kg General appearance: PRESENT: no acute distress, well-developed, well-nourished. ABSENT: cooperative Head exam: PRESENT: atraumatic, normocephalic Eye exam: PRESENT: scleral icterus. ABSENT: conjunctival injection Mouth exam: PRESENT: dry mucosa Respiratory exam: PRESENT: crackles - coarse, R>L. ABSENT: accessory muscle use , rhonchi, wheezes Cardiovascular exam: PRESENT: RRR. ABSENT: systolic murmur GI/Abdominal exam: PRESENT: normal bowel sounds, soft Extremities exam: PRESENT: pedal edema - trace at the ankles Neurological exam: PRESENT: alert, altered, awake, oriented to person - only Focused psych exam: PRESENT: delusional, restlessness Skin exam: PRESENT: dry, warm Results Laboratory Results: 10/22/16 04:33 10/22/16 04:33 10/22/16 10/22/16 04:33 04:33 WBC 9.4 RBC 5.15 Hgb 11.1 L Hct 37.4 L MCV 73 L MCH 21.6 L MCHC 29.6 L RDW 23.2 H Plt Count 386 Seg Neutrophils % 74.1 Lymphocytes % 11.9 L Monocytes % 12.5 Eosinophils % 0.9 Basophils % 0.6 Absolute Neutrophils 7.0 Absolute Lymphocytes 1.1 Absolute Monocytes 1.2 Absolute Eosinophils 0.1 Absolute Basophils 0.1 Sodium 145.7 H Potassium 3.6 Chloride 95 L Carbon Dioxide 40 H* Anion Gap 11 BUN 61 H Creatinine 1.81 H Est GFR ( Amer) 44 L Est GFR (Non-Af Amer) 37 L Glucose 224 H Calcium 9.3 10/13/16 17:47 NT-Pro-B Natriuret Pep 8600 H Impressions: Chest X-Ray 10/15/16 00:00 IMPRESSION: No interval change in the chest. Head CT 10/19/16 00:00 IMPRESSION: NO ACUTE INTRACRANIAL PROCESS. NO SIGNIFICANT CHANGE FROM PRIOR STUDY. Assessment & Plan - Diagnosis (1) Encephalopathy acute Is this a current diagnosis for this admission?: YesPlan: unchanged, certainly no better and failing conservative, non-pharm interventions ; unclear etiology but likely multifactorial with component of probable vascular dementia complicated by acute illness with sepsis due to cellulitis from diabetic foot ulcer, acute COPD exac with hypercarbia and hypercapnea, metabolic alkalosis in response to the above complicated by contraction due to diuresis of CHF and azotemia from his CKD stage 4 as most likely culprits. he is failing to improve with current therapy, will try to minimize physical restraints including alvarenga catheter, telemetry monitoring and use of wrist of restraints as his condition will allow. increase olanzapine to 5mg bid as his condition warrants, this appears to be the least likely agent to interact with his other meds or cause further harm. (2) Acute and chronic respiratory failure ([id number]) Qualifiers: Respiratory failure complication: hypoxia and hypercapnia Qualified Code(s): J96.21 - Acute and chronic respiratory failure with hypoxia Is this a current diagnosis for this admission?: YesPlan: improved but not back to baseline, evidenced by persistently elevated bicarb on renal panel, ck CXR; wean off BiPAP as lesvia, back to home regimen of 3L/min O2 via NC as he will allow (3) Paroxysmal atrial fibrillation Is this a current diagnosis for this admission?: Yes (4) Anemia Qualifiers: Anemia type: unspecified type Qualified Code(s): D64.9 - Anemia, unspecified Is this a current diagnosis for this admission?: Yes (5) Acute bronchitis Qualifiers: Bronchitis organism: unspecified organism Qualified Code(s): J20.9 - Acute bronchitis, unspecified Is this a current diagnosis for this admission?: Yes (6) Acute exacerbation of CHF (congestive heart failure) Qualifiers: Congestive heart failure type: systolic Qualified Code(s): I50.23 - Acute on chronic systolic (congestive) heart failure Is this a current diagnosis for this admission?: Yes (7) CAD (coronary artery disease) Qualifiers: Coronary Disease-Associated Artery/Lesion type: unspecified vessel or lesion type Associated angina: without angina Is this a current diagnosis for this admission?: Yes (8) COPD (chronic obstructive pulmonary disease) Qualifiers: COPD type: unspecified COPD Qualified Code(s): J44.9 - Chronic obstructive pulmonary disease, unspecified Is this a current diagnosis for this admission?: Yes (9) Cellulitis Qualifiers: Site of cellulitis of extremity: lower extremity Laterality: unspecified laterality Is this a current diagnosis for this admission?: Yes (10) Chronic renal disease, stage IV Is this a current diagnosis for this admission?: Yes (11) Diabetes mellitus Qualifiers: Diabetes mellitus type: type 2 Diabetes mellitus complication status: with circulatory complication Diabetes mellitus complication detail: with other circulatory complications 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 operator insulin use status Qualified Code(s): E11.59 - Type 2 diabetes mellitus with other circulatory complications Is this a current diagnosis for this admission?: Yes (12) Diabetic foot ulcer Qualifiers: Diabetes mellitus type: type 2 Laterality: unspecified laterality Is this a current diagnosis for this admission?: Yes (13) Tobacco abuse Is this a current diagnosis for this admission?: Yes (14) Do not resuscitate Is this a current diagnosis for this admission?: Yes - Time Time Spent with patient: 25-34 minutes Medications reviewed and adjusted accordingly: Yes Anticipated discharge: SNF Within: within 48 hours
[2016-10-22] MEDS: OLANZAPINE 2.5 MG TABLET PO SCH ×2 (11:28→17:31)
--- NOTE | 2016-10-22 11:50 | RADIOLOGY REPORT (SQ) ---
EXAM DESCRIPTION: CHEST SINGLE VIEW COMPLETED DATE/TIME: 10/22/2016 11:38 am REASON FOR STUDY: hypoxia, confusion COMPARISON: 10/15/2016 EXAM PARAMETERS: NUMBER OF VIEWS: One view. TECHNIQUE: Single frontal radiographic view of the chest acquired. RADIATION DOSE: NA LIMITATIONS: None. FINDINGS: LUNGS AND PLEURA: Airspace opacity projects at the right lung base. No other focal opacit ies identified. No significant effusion. No pneumothorax. MEDIASTINUM AND HILAR STRUCTURES: No masses. Contour normal. HEART AND VASCULAR STRUCTURES: Cardiac size is stable. No pulmonary vascular can't BONES: No acute findings. HARDWARE: None in the chest. OTHER: No other significant finding. IMPRESSION: Airspace opacity in the right lung base likely representing atelectasis or infiltrate. Correlate clinically. TECHNICAL DOCUMENTATION: JOB ID: [id number]
[2016-10-22] MEDS ORDERED: NORMAL SALINE 1000 ML 1,000 ML IV PRN (15:39)
--- NOTE | 2016-10-22 16:12 | PDOC PROGRESS REPORT ---
Subjective Progress Note for:: 10/22/16 Subjective:: Patient was seen this afternoon. His is at his bedside. Patient has been having altered mental status for the last week or so.Multifactorial and agree with assessment done by Dr. Sutherland in his notes.Discussed with his and the treating nurse. Patient is more awake and responsive today.Still confused though.Poor intake therefore. He is not keeping his BiPAP as been ordered because of his altered mental status.Patient denies any history of chest pain shortness of breath.Denies any headaches fever chills. Physical Exam Vital Signs: Temp Pulse Resp BP Pulse Ox 97.5 F 70 20 159/71 H 95 10/22/16 12:18 10/22/16 12:18 10/22/16 12:18 10/22/16 12:18 10/22/16 12:18 Intake & Output 10/21/16 10/22/16 10/23/16 06:59 06:59 06:59 Intake Total 448 549 358 Output Total 2800 400 Balance -2352 149 358 Weight 119.4 kg 119.4 kg General appearance: PRESENT: no acute distress, disheveled Exam: Mildly lethargic with intermittent confusional state. However he is able to have lucid intervals where he will talk directly and answers appropriately to questions. Respiratory exam: PRESENT: clear to auscultation zaki. ABSENT: crackles, rhonchi Cardiovascular exam: PRESENT: +S1, +S2, systolic murmur GI/Abdominal exam: PRESENT: normal bowel sounds, soft. ABSENT: diminished bowel sounds, distended, organomegaly, tenderness Extremities exam: ABSENT: pedal edema Neurological exam: PRESENT: altered, oriented to person Skin exam: PRESENT: dry. ABSENT: mottled, rash Results Laboratory Results: 10/22/16 04:33 10/22/16 04:33 10/22/16 10/22/16 04:33 04:33 WBC 9.4 RBC 5.15 Hgb 11.1 L Hct 37.4 L MCV 73 L MCH 21.6 L MCHC 29.6 L RDW 23.2 H Plt Count 386 Seg Neutrophils % 74.1 Lymphocytes % 11.9 L Monocytes % 12.5 Eosinophils % 0.9 Basophils % 0.6 Absolute Neutrophils 7.0 Absolute Lymphocytes 1.1 Absolute Monocytes 1.2 Absolute Eosinophils 0.1 Absolute Basophils 0.1 Sodium 145.7 H Potassium 3.6 Chloride 95 L Carbon Dioxide 40 H* Anion Gap 11 BUN 61 H Creatinine 1.81 H Est GFR ( Amer) 44 L Est GFR (Non-Af Amer) 37 L Glucose 224 H Calcium 9.3 10/13/16 17:47 NT-Pro-B Natriuret Pep 8600 H Impressions: Head CT 10/19/16 00:00 IMPRESSION: NO ACUTE INTRACRANIAL PROCESS. NO SIGNIFICANT CHANGE FROM PRIOR STUDY. Chest X-Ray 10/22/16 00:00 IMPRESSION: Airspace opacity in the right lung base likely representing atelectasis or infiltrate. Correlate clinically. Assessment & Plan - Diagnosis (1) Acute bronchitis Qualifiers: Bronchitis organism: unspecified organism Qualified Code(s): J20.9 - Acute bronchitis, unspecified Is this a current diagnosis for this admission?: Yes (2) Anemia Qualifiers: Anemia type: unspecified type Qualified Code(s): D64.9 - Anemia, unspecified Is this a current diagnosis for this admission?: Yes (3) Acute exacerbation of CHF (congestive heart failure) Qualifiers: Congestive heart failure type: systolic Qualified Code(s): I50.23 - Acute on chronic systolic (congestive) heart failure Is this a current diagnosis for this admission?: YesPlan: Resolved. Overdiuresis. We will hold the Lasix for the moment for the next couple of days and then gently diurese him given his clinical status. Discussed with Dr. Sutherland/hospitalist. (4) Chronic renal disease, stage IV Is this a current diagnosis for this admission?: YesPlan: Stable. However he is alkalotic which is multi-factorial. Will hold diuretics for now and gently diurese him and see the response. 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 (8) Encephalopathy Is this a current diagnosis for this admission?: YesPlan: Improving. (9) Metabolic alkalosis Plan: As mentioned earlier I am going to hold the Lasix for couple of days and start him on gentle diuresis.Patient is got compensated heart failure and has been over diuresed.
[2016-10-22] MEDS: LORAZEPAM INJ 2 MG/1 ML VIAL IV PRN ×2 (16:27→22:28)
[2016-10-22] MEDS: MORPHINE SULFATE 10 MG/ML INJ IV PRN (21:37)
[2016-10-22] MEDS: WARFARIN SODIUM 5 MG TABLET PO SCH (21:41)
[2016-10-23] MEDS: MORPHINE SULFATE 10 MG/ML INJ IV PRN ×2 (03:56→21:27)
[2016-10-23] MEDS: LORAZEPAM INJ 2 MG/1 ML VIAL IV PRN ×4 (04:27→23:18)
[2016-10-23] MEDS: HYDRALAZINE HCL 10 MG TABLET PO SCH ×3 (05:05→21:46)
[2016-10-23 05:52] LABS: ABSOLUTE BASOPHILS # (AUTO) 0.1 10^3/uL (0.0-0.2); ABSOLUTE EOSINOPHILS # (AUTO) 0.2 10^3/uL (0.0-0.6); ABSOLUTE LYMPHOCYTES (AUTO) 1.3 10^3/uL (0.5-4.7); ABSOLUTE NEUT (AUTO) 7.7 10^3/uL (1.7-8.2); BASOPHILS % (AUTO) 0.5 % (0-2); EOSINOPHILS % (AUTO) 2.1 % (0-6); HEMATOCRIT 41.4 % (37.9-51.0); HEMOGLOBIN 11.9 g/dL (13.5-17.0); MEAN CORPUSCULAR HEMOGLOBIN 21.2 pg (27.0-33.4); MEAN CORPUSCULAR HGB CONC 28.6 g/dL (32.0-36.0); MEAN CORPUSCULAR VOLUME 74 fl (80-97); RED CELL DISTRIBUTION WIDTH 23.3 % (11.5-14.0); SEGMENTED NEUTROPHILS % (AUTO) 74.4 % (42-78); WHITE BLOOD COUNT 10.4 10^3/uL (4.0-10.5)
[2016-10-23 05:54] LABS: PROTHROMBIN TIME 31.3 SEC (11.4-15.4)
[2016-10-23 05:58] LABS: BLOOD UREA NITROGEN 58 mg/dL (7-20); CALCIUM 9.6 mg/dL (8.4-10.2); CHLORIDE 98 mmol/L (98-107); CREATININE RESULT 2.05 mg/dL (0.52-1.25); GLUCOSE 231 mg/dL (75-110); MAGNESIUM 2.8 mg/dL (1.6-2.3); POTASSIUM 4.2 mmol/L (3.6-5.0); SODIUM 148.8 mmol/L (137-145)
[2016-10-23 06:08] LABS: ANION GAP 12 (5-19)
[2016-10-23 06:14] LABS: CARBON DIOXIDE 39 mmol/L (22-30)
[2016-10-23 06:17] LABS: HGB HCT DIFFERENCE -5.7
[2016-10-23] MEDS: INSULIN LISPRO 100 UNIT/ML 3 ML VIAL SUBCUT PRN ×3 (06:34→22:44)
[2016-10-23] MEDS: NICOTINE 21 MG/24 HR PATCH.TD24 TD SCH (09:31)
[2016-10-23] MEDS: PREDNISONE 20 MG TABLET PO SCH (09:31)
[2016-10-23] MEDS: FAMOTIDINE 20 MG TABLET PO SCH ×2 (09:31→21:46)
[2016-10-23] MEDS: OLANZAPINE 2.5 MG TABLET PO SCH ×2 (09:31→17:04)
[2016-10-23] MEDS: CARVEDILOL 12.5 MG TABLET PO SCH ×2 (09:31→21:46)
[2016-10-23] MEDS: AMIODARONE HCL 200 MG TABLET PO SCH ×2 (09:31→21:46)
[2016-10-23] MEDS: DOCUSATE SODIUM 100 MG CAPSULE PO SCH (09:31)
--- NOTE | 2016-10-23 10:19 | PDOC PROGRESS REPORT ---
Subjective Progress Note for:: 10/23/16 Subjective:: reason for visit: heart failure, met encephalopathy, COPD exac, acute hypercapneic and hypoxic resp failure hospital course: per my H/P - LEOPOLDO SANCHEZ is a 76 year old male presents from dr goldstein' office where he was being seen in followup of his CKD stage 4 and found to be more anemic than usual, worsening edema c/w anasarca, cough productive of green phlegm and worsening leg wounds from venous stasis and known mild to mod arterial disease. Hg found 7.8 down from 11 just a couple months ago without any clinical apparent bleeding at home or on exam by dr goldstein. He is on coumadin for chronic afib. Scr at his baseline around 2.0. COPD is worse with increasing cough productive of green phlegm but no fever or chills, no increase in his home O2 at 3L/min or increased use of his home neb machine. Leg wounds are worsening and appearing spontaneously as his edema worsens and now tracks up to umbilicus. given this constellation of worsening conditions, we were asked to direct admit for further eval and management. per other'snotes: "This is a follow-up visit for acute on chronic systolic heart failure. The patient was admitted last Thursday. Since then he has been on Lasix IV. He became acutely short of breath [facility] through his stay and was changed over to 60 drip. Cardiology was consulted as well. Fortunately the patient also developed COPD exacerbation with CO2 that necessitated being placed on bilevel Pap. On this throughout the day for the first 1 or 2 days and then transition to nights only. Remarkably well with Lasix drip. Has been discontinued as of 10/19/2016 and the patient is now back on 40 mg IV twice a day will be to eventually get him on p.o. Lasix and the Neri catheter out. Unfortunately the patient has also been quite agitated while he has been here and has required restraints. This is due to his hypercarbia, but now that that is improved I suspect he has some underlying dementia made worse by his current condition. CT of the head was done just to rule out a stroke and this was negative . And ultimately is to get him into a nursing facility." I have resumed his care Thursday and find his heart failure largely compensated, respiratory status waxes and wanes with his mentation, renal function worsened with diuresis and his encephalopathy persists, appears delirious and hallucinating but certainly can be underlying, underdiagnosed probable vascular dementia with behavioral disturbances requiring intermittent physical restraints to keep from self harm. He was able to feed himself bfast this morning but is still easily agitated and confused. ROS: unobtainable due to pt's mental state; he has no recollection of place or time or ever meeting me before, though he does refer to me "as the old fart looking after him". speech is clear but thoughts are random and he is easily agitated or frustrated when he can't answer my questions. wants nothing to do with a physical exam, very limited Physical Exam Vital Signs: Temp Pulse Resp BP Pulse Ox 97.4 F 79 20 191/89 H 95 10/23/16 07:23 10/23/16 07:23 10/23/16 07:23 10/23/16 07:23 10/23/16 07:23 Intake & Output 10/22/16 10/23/16 10/24/16 06:59 06:59 06:59 Intake Total 549 1508 Output Total 400 Balance 149 1508 Weight 119.4 kg 115.5 kg General appearance: PRESENT: disheveled, mild distress, well-developed, well- nourished Head exam: PRESENT: atraumatic, normocephalic Eye exam: PRESENT: EOMI. ABSENT: conjunctival injection, scleral icterus Mouth exam: PRESENT: dry mucosa, neck supple Teeth exam: PRESENT: poor dentation Neck exam: PRESENT: full ROM. ABSENT: JVD, tracheal deviation Respiratory exam: PRESENT: crackles - bases. ABSENT: accessory muscle use, rhonchi, wheezes Cardiovascular exam: PRESENT: RRR. ABSENT: systolic murmur Pulses: PRESENT: normal radial pulses Vascular exam: PRESENT: normal capillary refill GI/Abdominal exam: PRESENT: normal bowel sounds, soft. ABSENT: tenderness Extremities exam: PRESENT: pedal edema - trace. ABSENT: calf tenderness Musculoskeletal exam: PRESENT: full ROM, other - strength is 5/5 and symmetric Neurological exam: PRESENT: alert, awake, oriented to person - only Psychiatric exam: PRESENT: unusual affect Focused psych exam: PRESENT: paranoid, restlessness Skin exam: PRESENT: dry, warm Results Laboratory Results: 10/23/16 05:26 10/23/16 05:26 10/23/16 10/23/16 10/23/16 05:26 05:26 05:26 WBC 10.4 RBC 5.60 H Hgb 11.9 L Hct 41.4 MCV 74 L MCH 21.2 L MCHC 28.6 L RDW 23.3 H Plt Count 371 Seg Neutrophils % 74.4 Lymphocytes % 13.0 Monocytes % 10.0 Eosinophils % 2.1 Basophils % 0.5 Absolute Neutrophils 7.7 Absolute Lymphocytes 1.3 Absolute Monocytes 1.0 Absolute Eosinophils 0.2 Absolute Basophils 0.1 Sodium 148.8 H Potassium 4.2 Chloride 98 Carbon Dioxide 39 H Anion Gap 12 BUN 58 H Creatinine 2.05 H Est GFR ( Amer) 38 L Est GFR (Non-Af Amer) 32 L Glucose 231 H Calcium 9.6 Magnesium 2.8 H Ammonia < 8.7 L 10/13/16 17:47 NT-Pro-B Natriuret Pep 8600 H Impressions: Head CT 10/19/16 00:00 IMPRESSION: NO ACUTE INTRACRANIAL PROCESS. NO SIGNIFICANT CHANGE FROM PRIOR STUDY. Chest X-Ray 10/22/16 00:00 IMPRESSION: Airspace opacity in the right lung base likely representing atelectasis or infiltrate. Correlate clinically. Assessment & Plan - Diagnosis (1) Encephalopathy acute Is this a current diagnosis for this admission?: YesPlan: minimally improved with antipsychotic but not back to baseline, at least he is more cooperative with ADLs and nursing care; failed conservative, non-pharm interventions. unclear etiology but likely multifactorial with component of probable vascular dementia complicated by acute illness with sepsis due to cellulitis from diabetic foot ulcer, acute COPD exac with hypercarbia and hypercapnea, metabolic alkalosis in response to the above complicated by contraction due to diuresis of CHF and azotemia from his CKD stage 4 as most likely culprits. continue olanzapine at 5mg bid, this appears to be the least likely agent to interact with his other meds or cause further harm. ck ABG and if hypercapneic, resume BiPAP as he will tolerate. (2) Acute and chronic respiratory failure ([id number]) Qualifiers: Respiratory failure complication: hypoxia and hypercapnia Qualified Code(s): J96.21 - Acute and chronic respiratory failure with hypoxia Is this a current diagnosis for this admission?: YesPlan: improved but not back to baseline, evidenced by persistently elevated bicarb on renal panel, CXR shows improvement from presentation, nothing acute. ck ABG as noted above, wears home regimen of 3L/min O2 via NC. (3) Paroxysmal atrial fibrillation Is this a current diagnosis for this admission?: YesPlan: rate/rhythm controlled on amiodarone; INR tx, continue coumadin at current dosing (4) Anemia Qualifiers: Anemia type: unspecified type Qualified Code(s): D64.9 - Anemia, unspecified Is this a current diagnosis for this admission?: Yes (5) Acute bronchitis Qualifiers: Bronchitis organism: unspecified organism Qualified Code(s): J20.9 - Acute bronchitis, unspecified Is this a current diagnosis for this admission?: Yes (6) Acute exacerbation of CHF (congestive heart failure) Qualifiers: Congestive heart failure type: systolic Qualified Code(s): I50.23 - Acute on chronic systolic (congestive) heart failure Is this a current diagnosis for this admission?: Yes (7) CAD (coronary artery disease) Qualifiers: Coronary Disease-Associated Artery/Lesion type: unspecified vessel or lesion type Associated angina: without angina Is this a current diagnosis for this admission?: Yes (8) COPD (chronic obstructive pulmonary disease) Qualifiers: COPD type: unspecified COPD Qualified Code(s): J44.9 - Chronic obstructive pulmonary disease, unspecified Is this a current diagnosis for this admission?: YesPlan: no wheezing, stop steroids to see if that helps him clear mentally; f/u ABG and treat as above (9) Cellulitis Qualifiers: Site of cellulitis of extremity: lower extremity Laterality: unspecified laterality Is this a current diagnosis for this admission?: Yes (10) Chronic renal disease, stage IV Is this a current diagnosis for this admission?: YesPlan: acutely worse likely due to diuresis and in spite of adjusting Rx; agree with gentle IVFs as ordered by Dr Goldstein and f/u BMP in am. 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 fdc insulin use status Qualified Code(s): E11.59 - Type 2 diabetes mellitus with other circulatory complications Is this a current diagnosis for this admission?: Yes (12) Diabetic foot ulcer Qualifiers: Diabetes mellitus type: type 2 Laterality: unspecified laterality Is this a current diagnosis for this admission?: Yes (13) Tobacco abuse Is this a current diagnosis for this admission?: Yes (14) Do not resuscitate Is this a current diagnosis for this admission?: Yes - Time Time Spent with patient: 35 or more minutes Medications reviewed and adjusted accordingly: Yes - Plan Summary Plan Summary: case discussed with dr goldstein, see treatment plan above. accepted at [facility] but still restrained or with sitter and so not quite ready for d/c
[2016-10-23 12:24] LABS: ARTERIAL BLOOD BASE EXCESS 9.6 mmol/L; ARTERIAL BLOOD O2 SATURATION 90.9 % (94-98)
[2016-10-23] MEDS ORDERED: ONDANSETRON HCL INJ/PF 4 MG/2 ML SDV IV PRN (15:19)
[2016-10-23] MEDS: HYDRALAZINE HCL INJ/PF 20 MG/1 ML SDV IV PRN (15:58)
[2016-10-23] MEDS: WARFARIN SODIUM 5 MG TABLET PO SCH (21:46)
[2016-10-24] MEDS: HYDRALAZINE HCL INJ/PF 20 MG/1 ML SDV IV PRN (04:21)
[2016-10-24] MEDS: HYDRALAZINE HCL 10 MG TABLET PO SCH ×3 (05:56→21:12)
[2016-10-24] MEDS: LORAZEPAM INJ 2 MG/1 ML VIAL IV PRN ×2 (05:57→17:38)
[2016-10-24] MEDS: INSULIN LISPRO 100 UNIT/ML 3 ML VIAL SUBCUT PRN ×3 (08:02→17:39)
[2016-10-24] MEDS: MORPHINE SULFATE 10 MG/ML INJ IV PRN ×2 (08:02→21:12)
--- NOTE | 2016-10-24 10:39 | PDOC PROGRESS REPORT ---
Subjective Progress Note for:: 10/24/16 Subjective:: reason for visit: heart failure, met encephalopathy, COPD exac, acute hypercapneic and hypoxic resp failure hospital course: per my H/P - LEOPOLDO SANCHEZ is a 76 year old male presents from dr back' office where he was being seen in followup of his CKD stage 4 and found to be more anemic than usual, worsening edema c/w anasarca, cough productive of green phlegm and worsening leg wounds from venous stasis and known mild to mod arterial disease. Hg found 7.8 down from 11 just a couple months ago without any clinical apparent bleeding at home or on exam by dr back. He is on coumadin for chronic afib. Scr at his baseline around 2.0. COPD is worse with increasing cough productive of green phlegm but no fever or chills, no increase in his home O2 at 3L/min or increased use of his home neb machine. Leg wounds are worsening and appearing spontaneously as his edema worsens and now tracks up to umbilicus. given this constellation of worsening conditions, we were asked to direct admit for further eval and management. per other'snotes: "This is a follow-up visit for acute on chronic systolic heart failure. The patient was admitted last Thursday. Since then he has been on Lasix IV. He became acutely short of breath usp through his stay and was changed over to 60 drip. Cardiology was consulted as well. Fortunately the patient also developed COPD exacerbation with CO2 that necessitated being placed on bilevel Pap. On this throughout the day for the first 1 or 2 days and then transition to nights only. Remarkably well with Lasix drip. Has been discontinued as of 10/19/2016 and the patient is now back on 40 mg IV twice a day will be to eventually get him on p.o. Lasix and the Neri catheter out. Unfortunately the patient has also been quite agitated while he has been here and has required restraints. This is due to his hypercarbia, but now that that is improved I suspect he has some underlying dementia made worse by his current condition. CT of the head was done just to rule out a stroke and this was negative . And ultimately is to get him into a nursing facility." I have resumed his care Thursday and find his heart failure largely compensated, respiratory status waxes and wanes with his mentation, renal function worsened with diuresis and his encephalopathy persists, appears delirious and hallucinating but certainly can be underlying, underdiagnosed probable vascular dementia with behavioral disturbances requiring intermittent physical restraints to keep from self harm. He often refuses to wear his O2 which drops his sats and further complicates his delirium. More confused this morning, found him stripped naked in bed singing aloud again , spitting at staff and making buzzing noises and whistles; totally inappropriate behavior to the setting. refusing to participate in nursing care but not physically restrained at present bedside the bedrails. ROS: unobtainable due to pt's mental state; though he does refer to me "as the old fart doctor looking after him". speech is clear but thoughts are random and he is easily agitated or frustrated when he can't answer my questions. Physical Exam Vital Signs: Temp Pulse Resp BP Pulse Ox 97.4 F 83 19 142/82 H 94 10/24/16 07:27 10/24/16 07:27 10/24/16 07:27 10/24/16 07:27 10/24/16 07:27 Intake & Output 10/23/16 10/24/16 10/25/16 06:59 06:59 06:59 Intake Total 1508 1755 Balance 1508 1755 Weight 115.5 kg 103.8 kg General appearance: PRESENT: mild distress, well-developed, well-nourished Head exam: PRESENT: atraumatic, normocephalic Eye exam: ABSENT: conjunctival injection, scleral icterus Mouth exam: PRESENT: dry mucosa, neck supple Neck exam: PRESENT: full ROM. ABSENT: tracheal deviation Respiratory exam: PRESENT: crackles - bases. ABSENT: accessory muscle use, rhonchi, wheezes Cardiovascular exam: PRESENT: RRR. ABSENT: systolic murmur Pulses: PRESENT: normal radial pulses GI/Abdominal exam: PRESENT: normal bowel sounds, soft. ABSENT: tenderness Extremities exam: PRESENT: pedal edema - trace. ABSENT: calf tenderness Musculoskeletal exam: PRESENT: full ROM, other - very strong Neurological exam: PRESENT: alert, altered, awake Psychiatric exam: PRESENT: unusual affect Focused psych exam: PRESENT: delusional, psychomotor agitation Skin exam: PRESENT: dry, warm Results Laboratory Results: 10/23/16 05:26 10/23/16 05:26 10/23/16 12:07 Carbonic Acid 1.81 H HCO3/H2CO3 Ratio 20:1 ABG pH 7.40 ABG pCO2 60.2 H ABG pO2 61.5 L ABG HCO3 36.4 H ABG O2 Saturation 90.9 L ABG Base Excess 9.6 FiO2 3L 10/13/16 17:47 NT-Pro-B Natriuret Pep 8600 H Assessment & Plan - Diagnosis (1) Encephalopathy acute Is this a current diagnosis for this admission?: YesPlan: worse again; failed conservative, non-pharm interventions. unclear etiology but likely multifactorial with component of probable vascular dementia complicated by acute illness with sepsis due to cellulitis from diabetic foot ulcer, acute COPD exac with hypercarbia, hypoxia and hypercapnea, metabolic alkalosis in response to the above complicated by contraction due to diuresis of CHF and azotemia from his CKD stage 4 as most likely culprits. continue olanzapine at 5mg bid, this appears to be the least likely agent to interact with his other meds or cause further harm. ABG shows persistent hypoxemia and compensated hypercapnea (2) Acute and chronic respiratory failure ([id number]) Qualifiers: Respiratory failure complication: hypoxia and hypercapnia Qualified Code(s): J96.21 - Acute and chronic respiratory failure with hypoxia Is this a current diagnosis for this admission?: YesPlan: worse evidenced by persistently elevated bicarb on renal panel and low paO2 on ABG, wears home regimen of 3L/min O2 via NC but won't keep it on while here. (3) Paroxysmal atrial fibrillation Is this a current diagnosis for this admission?: Yes (4) Anemia Qualifiers: Anemia type: unspecified type Qualified Code(s): D64.9 - Anemia, unspecified Is this a current diagnosis for this admission?: Yes (5) Acute bronchitis Qualifiers: Bronchitis organism: unspecified organism Qualified Code(s): J20.9 - Acute bronchitis, unspecified Is this a current diagnosis for this admission?: Yes (6) Acute exacerbation of CHF (congestive heart failure) Qualifiers: Congestive heart failure type: systolic Qualified Code(s): I50.23 - Acute on chronic systolic (congestive) heart failure Is this a current diagnosis for this admission?: Yes (7) CAD (coronary artery disease) Qualifiers: Coronary Disease-Associated Artery/Lesion type: unspecified vessel or lesion type Associated angina: without angina Is this a current diagnosis for this admission?: Yes (8) COPD (chronic obstructive pulmonary disease) Qualifiers: COPD type: unspecified COPD Qualified Code(s): J44.9 - Chronic obstructive pulmonary disease, unspecified Is this a current diagnosis for this admission?: Yes (9) Cellulitis Qualifiers: Site of cellulitis of extremity: lower extremity Laterality: unspecified laterality Is this a current diagnosis for this admission?: Yes (10) Chronic renal disease, stage IV Is this a current diagnosis for this admission?: Yes (11) Diabetes mellitus Qualifiers: Diabetes mellitus type: type 2 Diabetes mellitus complication status: with circulatory complication Diabetes mellitus complication detail: with other circulatory complications Diabetes mellitus terminologist insulin use: unspecified terminologist insulin use status Qualified Code(s): E11.59 - Type 2 diabetes mellitus with other circulatory complications Is this a current diagnosis for this admission?: Yes (12) Diabetic foot ulcer Qualifiers: Diabetes mellitus type: type 2 Laterality: unspecified laterality Is this a current diagnosis for this admission?: Yes (13) Tobacco abuse Is this a current diagnosis for this admission?: Yes (14) Do not resuscitate Is this a current diagnosis for this admission?: Yes - Time Time Spent with patient: 25-34 minutes Anticipated discharge: SNF Within: within 72 hours - Plan Summary Plan Summary: can't get him dispositioned until his mental state clears some, can't get that to happen as long he keeps taking his O2 off driving down his PaO2
[2016-10-24] MEDS: CARVEDILOL 12.5 MG TABLET PO SCH ×2 (12:23→21:12)
[2016-10-24] MEDS: AMIODARONE HCL 200 MG TABLET PO SCH ×2 (12:24→21:12)
[2016-10-24] MEDS: NICOTINE 21 MG/24 HR PATCH.TD24 TD SCH (12:24)
[2016-10-24] MEDS: OLANZAPINE 2.5 MG TABLET PO SCH ×2 (12:24→17:38)
[2016-10-24] MEDS: FAMOTIDINE 20 MG TABLET PO SCH ×2 (12:26→21:12)
[2016-10-24] MEDS: DOCUSATE SODIUM 100 MG CAPSULE PO SCH (12:26)
[2016-10-24] MEDS: WARFARIN SODIUM 5 MG TABLET PO SCH (21:12)
[2016-10-25] MEDS: LORAZEPAM INJ 2 MG/1 ML VIAL IV PRN ×4 (01:07→18:56)
[2016-10-25] MEDS: INSULIN LISPRO 100 UNIT/ML 3 ML VIAL SUBCUT PRN ×5 (01:07→22:20)
[2016-10-25] MEDS: MORPHINE SULFATE 10 MG/ML INJ IV PRN (04:41)
[2016-10-25] MEDS: HYDRALAZINE HCL 10 MG TABLET PO SCH ×3 (05:17→22:20)
[2016-10-25 07:18] LABS: ALANINE AMINOTRANSFERASE 46 U/L (21-72); ALBUMIN 3.9 g/dL (3.5-5.0); ALKALINE PHOSPHATASE 77 U/L (38-126); ANION GAP 12 (5-19); ASPARTATE AMINO TRANSFERASE 25 U/L (17-59); BILIRUBIN,DIRECT 0.5 mg/dL (0.0-0.4); BLOOD UREA NITROGEN 46 mg/dL (7-20); CARBON DIOXIDE 36 mmol/L (22-30); CHLORIDE 105 mmol/L (98-107); CREATININE RESULT 2.02 mg/dL (0.52-1.25); GLUCOSE 207 mg/dL (75-110); MAGNESIUM 2.7 mg/dL (1.6-2.3); PHOSPHORUS 3.9 mg/dL (2.5-4.5); SODIUM 152.5 mmol/L (137-145); TOTAL PROTEIN 7.1 g/dL (6.3-8.2)
[2016-10-25 07:27] LABS: ABSOLUTE BASOPHILS # (AUTO) 0.1 10^3/uL (0.0-0.2); ABSOLUTE EOSINOPHILS # (AUTO) 0.3 10^3/uL (0.0-0.6); ABSOLUTE LYMPHOCYTES (AUTO) 1.2 10^3/uL (0.5-4.7); ABSOLUTE MONOCYTES (AUTO) 0.8 10^3/uL (0.1-1.4); ABSOLUTE NEUT (AUTO) 5.7 10^3/uL (1.7-8.2); BASOPHILS % (AUTO) 0.9 % (0-2); EOSINOPHILS % (AUTO) 3.4 % (0-6); HEMOGLOBIN 11.5 g/dL (13.5-17.0); MEAN CORPUSCULAR VOLUME 75 fl (80-97); MONOCYTES % (AUTO) 10.5 % (3-13); RED BLOOD COUNT 5.49 10^6/uL (4.35-5.55); RED CELL DISTRIBUTION WIDTH 23.6 % (11.5-14.0); SEGMENTED NEUTROPHILS % (AUTO) 70.2 % (42-78); WHITE BLOOD COUNT 8.1 10^3/uL (4.0-10.5)
[2016-10-25 07:28] LABS: HGB HCT DIFFERENCE -6.5
[2016-10-25] MEDS: OLANZAPINE 2.5 MG TABLET PO SCH (09:38)
[2016-10-25] MEDS: FAMOTIDINE 20 MG TABLET PO SCH ×2 (09:38→22:20)
[2016-10-25] MEDS: AMIODARONE HCL 200 MG TABLET PO SCH ×2 (09:38→22:20)
[2016-10-25] MEDS: CARVEDILOL 12.5 MG TABLET PO SCH ×2 (09:38→22:20)
[2016-10-25] MEDS: NICOTINE 21 MG/24 HR PATCH.TD24 TD SCH (09:39)
[2016-10-25] MEDS: 1/2 NORMAL SALINE 1,000 ML IV PRN ×2 (09:40→19:22)
[2016-10-25] MEDS: DOCUSATE SODIUM 100 MG CAPSULE PO SCH (09:40)
--- NOTE | 2016-10-25 09:45 | PDOC PROGRESS REPORT ---
Subjective Progress Note for:: 10/25/16 Subjective:: reason for visit: heart failure, met encephalopathy, COPD exac, acute hypercapneic and hypoxic resp failure hospital course: per my H/P - LEOPOLDO SANCHEZ is a 76 year old male presents from dr back' office where he was being seen in followup of his CKD stage 4 and found to be more anemic than usual, worsening edema c/w anasarca, cough productive of green phlegm and worsening leg wounds from venous stasis and known mild to mod arterial disease. Hg found 7.8 down from 11 just a couple months ago without any clinical apparent bleeding at home or on exam by dr back. He is on coumadin for chronic afib. Scr at his baseline around 2.0. COPD is worse with increasing cough productive of green phlegm but no fever or chills, no increase in his home O2 at 3L/min or increased use of his home neb machine. Leg wounds are worsening and appearing spontaneously as his edema worsens and now tracks up to umbilicus. given this constellation of worsening conditions, we were asked to direct admit for further eval and management. per other'snotes: "This is a follow-up visit for acute on chronic systolic heart failure. The patient was admitted last Thursday. Since then he has been on Lasix IV. He became acutely short of breath skilled nursing through his stay and was changed over to 60 drip. Cardiology was consulted as well. Fortunately the patient also developed COPD exacerbation with CO2 that necessitated being placed on bilevel Pap. On this throughout the day for the first 1 or 2 days and then transition to nights only. Remarkably well with Lasix drip. Has been discontinued as of 10/19/2016 and the patient is now back on 40 mg IV twice a day will be to eventually get him on p.o. Lasix and the Neri catheter out. Unfortunately the patient has also been quite agitated while he has been here and has required restraints. This is due to his hypercarbia, but now that that is improved I suspect he has some underlying dementia made worse by his current condition. CT of the head was done just to rule out a stroke and this was negative . And ultimately is to get him into a nursing facility." I have resumed his care Thursday and find his heart failure largely compensated, respiratory status waxes and wanes with his mentation, renal function worsened with diuresis and his encephalopathy persists, appears delirious and hallucinating but certainly can be underlying, underdiagnosed probable vascular dementia with behavioral disturbances requiring intermittent physical restraints to keep from self harm. He often refuses to wear his O2 which drops his sats and further complicates his delirium. Again confused this morning, found him stripped naked in bed save his adult diaper with his hands in it and pulling at telemetry; he will engage me in conversation only briefly then becomes agitated and will not allow physical exam. refusing to participate in nursing care but not physically restrained at present aside from the bedrails. ROS: unobtainable due to pt's mental state Physical Exam Vital Signs: Temp Pulse Resp BP Pulse Ox 97.5 F 112 H 20 180/90 H 90 L 10/25/16 07:57 10/25/16 07:57 10/25/16 07:57 10/25/16 08:39 10/25/16 07:57 Intake & Output 10/24/16 10/25/16 10/26/16 06:59 06:59 06:59 Intake Total 1755 152 Balance 1755 152 Weight 103.8 kg General appearance: PRESENT: mild distress, agitated, well-developed, well- nourished Head exam: PRESENT: atraumatic, normocephalic Eye exam: ABSENT: conjunctival injection, scleral icterus Mouth exam: PRESENT: dry mucosa, neck supple Neck exam: PRESENT: full ROM. ABSENT: tracheal deviation Respiratory exam: PRESENT: crackles - bases. ABSENT: accessory muscle use, rhonchi, wheezes Cardiovascular exam: PRESENT: RRR, tachycardia ABSENT: systolic murmur Pulses: PRESENT: normal radial pulses GI/Abdominal exam: PRESENT: normal bowel sounds, soft. ABSENT: tenderness Extremities exam: PRESENT: pedal edema - trace. ABSENT: calf tenderness Musculoskeletal exam: PRESENT: full ROM, other - very strong Neurological exam: PRESENT: alert, altered, awake Psychiatric exam: PRESENT: unusual affect Focused psych exam: PRESENT: delusional, psychomotor agitation Skin exam: PRESENT: dry, warm Results Laboratory Results: 10/25/16 06:26 10/25/16 06:26 10/25/16 10/25/16 06:26 06:26 WBC 8.1 RBC 5.49 Hgb 11.5 L Hct 41.0 MCV 75 L MCH 21.0 L MCHC 28.0 L RDW 23.6 H Plt Count 340 Seg Neutrophils % 70.2 Lymphocytes % 15.0 Monocytes % 10.5 Eosinophils % 3.4 Basophils % 0.9 Absolute Neutrophils 5.7 Absolute Lymphocytes 1.2 Absolute Monocytes 0.8 Absolute Eosinophils 0.3 Absolute Basophils 0.1 Sodium 152.5 H Potassium 4.0 Chloride 105 Carbon Dioxide 36 H Anion Gap 12 BUN 46 H Creatinine 2.02 H Est GFR ( Amer) 39 L Est GFR (Non-Af Amer) 32 L Glucose 207 H Calcium 10.0 Phosphorus 3.9 Magnesium 2.7 H Total Bilirubin 1.0 AST 25 ALT 46 Alkaline Phosphatase 77 Total Protein 7.1 Albumin 3.9 10/13/16 17:47 NT-Pro-B Natriuret Pep 8600 H Assessment & Plan - Diagnosis (1) Acute hypernatremia Is this a current diagnosis for this admission?: YesPlan: due to lack of oral intake compounded by diuresis for his heart failure; start IVFs and monitor for response (2) Encephalopathy acute Is this a current diagnosis for this admission?: YesPlan: worse; failed conservative, non-pharm interventions. unclear etiology but likely multifactorial with component of probable vascular dementia complicated by acute illness with sepsis due to cellulitis from diabetic foot ulcer, acute COPD exac with hypercarbia, hypoxia and hypercapnea, metabolic alkalosis in response to the above complicated by contraction due to diuresis of CHF and azotemia from his CKD stage 4 as most likely culprits. Now with hypernatremia due to lack of oral intake - start IVFs 1/2NS and monitor for response discontinue olanzapine as no benefit seen, continue prn ativan and add prn haldol as he simply isn't progressing. QTc 460 on last ecg ABG shows persistent hypoxemia and compensated hypercapnea; still refusing to wear his O2 (3) Acute and chronic respiratory failure ([id number]) Qualifiers: Respiratory failure complication: hypoxia and hypercapnia Qualified Code(s): J96.21 - Acute and chronic respiratory failure with hypoxia Is this a current diagnosis for this admission?: YesPlan: worse evidenced by persistently elevated bicarb on renal panel and low paO2 on ABG, wears home regimen of 3L/min O2 via NC but won't keep it on while here. (4) Paroxysmal atrial fibrillation Is this a current diagnosis for this admission?: Yes (5) Anemia Qualifiers: Anemia type: unspecified type Qualified Code(s): D64.9 - Anemia, unspecified Is this a current diagnosis for this admission?: Yes (6) Acute bronchitis Qualifiers: Bronchitis organism: unspecified organism Qualified Code(s): J20.9 - Acute bronchitis, unspecified Is this a current diagnosis for this admission?: Yes (7) Acute exacerbation of CHF (congestive heart failure) Qualifiers: Congestive heart failure type: systolic Qualified Code(s): I50.23 - Acute on chronic systolic (congestive) heart failure Is this a current diagnosis for this admission?: Yes (8) CAD (coronary artery disease) Qualifiers: Coronary Disease-Associated Artery/Lesion type: unspecified vessel or lesion type Associated angina: without angina Is this a current diagnosis for this admission?: Yes (9) COPD (chronic obstructive pulmonary disease) Qualifiers: COPD type: unspecified COPD Qualified Code(s): J44.9 - Chronic obstructive pulmonary disease, unspecified Is this a current diagnosis for this admission?: Yes (10) Cellulitis Qualifiers: Site of cellulitis of extremity: lower extremity Laterality: unspecified laterality Is this a current diagnosis for this admission?: Yes (11) Chronic renal disease, stage IV Is this a current diagnosis for this admission?: Yes (12) Diabetes mellitus Qualifiers: Diabetes mellitus type: type 2 Diabetes mellitus complication status: with circulatory complication Diabetes mellitus complication detail: with other circulatory complications Diabetes mellitus half-way insulin use: unspecified half-way insulin use status Qualified Code(s): E11.59 - Type 2 diabetes mellitus with other circulatory complications Is this a current diagnosis for this admission?: Yes (13) Diabetic foot ulcer Qualifiers: Diabetes mellitus type: type 2 Laterality: unspecified laterality Is this a current diagnosis for this admission?: Yes (14) Tobacco abuse Is this a current diagnosis for this admission?: Yes (15) Do not resuscitate Is this a current diagnosis for this admission?: Yes - Time Time Spent with patient: 25-34 minutes - Plan Summary Plan Summary: prognosis is poor and likelihood of meaningful fpc recovery diminishes with each passing day;can't get him dispositioned until his mental state clears some, can't get that to happen as long he keeps taking his O2 off driving down his PaO2
[2016-10-25] MEDS: HYDRALAZINE HCL INJ/PF 20 MG/1 ML SDV IV PRN (17:06)
[2016-10-25] MEDS: HALOPERIDOL LACTATE INJ 5 MG/1 ML VIAL IV PRN (22:20)
[2016-10-25] MEDS: WARFARIN SODIUM 5 MG TABLET PO SCH (22:20)
[2016-10-26] MEDS: HALOPERIDOL LACTATE INJ 5 MG/1 ML VIAL IV PRN (01:55)
[2016-10-26] MEDS: LORAZEPAM INJ 2 MG/1 ML VIAL IV PRN ×4 (04:06→21:36)
[2016-10-26] MEDS: HYDRALAZINE HCL 10 MG TABLET PO SCH (05:19)
[2016-10-26] MEDS: 1/2 NORMAL SALINE 1,000 ML IV PRN ×2 (05:22→17:54)
[2016-10-26] MEDS: HYDRALAZINE HCL INJ/PF 20 MG/1 ML SDV IV PRN (05:36)
[2016-10-26 06:53] LABS: ABSOLUTE BASOPHILS # (AUTO) 0.1 10^3/uL (0.0-0.2); ABSOLUTE EOSINOPHILS # (AUTO) 0.2 10^3/uL (0.0-0.6); ABSOLUTE MONOCYTES (AUTO) 0.8 10^3/uL (0.1-1.4); ABSOLUTE NEUT (AUTO) 7.4 10^3/uL (1.7-8.2); EOSINOPHILS % (AUTO) 2.6 % (0-6); HEMOGLOBIN 11.5 g/dL (13.5-17.0); LYMPHOCYTES % (AUTO) 10.5 % (13-45); MEAN CORPUSCULAR HEMOGLOBIN 21.3 pg (27.0-33.4); MEAN CORPUSCULAR HGB CONC 28.7 g/dL (32.0-36.0); MEAN CORPUSCULAR VOLUME 74 fl (80-97); MONOCYTES % (AUTO) 8.7 % (3-13); RED CELL DISTRIBUTION WIDTH 23.4 % (11.5-14.0); SEGMENTED NEUTROPHILS % (AUTO) 77.2 % (42-78); WHITE BLOOD COUNT 9.6 10^3/uL (4.0-10.5)
[2016-10-26 07:03] LABS: ALANINE AMINOTRANSFERASE 44 U/L (21-72); ALBUMIN 3.6 g/dL (3.5-5.0); ALKALINE PHOSPHATASE 75 U/L (38-126); ANION GAP 14 (5-19); ASPARTATE AMINO TRANSFERASE 30 U/L (17-59); BILIRUBIN,DIRECT 0.5 mg/dL (0.0-0.4); BILIRUBIN,TOTAL 0.9 mg/dL (0.2-1.3); BLOOD UREA NITROGEN 41 mg/dL (7-20); CALCIUM 9.4 mg/dL (8.4-10.2); CARBON DIOXIDE 29 mmol/L (22-30); CHLORIDE 107 mmol/L (98-107); CREATININE RESULT 1.93 mg/dL (0.52-1.25); GLUCOSE 200 mg/dL (75-110); MAGNESIUM 2.6 mg/dL (1.6-2.3); POTASSIUM 4.4 mmol/L (3.6-5.0); SODIUM 149.5 mmol/L (137-145); TOTAL PROTEIN 6.7 g/dL (6.3-8.2)
[2016-10-26 07:10] LABS: HGB HCT DIFFERENCE -5.6
[2016-10-26 07:11] LABS: HEMATOCRIT 40.1 % (37.9-51.0)
[2016-10-26] MEDS: INSULIN LISPRO 100 UNIT/ML 3 ML VIAL SUBCUT PRN ×4 (07:28→21:55)
--- NOTE | 2016-10-26 10:43 | PDOC PROGRESS REPORT ---
Subjective Progress Note for:: 10/26/16 Subjective:: reason for visit: heart failure, met encephalopathy, COPD exac, acute hypercapneic and hypoxic resp failure hospital course: per my H/P - LEOPOLDO SANCHEZ is a 76 year old male presents from dr back' office where he was being seen in followup of his CKD stage 4 and found to be more anemic than usual, worsening edema c/w anasarca, cough productive of green phlegm and worsening leg wounds from venous stasis and known mild to mod arterial disease. Hg found 7.8 down from 11 just a couple months ago without any clinical apparent bleeding at home or on exam by dr back. He is on coumadin for chronic afib. Scr at his baseline around 2.0. COPD is worse with increasing cough productive of green phlegm but no fever or chills, no increase in his home O2 at 3L/min or increased use of his home neb machine. Leg wounds are worsening and appearing spontaneously as his edema worsens and now tracks up to umbilicus. given this constellation of worsening conditions, we were asked to direct admit for further eval and management. per other'snotes: "This is a follow-up visit for acute on chronic systolic heart failure. The patient was admitted last Thursday. Since then he has been on Lasix IV. He became acutely short of breath longterm through his stay and was changed over to 60 drip. Cardiology was consulted as well. Fortunately the patient also developed COPD exacerbation with CO2 that necessitated being placed on bilevel Pap. On this throughout the day for the first 1 or 2 days and then transition to nights only. Remarkably well with Lasix drip. Has been discontinued as of 10/19/2016 and the patient is now back on 40 mg IV twice a day will be to eventually get him on p.o. Lasix and the Neri catheter out. Unfortunately the patient has also been quite agitated while he has been here and has required restraints. This is due to his hypercarbia, but now that that is improved I suspect he has some underlying dementia made worse by his current condition. CT of the head was done just to rule out a stroke and this was negative . And ultimately is to get him into a nursing facility." I have resumed his care Thursday and find his heart failure largely compensated, respiratory status waxes and wanes with his mentation, renal function worsened with diuresis and his encephalopathy persists, appears delirious and hallucinating but certainly can be underlying, underdiagnosed probable vascular dementia with behavioral disturbances requiring intermittent physical restraints to keep from self harm. He often refuses to wear his O2 which drops his sats and further complicates his delirium. Again confused this morning, found him still stripped naked in bed save his adult diaper; medicated this morning before my arrival and now not able to participate, lethargic. His Na peaked at 152 and is trending down, 2/2 diuresis and diminishing oral intake. The change to haldol seems to be working better than the olanzapine, started scheduled oral haldol 10/26. His INR is climbing, likely due to poor intake, and coumadin dose adjusted 10/26 ROS: unobtainable due to pt's mental state Physical Exam Vital Signs: Temp Pulse Resp BP Pulse Ox 97.7 F 77 20 178/95 H 99 10/26/16 07:37 10/26/16 07:37 10/26/16 07:37 10/26/16 07:37 10/26/16 07:37 Intake & Output 10/25/16 10/26/16 10/27/16 06:59 06:59 06:59 Intake Total 152 2370 Balance 152 2370 Weight 104.2 kg General appearance: PRESENT: mild distress, agitated, well-developed, well- nourished Head exam: PRESENT: atraumatic, normocephalic Eye exam: ABSENT: conjunctival injection, scleral icterus Mouth exam: PRESENT: dry mucosa, neck supple Neck exam: PRESENT: full ROM. ABSENT: tracheal deviation Respiratory exam: PRESENT: crackles - bases. ABSENT: accessory muscle use, rhonchi, wheezes Cardiovascular exam: PRESENT: RRR, tachycardia ABSENT: systolic murmur Pulses: PRESENT: normal radial pulses GI/Abdominal exam: PRESENT: normal bowel sounds, soft. ABSENT: tenderness, no grimace Extremities exam: PRESENT: pedal edema - trace Musculoskeletal exam: PRESENT: full ROM, moves all 4 spontaneously Neurological exam: PRESENT: lethargic, altered Psychiatric exam: PRESENT: unusual affect Focused psych exam: PRESENT: delusional, psychomotor agitation Skin exam: PRESENT: dry, warm Results Laboratory Results: 10/26/16 05:40 10/26/16 05:40 10/26/16 10/26/16 05:40 05:40 WBC 9.6 RBC 5.40 Hgb 11.5 L Hct 40.1 MCV 74 L MCH 21.3 L MCHC 28.7 L RDW 23.4 H Plt Count 333 Seg Neutrophils % 77.2 Lymphocytes % 10.5 L Monocytes % 8.7 Eosinophils % 2.6 Basophils % 1.0 Absolute Neutrophils 7.4 Absolute Lymphocytes 1.0 Absolute Monocytes 0.8 Absolute Eosinophils 0.2 Absolute Basophils 0.1 Sodium 149.5 H Potassium 4.4 Chloride 107 Carbon Dioxide 29 Anion Gap 14 BUN 41 H Creatinine 1.93 H Est GFR ( Amer) 41 L Est GFR (Non-Af Amer) 34 L Glucose 200 H Calcium 9.4 Magnesium 2.6 H Total Bilirubin 0.9 AST 30 ALT 44 Alkaline Phosphatase 75 Total Protein 6.7 Albumin 3.6 10/13/16 17:47 NT-Pro-B Natriuret Pep 8600 H Impressions: Head CT 10/19/16 00:00 IMPRESSION: NO ACUTE INTRACRANIAL PROCESS. NO SIGNIFICANT CHANGE FROM PRIOR STUDY. Chest X-Ray 10/22/16 00:00 IMPRESSION: Airspace opacity in the right lung base likely representing atelectasis or infiltrate. Correlate clinically. Assessment & Plan - Diagnosis (1) Acute hypernatremia Is this a current diagnosis for this admission?: YesPlan: improved but not back to baseline; due to lack of oral intake compounded by diuresis for his heart failure; adjust IVFs and monitor for response (2) Encephalopathy acute Is this a current diagnosis for this admission?: YesPlan: minimally improved with change to haldol; failed conservative, non-pharm interventions. unclear etiology but likely multifactorial with component of probable vascular dementia complicated by acute illness with sepsis due to cellulitis from diabetic foot ulcer, acute COPD exac with hypercarbia, hypoxia and hypercapnea, metabolic alkalosis in response to the above complicated by contraction due to diuresis of CHF and azotemia from his CKD stage 4 as most likely culprits. Now with hypernatremia due to lack of oral intake - start IVFs 1/2NS and monitor for response discontinue olanzapine as no benefit seen, continue prn ativan and titrate haldol. QTc 460 on last ecg ABG shows persistent hypoxemia and compensated hypercapnea; still refusing to wear his O2 (3) Acute and chronic respiratory failure ([id number]) Qualifiers: Respiratory failure complication: hypoxia and hypercapnia Qualified Code(s): J96.21 - Acute and chronic respiratory failure with hypoxia Is this a current diagnosis for this admission?: YesPlan: worse, RA sat 85% this morning as he won't wear O2 when awake, also evidenced by persistently elevated bicarb on renal panel and low paO2 on ABG, wears home regimen of 3L/min O2 via NC but won't keep it on while here. (4) Paroxysmal atrial fibrillation Is this a current diagnosis for this admission?: Yes (5) Anemia Qualifiers: Anemia type: unspecified type Qualified Code(s): D64.9 - Anemia, unspecified Is this a current diagnosis for this admission?: Yes (6) Acute bronchitis Qualifiers: Bronchitis organism: unspecified organism Qualified Code(s): J20.9 - Acute bronchitis, unspecified Is this a current diagnosis for this admission?: Yes (7) Acute exacerbation of CHF (congestive heart failure) Qualifiers: Congestive heart failure type: systolic Qualified Code(s): I50.23 - Acute on chronic systolic (congestive) heart failure Is this a current diagnosis for this admission?: Yes (8) CAD (coronary artery disease) Qualifiers: Coronary Disease-Associated Artery/Lesion type: unspecified vessel or lesion type Associated angina: without angina Is this a current diagnosis for this admission?: Yes (9) COPD (chronic obstructive pulmonary disease) Qualifiers: COPD type: unspecified COPD Qualified Code(s): J44.9 - Chronic obstructive pulmonary disease, unspecified Is this a current diagnosis for this admission?: Yes (10) Cellulitis Qualifiers: Site of cellulitis of extremity: lower extremity Laterality: unspecified laterality Is this a current diagnosis for this admission?: Yes (11) Chronic renal disease, stage IV Is this a current diagnosis for this admission?: Yes (12) Diabetes mellitus Qualifiers: Diabetes mellitus type: type 2 Diabetes mellitus complication status: with circulatory complication Diabetes mellitus complication detail: with other circulatory complications Diabetes mellitus long-term insulin use: unspecified long term care social worker insulin use status Qualified Code(s): E11.59 - Type 2 diabetes mellitus with other circulatory complications Is this a current diagnosis for this admission?: Yes (13) Diabetic foot ulcer Qualifiers: Diabetes mellitus type: type 2 Laterality: unspecified laterality Is this a current diagnosis for this admission?: Yes (14) Tobacco abuse Is this a current diagnosis for this admission?: Yes (15) Do not resuscitate Is this a current diagnosis for this admission?: Yes (16) Anticoagulant long-term use Is this a current diagnosis for this admission?: YesPlan: INR worse due to lack of oral intake; adjust coumadin and monitor INR - Time Time Spent with patient: 35 or more minutes Medications reviewed and adjusted accordingly: Yes
[2016-10-26] MEDS: FAMOTIDINE 20 MG TABLET PO SCH ×2 (11:08→21:36)
[2016-10-26] MEDS: CARVEDILOL 12.5 MG TABLET PO SCH ×2 (11:08→21:36)
[2016-10-26] MEDS: NICOTINE 21 MG/24 HR PATCH.TD24 TD SCH (11:09)
[2016-10-26] MEDS: AMIODARONE HCL 200 MG TABLET PO SCH ×2 (11:09→21:36)
[2016-10-26] MEDS: DOCUSATE SODIUM 100 MG CAPSULE PO SCH (11:09)
[2016-10-26] MEDS: HYDRALAZINE HCL 50 MG TABLET PO SCH ×2 (15:32→21:36)
[2016-10-26] MEDS: HALOPERIDOL 1 MG TABLET PO SCH (21:36)
[2016-10-26] MEDS ORDERED: WARFARIN SODIUM 3 MG TABLET PO SCH (22:00)
[2016-10-27] MEDS: HALOPERIDOL LACTATE INJ 5 MG/1 ML VIAL IV PRN (03:55)
[2016-10-27] MEDS: HYDRALAZINE HCL 50 MG TABLET PO SCH ×3 (05:23→21:45)
[2016-10-27 06:43] LABS: PROTHROMBIN TIME 48.2 SEC (11.4-15.4)
[2016-10-27 06:48] LABS: ANION GAP 12 (5-19); BLOOD UREA NITROGEN 36 mg/dL (7-20); CALCIUM 9.1 mg/dL (8.4-10.2); CARBON DIOXIDE 29 mmol/L (22-30); CHLORIDE 106 mmol/L (98-107); CREATININE RESULT 1.93 mg/dL (0.52-1.25); GLUCOSE 206 mg/dL (75-110); POTASSIUM 3.8 mmol/L (3.6-5.0); SODIUM 146.9 mmol/L (137-145)
[2016-10-27] MEDS: 1/2 NORMAL SALINE 1,000 ML IV PRN ×2 (07:21→21:46)
[2016-10-27] MEDS: FAMOTIDINE 20 MG TABLET PO SCH ×2 (09:01→21:46)
[2016-10-27] MEDS: CARVEDILOL 12.5 MG TABLET PO SCH ×2 (09:01→21:46)
[2016-10-27] MEDS: DOCUSATE SODIUM 100 MG CAPSULE PO SCH (09:01)
[2016-10-27] MEDS: NICOTINE 21 MG/24 HR PATCH.TD24 TD SCH (09:01)
[2016-10-27] MEDS: HALOPERIDOL 1 MG TABLET PO SCH ×2 (09:02→21:45)
[2016-10-27] MEDS: AMIODARONE HCL 200 MG TABLET PO SCH ×2 (09:02→21:45)
[2016-10-27] MEDS: INSULIN LISPRO 100 UNIT/ML 3 ML VIAL SUBCUT PRN ×3 (11:20→22:12)
--- NOTE | 2016-10-27 14:33 | PDOC PROGRESS REPORT ---
Subjective Progress Note for:: 10/27/16 Subjective:: reason for visit: heart failure, met encephalopathy, COPD exac, acute hypercapneic and hypoxic resp failure hospital course: per my H/P - LEOPOLDO SANCHEZ is a 76 year old male presents from dr back' office where he was being seen in followup of his CKD stage 4 and found to be more anemic than usual, worsening edema c/w anasarca, cough productive of green phlegm and worsening leg wounds from venous stasis and known mild to mod arterial disease. Hg found 7.8 down from 11 just a couple months ago without any clinical apparent bleeding at home or on exam by dr back. He is on coumadin for chronic afib. Scr at his baseline around 2.0. COPD is worse with increasing cough productive of green phlegm but no fever or chills, no increase in his home O2 at 3L/min or increased use of his home neb machine. Leg wounds are worsening and appearing spontaneously as his edema worsens and now tracks up to umbilicus. given this constellation of worsening conditions, we were asked to direct admit for further eval and management. per other's notes: "This is a follow-up visit for acute on chronic systolic heart failure. The patient was admitted last Thursday. Since then he has been on Lasix IV. He became acutely short of breath correction through his stay and was changed over to 60 drip. Cardiology was consulted as well. Fortunately the patient also developed COPD exacerbation with CO2 that necessitated being placed on bilevel Pap. On this throughout the day for the first 1 or 2 days and then transition to nights only. Remarkably well with Lasix drip. Has been discontinued as of 10/19/2016 and the patient is now back on 40 mg IV twice a day will be to eventually get him on p.o. Lasix and the Neri catheter out. Unfortunately the patient has also been quite agitated while he has been here and has required restraints. This is due to his hypercarbia, but now that that is improved I suspect he has some underlying dementia made worse by his current condition. CT of the head was done just to rule out a stroke and this was negative . And ultimately is to get him into a nursing facility." I have resumed his care Thursday and find his heart failure largely compensated, respiratory status waxes and wanes with his mentation, renal function worsened with diuresis and his encephalopathy persists, appears delirious and hallucinating but certainly can be underlying, underdiagnosed probable vascular dementia with behavioral disturbances requiring intermittent physical restraints to keep from self harm. He often refuses to wear his O2 which drops his sats and further complicates his delirium. Remains confused this morning, found him still stripped naked in bed save his adult diaper. he is verbal but nonsensical and rarely appropriate. His Na peaked at 152 and is trending down, 2/2 diuresis and diminishing oral intake. The change to haldol seems to be working better than the olanzapine, started scheduled oral haldol 10/26. His INR is climbing, likely due to poor intake, and coumadin dose adjusted 10/26 and d/c'd 10/27. ROS: unobtainable due to pt's mental state Physical Exam Vital Signs: Temp Pulse Resp BP Pulse Ox 97.7 F 66 24 H 151/77 H 96 10/27/16 12:06 10/27/16 12:06 10/27/16 12:06 10/27/16 12:06 10/27/16 12:06 Intake & Output 10/26/16 10/27/16 10/28/16 06:59 06:59 06:59 Intake Total 2370 2123 120 Balance 2370 2123 120 Weight 104.2 kg 101.7 kg General appearance: PRESENT: mild distress, easily agitated, well-developed, well-nourished Head exam: PRESENT: atraumatic, normocephalic Eye exam: ABSENT: conjunctival injection, scleral icterus Mouth exam: PRESENT: dry mucosa, neck supple Neck exam: PRESENT: full ROM. ABSENT: tracheal deviation Respiratory exam: PRESENT: crackles - bases. ABSENT: accessory muscle use, rhonchi, wheezes Cardiovascular exam: PRESENT: RRR, no tachycardia ABSENT: systolic murmur Pulses: PRESENT: normal radial pulses GI/Abdominal exam: PRESENT: normal bowel sounds, soft. ABSENT: tenderness, no grimace Extremities exam: PRESENT: pedal edema - 1+ and worsening in pretibial areas Musculoskeletal exam: PRESENT: full ROM, moves all 4 spontaneously Neurological exam: PRESENT: lethargic, altered Psychiatric exam: PRESENT: unusual affect Focused psych exam: PRESENT: delusional, psychomotor agitation Skin exam: PRESENT: dry, warm Results Laboratory Results: 10/26/16 05:40 06/19/17 05:34 10/27/16 05:34 Sodium 146.9 H Potassium 3.8 Chloride 106 Carbon Dioxide 29 Anion Gap 12 BUN 36 H Creatinine 1.93 H Est GFR ( Amer) 41 L Est GFR (Non-Af Amer) 34 L Glucose 206 H Calcium 9.1 10/13/16 17:47 NT-Pro-B Natriuret Pep 8600 H Assessment & Plan - Diagnosis (1) Acute hypernatremia Is this a current diagnosis for this admission?: YesPlan: improved but not back to baseline; due to lack of oral intake compounded by diuresis for his heart failure; adjust IVFs and monitor for response (2) Encephalopathy acute Is this a current diagnosis for this admission?: YesPlan: minimally improved with change to haldol but not back to baseline; failed previous conservative, non-pharm interventions. unclear etiology but likely multifactorial with component of probable vascular dementia complicated by acute illness with sepsis due to cellulitis from diabetic foot ulcer, acute COPD exac with hypercarbia, hypoxia and hypercapnea, metabolic alkalosis in response to the above complicated by contraction due to diuresis of CHF and azotemia from his CKD stage 4 as most likely culprits. Now with hypernatremia due to lack of oral intake - started IVFs 1/2NS 10/26 and monitor for response, showing some signs of fluid third spacing today. discontinue olanzapine as no benefit seen, continue prn ativan and titrate haldol. QTc 460 on last ecg ABG shows persistent hypoxemia and compensated hypercapnea; still refusing to wear his O2 and suffering intermittent hypoxemia as a result. (3) Acute and chronic respiratory failure ([id number]) Qualifiers: Respiratory failure complication: hypoxia and hypercapnia Qualified Code(s): J96.21 - Acute and chronic respiratory failure with hypoxia Is this a current diagnosis for this admission?: YesPlan: worse, RA sat 85% again this morning as he won't wear O2 when awake, also evidenced by persistently elevated bicarb on renal panel and low paO2 on ABG, wears home regimen of 3L/min O2 via NC but won't keep it on while here. (4) Paroxysmal atrial fibrillation Is this a current diagnosis for this admission?: YesPlan: rate/rhythm controlled on amiodarone; INR supratx, hold coumadin and repeat INR in am (5) Anemia Qualifiers: Anemia type: unspecified type Qualified Code(s): D64.9 - Anemia, unspecified Is this a current diagnosis for this admission?: YesPlan: back to baseline after 2U PRBCs early on admission; no evidence for acute blood loss (6) Acute bronchitis Qualifiers: Bronchitis organism: unspecified organism Qualified Code(s): J20.9 - Acute bronchitis, unspecified Is this a current diagnosis for this admission?: YesPlan: improved and likely back to baseline; completed a course of abx, weaned steroids off to remove as confounder regarding his encephalopathy. (7) Acute exacerbation of CHF (congestive heart failure) Qualifiers: Congestive heart failure type: systolic Qualified Code(s): I50.23 - Acute on chronic systolic (congestive) heart failure Is this a current diagnosis for this admission?: YesPlan: worse today with early third spacing noted but IVFs needed for other reasons, will decrease rate and monitor (8) CAD (coronary artery disease) Qualifiers: Coronary Disease-Associated Artery/Lesion type: unspecified vessel or lesion type Associated angina: without angina Is this a current diagnosis for this admission?: YesPlan: stable; no evidence for acute ischemia (9) COPD (chronic obstructive pulmonary disease) Qualifiers: COPD type: unspecified COPD Qualified Code(s): J44.9 - Chronic obstructive pulmonary disease, unspecified Is this a current diagnosis for this admission?: YesPlan: chronic hypercarbia and hypoxia worsened due to patient noncompliance, complicating his mentation (10) Cellulitis Qualifiers: Site of cellulitis of extremity: lower extremity Laterality: unspecified laterality Is this a current diagnosis for this admission?: YesPlan: markedly improved after completing a course of abx; continue topical care (11) Chronic renal disease, stage IV Is this a current diagnosis for this admission?: YesPlan: fluctuating with diuresis or IVFs as his volume status fluctuates contributing to his mentation. dr back knows him well (12) Diabetes mellitus Qualifiers: Diabetes mellitus type: type 2 Diabetes mellitus complication status: with circulatory complication Diabetes mellitus complication detail: with other circulatory complications Diabetes mellitus intermediate teacher insulin use: unspecified intermediate teacher insulin use status Qualified Code(s): E11.59 - Type 2 diabetes mellitus with other circulatory complications Is this a current diagnosis for this admission?: YesPlan: cover with SSI (13) Diabetic foot ulcer Qualifiers: Diabetes mellitus type: type 2 Laterality: unspecified laterality Is this a current diagnosis for this admission?: YesPlan: as above under cellulitis (14) Tobacco abuse Is this a current diagnosis for this admission?: Yes (15) Do not resuscitate Is this a current diagnosis for this admission?: Yes (16) Anticoagulant long-term use Is this a current diagnosis for this admission?: YesPlan: INR worse due to lack of oral intake; stop coumadin and monitor INR - Time Time Spent with patient: 35 or more minutes Medications reviewed and adjusted accordingly: Yes - Plan Summary Plan Summary: he is still too agitated and active to manage in SNF and now showing signs of hypervolemia as we use IVFs to correct electrolytes. I do not have a good feeling regarding his prognosis, I fear his mental state and his quality of life may never improve.
[2016-10-28] MEDS: HALOPERIDOL LACTATE INJ 5 MG/1 ML VIAL IV PRN (02:01)
[2016-10-28] MEDS: HYDRALAZINE HCL 50 MG TABLET PO SCH ×3 (05:44→22:01)
[2016-10-28 06:07] LABS: ABSOLUTE BASOPHILS # (AUTO) 0.1 10^3/uL (0.0-0.2); ABSOLUTE EOSINOPHILS # (AUTO) 0.2 10^3/uL (0.0-0.6); ABSOLUTE MONOCYTES (AUTO) 0.9 10^3/uL (0.1-1.4); ABSOLUTE NEUT (AUTO) 7.8 10^3/uL (1.7-8.2); BASOPHILS % (AUTO) 1.2 % (0-2); EOSINOPHILS % (AUTO) 1.8 % (0-6); HEMATOCRIT 38.5 % (37.9-51.0); HEMOGLOBIN 11.1 g/dL (13.5-17.0); LYMPHOCYTES % (AUTO) 9.6 % (13-45); MEAN CORPUSCULAR HEMOGLOBIN 21.7 pg (27.0-33.4); MEAN CORPUSCULAR HGB CONC 28.9 g/dL (32.0-36.0); MEAN CORPUSCULAR VOLUME 75 fl (80-97); MONOCYTES % (AUTO) 8.7 % (3-13); RED BLOOD COUNT 5.13 10^6/uL (4.35-5.55); SEGMENTED NEUTROPHILS % (AUTO) 78.7 % (42-78); WHITE BLOOD COUNT 9.9 10^3/uL (4.0-10.5)
[2016-10-28 06:10] LABS: ALANINE AMINOTRANSFERASE 41 U/L (21-72); ALBUMIN 3.4 g/dL (3.5-5.0); ALKALINE PHOSPHATASE 82 U/L (38-126); ANION GAP 14 (5-19); ASPARTATE AMINO TRANSFERASE 27 U/L (17-59); BILIRUBIN,DIRECT 0.5 mg/dL (0.0-0.4); BILIRUBIN,TOTAL 0.9 mg/dL (0.2-1.3); BLOOD UREA NITROGEN 29 mg/dL (7-20); CALCIUM 9.1 mg/dL (8.4-10.2); CARBON DIOXIDE 25 mmol/L (22-30); CHLORIDE 107 mmol/L (98-107); CREATININE RESULT 1.69 mg/dL (0.52-1.25); GLUCOSE 193 mg/dL (75-110); POTASSIUM 4.1 mmol/L (3.6-5.0); TOTAL PROTEIN 6.3 g/dL (6.3-8.2)
[2016-10-28 06:22] LABS: HGB HCT DIFFERENCE -5.2
[2016-10-28] MEDS: CARVEDILOL 12.5 MG TABLET PO SCH ×2 (10:02→22:00)
[2016-10-28] MEDS: FAMOTIDINE 20 MG TABLET PO SCH ×2 (10:04→22:01)
[2016-10-28] MEDS: NICOTINE 21 MG/24 HR PATCH.TD24 TD SCH (10:04)
[2016-10-28] MEDS: DOCUSATE SODIUM 100 MG CAPSULE PO SCH (10:04)
[2016-10-28] MEDS: AMIODARONE HCL 200 MG TABLET PO SCH ×2 (10:04→22:00)
[2016-10-28] MEDS: INSULIN LISPRO 100 UNIT/ML 3 ML VIAL SUBCUT PRN ×3 (12:03→22:33)
[2016-10-28] MEDS: HALOPERIDOL 1 MG TABLET PO SCH ×2 (13:01→22:01)
--- NOTE | 2016-10-28 14:59 | PDOC PROGRESS REPORT ---
Subjective Subjective:: Patient is an unfortunate 76-year-old male with known stage IV kidney disease, anemia, cough productive of green phlegm and worsening wounds on his right lower extremity due to known mild to moderate arterial disease. He presented to the emergency room with increased shortness of breath and anasarca. The patient was found to have decompensated heart failure and was initially on a Lasix drip. The patient also was felt to be having a COPD exacerbation and at one point was on BiPAP. The patient also appears to have underlying dementia that seems to have been worsening over the past year according to the . When I went to see the patient today the patient's tells me that his mental status is worse. He is sleeping this afternoon and does not want to wake up. She states that he did eat about half of his lunch tray but that his mental status is not as good as it was yesterday. He has somewhat stabilized from his acute issues at the beginning of this hospitalization but in some ways it is worse as he is more lethargic, significantly more confused and not interactive. The tentative plan is subacute rehabilitation at the time of discharge. Review of systems could not be obtained from the patient. He would arouse briefly to a sternal rub but then go right back to sleep. Physical Exam Vital Signs: Temp Pulse Resp BP Pulse Ox 97.5 F 75 24 H 133/80 H 90 L 10/28/16 12:00 10/28/16 12:00 10/28/16 12:00 10/28/16 12:00 10/28/16 12:00 Intake & Output 10/27/16 10/28/16 10/29/16 06:59 06:59 06:59 Intake Total 2122 Balance 2122 Weight 101.7 kg 104.4 kg General appearance: PRESENT: no acute distress, other - He will arouse briefly to a sternal rub but then go right back to sleep. He is in no acute distress Head exam: PRESENT: atraumatic, normocephalic Mouth exam: PRESENT: moist Respiratory exam: PRESENT: clear to auscultation zaki, other - This exam is somewhat limited as the patient will not cooperate for an exam. He appears to be diminished in the lower bases bilaterally. ABSENT: accessory muscle use Cardiovascular exam: PRESENT: RRR, +S1, +S2. ABSENT: diastolic murmur, rubs, systolic murmur GI/Abdominal exam: PRESENT: distended, soft. ABSENT: tenderness Extremities exam: PRESENT: +2 edema Musculoskeletal exam: ABSENT: ambulatory Neurological exam: PRESENT: altered. ABSENT: alert, awake, oriented to time, oriented to situation Skin exam: PRESENT: dry - He has venous stasis changes to the bilateral lower extremities. He has wounds on the end of some of his toes have black eschars over them on his right lower extremity, warm Results Laboratory Results: 10/28/16 04:51 10/28/16 04:51 10/28/16 10/28/16 04:51 04:51 WBC 9.9 RBC 5.13 Hgb 11.1 L Hct 38.5 MCV 75 L MCH 21.7 L MCHC 28.9 L RDW 24.0 H Plt Count 317 Seg Neutrophils % 78.7 H Lymphocytes % 9.6 L Monocytes % 8.7 Eosinophils % 1.8 Basophils % 1.2 Absolute Neutrophils 7.8 Absolute Lymphocytes 1.0 Absolute Monocytes 0.9 Absolute Eosinophils 0.2 Absolute Basophils 0.1 Sodium 146.0 H Potassium 4.1 Chloride 107 Carbon Dioxide 25 Anion Gap 14 BUN 29 H Creatinine 1.69 H Est GFR ( Amer) 48 L Est GFR (Non-Af Amer) 40 L Glucose 193 H Calcium 9.1 Total Bilirubin 0.9 AST 27 ALT 41 Alkaline Phosphatase 82 Total Protein 6.3 Albumin 3.4 L 10/13/16 17:47 NT-Pro-B Natriuret Pep 8600 H Impressions: Head CT 10/19/16 00:00 IMPRESSION: NO ACUTE INTRACRANIAL PROCESS. NO SIGNIFICANT CHANGE FROM PRIOR STUDY. Chest X-Ray 10/22/16 00:00 IMPRESSION: Airspace opacity in the right lung base likely representing atelectasis or infiltrate. Correlate clinically. Assessment & Plan - Diagnosis (1) Acute respiratory failure with hypoxia and hypercapnia Plan: The patient is not very responsive this afternoon. He has known hypercapnic respiratory failure. He may need to be placed back on BiPAP. I am going to get an ABG for further evaluation. (2) Encephalopathy Is this a current diagnosis for this admission?: YesPlan: Likely multifactorial in nature. I suspect he has an elevated CO2 level and that his encephalopathy today could possibly be due to that. Also he has known dementia at baseline. This could be contributing as well. (3) Acute on chronic systolic (congestive) heart failure Is this a current diagnosis for this admission?: YesPlan: The patient has been taken off of his Lasix as his creatinine was rising. He appears to be having a significant amount of edema. I am going to place him back on Lasix 40 mg IV push every 12 hours. (4) Acute hypernatremia Is this a current diagnosis for this admission?: Yes (5) COPD (chronic obstructive pulmonary disease) Qualifiers: COPD type: unspecified COPD Qualified Code(s): J44.9 - Chronic obstructive pulmonary disease, unspecified Is this a current diagnosis for this admission?: YesPlan: He is not wheezing on exam. He may have had a mild exacerbation when he came into the hospital but this is resolved. (6) Chronic renal disease, stage IV Is this a current diagnosis for this admission?: YesPlan: Currently stable. He follows with Dr. Goldstein (7) Diabetes mellitus Qualifiers: Diabetes mellitus type: type 2 Diabetes mellitus complication status: with circulatory complication Diabetes mellitus complication detail: with other circulatory complications Diabetes mellitus long term care social worker insulin use: unspecified group home insulin use status Qualified Code(s): E11.59 - Type 2 diabetes mellitus with other circulatory complications Is this a current diagnosis for this admission?: YesPlan: Continue current regimen. (8) Diabetic foot ulcer Qualifiers: Diabetes mellitus type: type 2 Laterality: unspecified laterality Is this a current diagnosis for this admission?: YesPlan: I do not believe he has an acute infection at this point. (9) Early onset Alzheimer's dementia Plan: According to the patient's she feels as if he has had progressive dementia at baseline for quite some time now. He does not carry a formal diagnosis. (10) Atrial fibrillation Plan: Continue amiodarone (11) Peripheral vascular disease Plan: Stable (12) Do not resuscitate Is this a current diagnosis for this admission?: Yes - Time Time Spent with patient: 25-34 minutes
[2016-10-28] MEDS: FUROSEMIDE INJ/PF 40 MG/4 ML SDV IV SCH (17:22)
[2016-10-28] MEDS: 1/2 NORMAL SALINE 1,000 ML IV PRN (19:46)
[2016-10-29] MEDS: HALOPERIDOL LACTATE INJ 5 MG/1 ML VIAL IV PRN (02:01)
[2016-10-29] MEDS: FUROSEMIDE INJ/PF 40 MG/4 ML SDV IV SCH ×2 (05:26→17:15)
[2016-10-29] MEDS: HYDRALAZINE HCL 50 MG TABLET PO SCH ×3 (05:27→22:29)
[2016-10-29] MEDS: DOCUSATE SODIUM 100 MG CAPSULE PO SCH (09:23)
[2016-10-29] MEDS: CARVEDILOL 12.5 MG TABLET PO SCH ×2 (09:23→22:29)
[2016-10-29] MEDS: AMIODARONE HCL 200 MG TABLET PO SCH ×2 (09:24→22:29)
[2016-10-29] MEDS: NICOTINE 21 MG/24 HR PATCH.TD24 TD SCH (09:24)
[2016-10-29] MEDS: FAMOTIDINE 20 MG TABLET PO SCH ×2 (09:24→22:29)
[2016-10-29] MEDS: HALOPERIDOL 1 MG TABLET PO SCH ×2 (09:24→22:29)
[2016-10-29 10:15] LABS: ARTERIAL BLOOD BASE EXCESS 0.9 mmol/L; ARTERIAL BLOOD O2 SATURATION 93.3 % (94-98)
--- NOTE | 2016-10-29 15:59 | PDOC PROGRESS REPORT ---
Subjective Progress Note for:: 10/29/16 Subjective:: The patient is awake and alert today. He is not oriented. Review of systems could not be obtained from the patient. According to the patient's his mental status is greatly improved today. We discussed getting physical therapy back in to see the patient in the hopes are that we can get him well enough to go to subacute rehabilitation at discharge. I spent quite some time going over medications and answering all of her questions today. Physical Exam Vital Signs: Temp Pulse Resp BP Pulse Ox 97.2 F 69 18 147/72 H 91 L 10/29/16 07:30 10/29/16 07:30 10/29/16 07:30 10/29/16 07:30 10/29/16 07:30 Intake & Output 10/28/16 10/29/16 10/30/16 06:59 06:59 06:59 Intake Total 1969 1595 Balance 1969 1595 Weight 104.4 kg 103.9 kg General appearance: PRESENT: no acute distress, cooperative, well-developed, well-nourished Head exam: PRESENT: atraumatic, normocephalic Mouth exam: PRESENT: moist, neck supple Respiratory exam: PRESENT: clear to auscultation zaki - He is diminished in the lower bases bilaterally. He had poor effort. There may be a few fine crackles in the lower bases.. ABSENT: accessory muscle use, chest wall tenderness Cardiovascular exam: PRESENT: RRR, +S1, +S2. ABSENT: diastolic murmur, gallop, rubs, systolic murmur GI/Abdominal exam: PRESENT: normal bowel sounds, soft. ABSENT: tenderness Extremities exam: ABSENT: clubbing, pedal edema, tenderness Results Laboratory Results: 10/28/16 04:51 10/28/16 04:51 10/29/16 09:55 Carbonic Acid 1.17 HCO3/H2CO3 Ratio 21:1 ABG pH 7.43 ABG pCO2 38.9 ABG pO2 64.9 L ABG HCO3 25.2 ABG O2 Saturation 93.3 L ABG Base Excess 0.9 FiO2 21% 10/13/16 10/29/16 17:47 11:03 NT-Pro-B Natriuret Pep 8600 H 7070 H Impressions: Head CT 10/19/16 00:00 IMPRESSION: NO ACUTE INTRACRANIAL PROCESS. NO SIGNIFICANT CHANGE FROM PRIOR STUDY. Chest X-Ray 10/22/16 00:00 IMPRESSION: Airspace opacity in the right lung base likely representing atelectasis or infiltrate. Correlate clinically. Assessment & Plan - Diagnosis (1) Acute respiratory failure with hypoxia and hypercapnia Plan: The patient has known hypoxic and hypercapnic respiratory failure. He was started back on IV Lasix yesterday and is much improved today. Will continue oxygen support as needed and therapy as outlined below. (2) Encephalopathy Is this a current diagnosis for this admission?: YesPlan: Likely multifactorial in nature. I suspect he has an elevated CO2 level and that his encephalopathy at this point is related to hypercapnia. Also he has known dementia at baseline. This could be contributing as well. (3) Acute on chronic systolic (congestive) heart failure Is this a current diagnosis for this admission?: YesPlan: T much improved on Lasix 40 mg IV push every 12 hours.. We will continue this today. (4) Acute hypernatremia Is this a current diagnosis for this admission?: YesPlan: He will have a chemistry panel drawn in the morning. (5) COPD (chronic obstructive pulmonary disease) Qualifiers: COPD type: unspecified COPD Qualified Code(s): J44.9 - Chronic obstructive pulmonary disease, unspecified Is this a current diagnosis for this admission?: YesPlan: He is not wheezing on exam. He may have had a mild exacerbation when he came into the hospital but this is resolved. (6) Chronic renal disease, stage IV Is this a current diagnosis for this admission?: YesPlan: Currently stable. He follows with Dr. 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 (8) Diabetic foot ulcer Qualifiers: Diabetes mellitus type: type 2 Laterality: unspecified laterality Is this a current diagnosis for this admission?: YesPlan: I do not believe he has an acute infection at this point. (9) Early onset Alzheimer's dementia Plan: According to the patient's she feels as if he has had progressive dementia at baseline for quite some time now. He does not carry a formal diagnosis. (10) Atrial fibrillation Plan: Continue amiodarone. He is currently in a sinus rhythm and rate controlled. (11) Peripheral vascular disease Plan: Stable (12) Do not resuscitate Is this a current diagnosis for this admission?: Yes - Time Time Spent with patient: 25-34 minutes Disposition: Inpatient hospitalization remains necessary. If we can get the patient where he can participate with therapy he hopefully can be discharged to a skilled facility for subacute rehabilitation.
[2016-10-29] MEDS: 1/2 NORMAL SALINE 1,000 ML IV PRN (17:15)
[2016-10-29] MEDS: INSULIN LISPRO 100 UNIT/ML 3 ML VIAL SUBCUT PRN (22:29)
[2016-10-30] MEDS: LORAZEPAM INJ 2 MG/1 ML VIAL IV PRN (02:39)
[2016-10-30 05:14] LABS: ABSOLUTE BASOPHILS # (AUTO) 0.1 10^3/uL (0.0-0.2); ABSOLUTE EOSINOPHILS # (AUTO) 0.2 10^3/uL (0.0-0.6); ABSOLUTE MONOCYTES (AUTO) 0.8 10^3/uL (0.1-1.4); ABSOLUTE NEUT (AUTO) 6.8 10^3/uL (1.7-8.2); BASOPHILS % (AUTO) 1.4 % (0-2); EOSINOPHILS % (AUTO) 2.4 % (0-6); HEMATOCRIT 37.8 % (37.9-51.0); HEMOGLOBIN 11.1 g/dL (13.5-17.0); LYMPHOCYTES % (AUTO) 11.6 % (13-45); MEAN CORPUSCULAR HEMOGLOBIN 21.8 pg (27.0-33.4); MEAN CORPUSCULAR HGB CONC 29.3 g/dL (32.0-36.0); MEAN CORPUSCULAR VOLUME 75 fl (80-97); MONOCYTES % (AUTO) 8.6 % (3-13); RED BLOOD COUNT 5.08 10^6/uL (4.35-5.55); RED CELL DISTRIBUTION WIDTH 24.4 % (11.5-14.0); WHITE BLOOD COUNT 8.9 10^3/uL (4.0-10.5)
[2016-10-30 05:50] LABS: ANION GAP 14 (5-19); BLOOD UREA NITROGEN 27 mg/dL (7-20); CALCIUM 9.1 mg/dL (8.4-10.2); CARBON DIOXIDE 25 mmol/L (22-30); CHLORIDE 103 mmol/L (98-107); CREATININE RESULT 1.78 mg/dL (0.52-1.25); GLUCOSE 198 mg/dL (75-110); MAGNESIUM 2.1 mg/dL (1.6-2.3); POTASSIUM 3.9 mmol/L (3.6-5.0); SODIUM 141.7 mmol/L (137-145)
[2016-10-30 05:56] LABS: HGB HCT DIFFERENCE -4.5
[2016-10-30 05:57] LABS: ANISOCYTOSIS 3+; HYPOCHROMASIA 1+; MICROCYTOSIS 1+; OVALOCYTES 1+; POIKILOCYTOSIS 1+; POLYCHROMASIA SLIGHT; TOXIC GRANULATION SLIGHT; TOXIC VACUOLATION PRESENT
[2016-10-30 05:58] LABS: TEAR DROP CELLS SLIGHT
[2016-10-30] MEDS: FUROSEMIDE INJ/PF 40 MG/4 ML SDV IV SCH ×2 (06:31→17:12)
[2016-10-30] MEDS: HYDRALAZINE HCL 50 MG TABLET PO SCH ×3 (06:31→22:46)
[2016-10-30] MEDS: CARVEDILOL 12.5 MG TABLET PO SCH ×2 (09:06→22:47)
[2016-10-30] MEDS: AMIODARONE HCL 200 MG TABLET PO SCH ×2 (09:06→22:47)
[2016-10-30] MEDS: NICOTINE 21 MG/24 HR PATCH.TD24 TD SCH (09:06)
[2016-10-30] MEDS: DOCUSATE SODIUM 100 MG CAPSULE PO SCH (09:06)
[2016-10-30] MEDS: FAMOTIDINE 20 MG TABLET PO SCH ×2 (09:06→22:47)
[2016-10-30] MEDS: INSULIN LISPRO 100 UNIT/ML 3 ML VIAL SUBCUT PRN ×3 (13:07→22:47)
[2016-10-30] MEDS ORDERED: HALOPERIDOL 1 MG TABLET PO SCH (22:00)
[2016-10-30] MEDS ORDERED: HALOPERIDOL 2 MG TABLET PO SCH (22:00)
[2016-10-31] MEDS: FUROSEMIDE INJ/PF 40 MG/4 ML SDV IV SCH (06:00)
[2016-10-31] MEDS: HYDRALAZINE HCL 50 MG TABLET PO SCH ×2 (06:00→14:45)
[2016-10-31] MEDS: CARVEDILOL 12.5 MG TABLET PO SCH (09:39)
[2016-10-31] MEDS: FAMOTIDINE 20 MG TABLET PO SCH (09:39)
[2016-10-31] MEDS: DOCUSATE SODIUM 100 MG CAPSULE PO SCH (09:39)
[2016-10-31] MEDS: NICOTINE 21 MG/24 HR PATCH.TD24 TD SCH (09:39)
[2016-10-31] MEDS: AMIODARONE HCL 200 MG TABLET PO SCH (09:40)
--- NOTE | 2016-10-31 10:43 | PDOC DISCHARGE SUMMARY ---
General - Admit/Disc Date/PCP Admission Date/Primary Care Provider: 10/13/16 17:15 HANK LOCKETT MD Discharge Date: 10/31/16 - Discharge Diagnosis (1) Acute respiratory failure with hypoxia and hypercapnia Summary: Resolved. His respiratory likely secondary to congestive heart failure exacerbation as well as COPD exacerbation. (2) Encephalopathy Is this a current diagnosis for this admission?: YesSummary: Likely secondary to hypercapnic respiratory failure. The patient is greatly improved. (3) Acute on chronic systolic (congestive) heart failure Is this a current diagnosis for this admission?: YesSummary: He will resume his home regimen of Lasix. He was initially maintained on a make Lasix drip. This was stopped for a couple of days and then he was started on 40 mg of Lasix IV every 12 hours. He will resume 80 mg of p.o. Lasix in the morning and 40 at night. (4) Acute hypernatremia Is this a current diagnosis for this admission?: YesSummary: Resolved (5) COPD (chronic obstructive pulmonary disease) Is this a current diagnosis for this admission?: YesSummary: Resolved at this point. (6) Chronic renal disease, stage IV Is this a current diagnosis for this admission?: YesSummary: Stable. I am making him an appointment to follow-up with Dr. Goldstein in 2-3 weeks. (7) Diabetes mellitus Is this a current diagnosis for this admission?: YesSummary: He will resume his oral regimen. (8) Diabetic foot ulcer Is this a current diagnosis for this admission?: YesSummary: No evidence of infection at this point. (9) Early onset Alzheimer's dementia Summary: Patient does not carry a formal diagnosis of Alzheimer's but certainly he has fairly advanced dementia. This was discussed at length with the patient's . (10) Atrial fibrillation Summary: The patient had atrial fibrillation with rapid ventricular response. He is on anticoagulation therapy with Coumadin. Currently his Coumadin is being held due to his INR being supratherapeutic. I would recommend that we recheck a PT/ INR on November 03, 2016. His prior dose of Coumadin was 5.5 mg. Would recommend starting him back at 3 mg and frequently checking INRs and titrate as necessary. (11) Peripheral vascular disease Summary: He will resume low-dose aspirin (12) Do not resuscitate Is this a current diagnosis for this admission?: Yes - Additional Information Resuscitation Status: Full Code Discharge Diet: Diabetic - 2g Na, Other (Comments) - 2gNa Discharge Activity: Activity As Tolerated, Balance Activity w/Rest, Keep Legs Elevated, Weigh Daily Home Medications: Carvedilol [Coreg] 2 tab PO Q12 04/05/15 Furosemide [Lasix 40 mg Tablet] 80 mg PO QAM #60 tablet 04/12/15 Insulin Glargine,Hum.rec.anlog [Lantus Insulin 100 Unit/mL] 10 unit SUBCUT Q12 # 10 insuln.pen 04/12/15 Linezolid [Zyvox 600 mg Tablet] 600 mg PO Q12 #20 tablet 04/12/15 Amiodarone HCl [Cordarone 200 mg Tablet] 100 mg PO Q12 10/13/16 Budesonide/Formoterol Fumarate [Symbicort HFA 160-4.5 mcg Inhaler 6 gm] 2 puff IH Q12 10/13/16 Carvedilol [Coreg 12.5 mg Tablet] 12.5 mg PO Q12 10/13/16 Cholecalciferol (Vitamin D3) [Vitamin D3 2000 unit Tablet] 2,000 unit PO DAILY 10/13/16 Furosemide [Lasix] 40 mg PO QPM 10/13/16 Furosemide [Lasix] 80 mg PO QAM 10/13/16 Glimepiride [Amaryl 1 mg Tablet] 2 mg PO QAM 10/13/16 Multivitamin W/Iron, Minerals [Compete] 1 tab PO DAILY 10/13/16 Acetaminophen [Tylenol 325 mg Tablet] 650 mg PO Q4HP PRN tablet 10/31/16 Docusate Sodium [Colace 100 mg Capsule] 100 mg PO BID #0 10/31/16 Docusate Sodium [Colace 100 mg Capsule] 100 mg PO DAILY capsule 10/31/16 Glucagon,Human Recombinant [Glucagen Inj 1 mg Vial] 1 mg IM PRN PRN vial Haloperidol [Haldol 2 mg Tablet] 2 mg PO QHS #30 tablet 10/31/16 Hydralazine HCl [Apresoline 50 mg Tablet] 50 mg PO Q8 tablet 10/31/16 Nicotine [Nicoderm 21 mg/24 Hr Transderm Patch] 1 each TD DAILY patch.td24 Polyethylene Glycol 3350 [Miralax Powder 17 gm/Packet] 17 gm PO DAILYP PRN powd.pack 10/31/16 History of Present Illness History of Present Illness: LEOPOLDO SANCHEZ is a 76 year old male with a increased edema and shortness of breath Hospital Course Hospital Course: Please see complete medical records for details. This is been a prolonged hospitalization and this will be a brief summary. The patient is an unfortunate 76-year-old male with known stage IV kidney disease. He follows with Dr. Goldstein as an outpatient. He has known COPD, anemia and peripheral vascular disease with worsening wounds on his right lower extremity. He presented to the emergency room with increased shortness of breath and anasarca. He was found to have acutely decompensated heart failure and was initially on a Lasix drip. His hospitalization has been complicated by the development of a COPD exacerbation as well as atrial fibrillation with rapid ventricular response. The patient was followed by cardiology. Due to the patient's severe hypercapnia he had issues with encephalopathy and at one point required restraints. Over the course of the hospitalization the patient has slowly improved. At this point he has been weaned off of his oxygen and he is been kept in the hospital for an additional 2 days to make sure he is stable. He is now participating with physical therapy although he is significantly debilitated after this prolonged hospitalization. At this point the patient is an awake alert and appropriate for 2 days. He has had no acute medical issues during this time. He will be transitioned to subacute rehab today in stable condition. Physical Exam Vital Signs: Temp Pulse Resp BP Pulse Ox 97.7 F 70 18 164/81 H 95 10/31/16 08:24 10/31/16 08:24 10/31/16 08:24 10/31/16 08:24 10/31/16 08:24 Intake & Output 10/30/16 10/31/16 11/01/16 06:59 06:59 06:59 Intake Total 1700 1030 Balance 1700 1030 Weight 103 kg 99.5 kg General appearance: PRESENT: no acute distress, disheveled, well-developed, well -nourished Head exam: PRESENT: atraumatic, normocephalic Mouth exam: PRESENT: moist, tongue midline Respiratory exam: PRESENT: clear to auscultation zaki, other - He is decreased in the lower bases bilaterally. I am not hearing any adventitious breath sounds. ABSENT: rales, rhonchi, wheezes Cardiovascular exam: PRESENT: RRR. ABSENT: diastolic murmur, rubs, systolic murmur GI/Abdominal exam: PRESENT: normal bowel sounds, soft. ABSENT: distended, guarding, mass, organolmegaly, rebound, tenderness Extremities exam: PRESENT: +1 edema, other - He has venous stasis changes to both lower extremities bilaterally. Right lower extremity reveals some eschar on most of his toes. There is no evidence of underlying infection at this point. No drainage. Musculoskeletal exam: PRESENT: other - Significant weakness. ABSENT: ambulatory Psychiatric exam: PRESENT: appropriate affect, normal mood. ABSENT: homicidal ideation, suicidal ideation Skin exam: PRESENT: dry, intact, warm. ABSENT: cyanosis, rash Results Laboratory Results: 10/30/16 04:40 10/30/16 04:40 10/13/16 10/29/16 17:47 11:03 NT-Pro-B Natriuret Pep 8600 H 7070 H Impressions: Head CT 10/19/16 00:00 IMPRESSION: NO ACUTE INTRACRANIAL PROCESS. NO SIGNIFICANT CHANGE FROM PRIOR STUDY. Chest X-Ray 10/22/16 00:00 IMPRESSION: Airspace opacity in the right lung base likely representing atelectasis or infiltrate. Correlate clinically. Qualifiers PATEINT BEING DISCHARGED WITH ANY OF THE FOLLOWING DIAGNOSIS?: No, Heart Failure VTE patient discharged on overlapping Therapy?: No Reason(s) for not prescribing Overlap Therapy:: Not indicated Stroke Pt being discharged on Anti-thrombolytic therapy?: No Stroke Pt being discharged on Anti-coagulation therapy?: No Stroke Pt being discharged on Statins?: No HI Pt being discharged on Aspirin therapy?: No HI Pt being discharged on Statins?: No HI Pt discharged ACEI/ARBS?: No HF Pt being discharged on ACEI for LVEF less than 40%?: No HF Pt being discharged on ARBS for LVEF less than 40%?: No HF Pt with Afib discharged with Warfarin?: Yes HF Pt discharged on evidence-based Beta Graciela:: Yes Plan Discharge Plan: The patient will be transition to subacute rehabilitation today in stable condition. Time Spent: Greater than 30 Minutes
[2016-10-31] MEDS: INSULIN LISPRO 100 UNIT/ML 3 ML VIAL SUBCUT PRN (12:02)
--- NOTE | 2016-10-31 12:04 | PDOC PROGRESS REPORT ---
Subjective Progress Note for:: 10/31/16 Subjective:: Patient was seen in the hospital today.Is sitting up and slowly trying to eat his breakfast. He is awake alert and responsive to questions inappropriately. He denies any history of chest pain shortness of breath no history of nausea vomiting.Discussions were done with the treating nurse. He is having physical therapy in bed but is not capable of holding his own weight.He is being discharged to [facility] for rehab.Labs and medications were reviewed. Physical Exam Vital Signs: Temp Pulse Resp BP Pulse Ox 97.7 F 70 18 164/81 H 95 10/31/16 08:24 10/31/16 08:24 10/31/16 08:24 10/31/16 08:24 10/31/16 08:24 Intake & Output 10/30/16 10/31/16 11/01/16 06:59 06:59 06:59 Intake Total 1700 1030 Balance 1700 1030 Weight 103 kg 99.5 kg General appearance: PRESENT: no acute distress Respiratory exam: PRESENT: clear to auscultation zaki. ABSENT: crackles, rhonchi Cardiovascular exam: PRESENT: +S1, +S2, systolic murmur GI/Abdominal exam: PRESENT: normal bowel sounds, soft. ABSENT: diminished bowel sounds, distended, organomegaly, tenderness Extremities exam: PRESENT: pedal edema - Trace plus Results Laboratory Results: 10/30/16 04:40 10/30/16 04:40 10/13/16 10/29/16 17:47 11:03 NT-Pro-B Natriuret Pep 8600 H 7070 H Impressions: Head CT 10/19/16 00:00 IMPRESSION: NO ACUTE INTRACRANIAL PROCESS. NO SIGNIFICANT CHANGE FROM PRIOR STUDY. Chest X-Ray 10/22/16 00:00 IMPRESSION: Airspace opacity in the right lung base likely representing atelectasis or infiltrate. Correlate clinically. Assessment & Plan - Diagnosis (1) Acute bronchitis Qualifiers: Bronchitis organism: unspecified organism Qualified Code(s): J20.9 - Acute bronchitis, unspecified Is this a current diagnosis for this admission?: Yes (2) Anemia Qualifiers: Anemia type: unspecified type Qualified Code(s): D64.9 - Anemia, unspecified Is this a current diagnosis for this admission?: Yes (3) Acute exacerbation of CHF (congestive heart failure) Qualifiers: Congestive heart failure type: systolic Qualified Code(s): I50.23 - Acute on chronic systolic (congestive) heart failure Is this a current diagnosis for this admission?: YesPlan: Resolved. (4) Chronic renal disease, stage IV Is this a current diagnosis for this admission?: YesPlan: Stable. His alkalosis is also resolved and stable now. If he is discharged to [facility] I would like to follow-up in about 2 weeks time with labs. (5) Diabetes mellitus Qualifiers: Diabetes mellitus type: type 2 Diabetes mellitus complication status: with circulatory complication Diabetes mellitus complication detail: with other circulatory complications Diabetes mellitus longterm insulin use: unspecified longterm insulin use status Qualified Code(s): E11.59 - Type 2 diabetes mellitus with other circulatory complications Is this a current diagnosis for this admission?: Yes (6) Diabetic foot ulcer Qualifiers: Diabetes mellitus type: type 2 Laterality: unspecified laterality Is this a current diagnosis for this admission?: Yes (7) Acute respiratory failure with hypoxia and hypercapnia Plan: Stable. (8) Encephalopathy Is this a current diagnosis for this admission?: YesPlan: Resolved. (9) Metabolic alkalosis Plan: Resolved.
[2016-10-31 13:58] VITALS: BP 113/61
== END 2016-10-31 15:06 | DRG 291 ==
LOC: UNDOADMIN 15:12 → 3W 15:12
PROVIDERS: ADMIT Internal Medicine; ATTEND Internal Medicine
PROC: 5A09557 Assistance with Respiratory Ventilation, Greater than 96 Consecutive Hours, Continuous Positive Airway Pressure (ICD-10-PCS; principal; 2016-10-13)
DX: I50.23 Acute on chronic systolic (congestive) heart failure (principal); J96.02 Acute respiratory failure with hypercapnia; J96.01 Acute respiratory failure with hypoxia; G93.40 Encephalopathy, unspecified; E87.0 Hyperosmolality and hypernatremia; I13.0 Hypertensive heart and chronic kidney disease with heart failure and stage 1 through stage 4 chronic kidney disease, or unspecified chronic kidney disease; N18.4 Chronic kidney disease, stage 4 (severe); J44.1 Chronic obstructive pulmonary disease with (acute) exacerbation; J44.0 Chronic obstructive pulmonary disease with (acute) lower respiratory infection; E87.3 Alkalosis; E11.22 Type 2 diabetes mellitus with diabetic chronic kidney disease; E11.621 Type 2 diabetes mellitus with foot ulcer; I73.9 Peripheral vascular disease, unspecified; E11.42 Type 2 diabetes mellitus with diabetic polyneuropathy; D64.9 Anemia, unspecified; I48.2 Chronic atrial fibrillation; Z79.01 Long term (current) use of anticoagulants; G30.9 Alzheimer's disease, unspecified; F02.80 Dementia in other diseases classified elsewhere, unspecified severity, without behavioral disturbance, psychotic disturbance, mood disturbance, and anxiety; K21.9 Gastro-esophageal reflux disease without esophagitis; Z66 Do not resuscitate; Z91.14 Patient's other noncompliance with medication regimen; F17.290 Nicotine dependence, other tobacco product, uncomplicated; Z78.1 Physical restraint status; Z79.899 Other long term (current) drug therapy; Z79.4 Long term (current) use of insulin; Z88.8 Allergy status to other drugs, medicaments and biological substances; J20.9 Acute bronchitis, unspecified
CPT/HCPCS: 36415; 36430; 36600; 70450; 71010; 80048; 80053; 80202; 81001; 82140; 82607; 82728; 82746; 82803; 82962; 83540; 83550; 83735; 83880; 84100; 84466; 85025; 85045; 85610; 86850; 86900; 86901; 86920; 87040; 87086; 93005; 93010; 93306; 94660; G8978-GP; G8979-GP; J0360; J0696; J1630; J1815; J1940; J2060; J2270; J2920; J3370; J3490; J7030; J7050; J7060; J7512; J7620; P9016

== ENCOUNTER 2016-11-04 01:10 | Inpatient (IN) | payer MEDICARE, OTHER ==
--- NOTE | 2016-11-04 01:31 | ER Document Report ---
ED General - General Stated Complaint: SHORTNESS OF BREATH Time Seen by Provider: 11/04/16 01:14 Notes: Patient is a 76-year-old male presents with complaint of difficulty breathing. He was discharged from the hospital approximately 4 days ago. He was in the hospital for approximately 2 weeks due to congestive heart failure followed by CBD cuspid patient followed by atrial fibrillation with RVR. Patient has a history of chronic kidney disease as well as recurrent CHF. Tonight she started having difficulty breathing. When paramedics arrived his oxygen saturations were in the 80s on nasal cannula. He had diffuse rales. They placed him on BiPAP. His gradually improved on the BiPAP. He denies any pain. He has no other complaints at this time. History from patient himself is limited because of the BiPAP mask and his respiratory distress. Patient is a DNR per recent discharge summary. TRAVEL OUTSIDE OF THE [place] IN LAST 30 DAYS: No - Related Data Allergies/Adverse Reactions: PEPE Inhibitors [Pepe Inhibitors] Allergy (Severe, Verified 04/05/15 03:38) angioedema finasteride [Finasteride] Allergy (Severe, Verified 04/05/15 03:38) angioedema lisinopril [Lisinopril] Allergy (Severe, Verified 04/05/15 03:37) angioedema Past Medical History - Social History Smoking Status: Former Smoker Frequency of alcohol use: None Drug Abuse: None Family History: Reviewed & Not Pertinent - Past Medical History Cardiac Medical History: Reports: Hx Congestive Heart Failure, Hx Coronary Artery Disease, Hx Hypertension Pulmonary Medical History: Reports: Hx COPD Neurological Medical History: Reports: Hx Cerebrovascular Accident Endocrine Medical History: Reports: Hx Diabetes Mellitus Type 2 GI Medical History: Reports: Hx Gastroesophageal Reflux Disease Musculoskeltal Medical History: Reports Hx Arthritis Past Surgical History: Reports: Hx Abdominal Surgery - AAA, Hx Appendectomy, Hx Cardiac Catheterization - Immunizations Hx Diphtheria, Pertussis, Tetanus Vaccination: Yes Physical Exam - Vital signs Vitals: Resp Pulse Ox 27 H 83 L 11/04/16 01:23 11/04/16 01:23 Course - Re-evaluation Re-evalutation: 11/04/16 01:33 Patient became hypoxic and hypotensive on the took off the CPAP mask description the BiPAP. Patient is now back on the BiPAP. His oxygen saturations are slowly increasing. His mean arterial pressure currently is 65. I am awaiting chest x-ray. Still has bilateral equal air exchange on repeat lung auscultation. 11/04/16 02:30 Patient is now little more awake and alert. His oxygen saturation is 95% on BiPAP. His FiO2 is 100%. I will trended down to 90% and monitor his SPO2. We will slowly try down his FiO2 to the lowest possible number was still maintaining a normal pulse ox. I am awaiting the results of his laboratory evaluation prior to admission. - Vital Signs Vital signs: Temp Pulse Resp BP Pulse Ox 32 H 100/62 95 11/04/16 02:01 11/04/16 02:51 11/04/16 02:51 - Laboratory Result Diagrams: 11/04/16 01:40 11/04/16 01:40 Laboratory results interpreted by me: 11/04/16 11/04/16 11/04/16 01:40 01:40 01:40 WBC 18.7 H RBC 5.57 H Hgb 12.3 L MCV 76 L MCH 22.0 L MCHC 29.1 L RDW 26.3 H Seg Neuts % (Manual) 90 H Band Neutrophils % 1 L Lymphocytes % (Manual) 7 L Monocytes % (Manual) 2 L Abs Neuts (Manual) 17.0 H PT APTT VBG pH Anion Gap 23 H BUN 79 H Creatinine 7.02 H Est GFR ( Amer) 9 L Est GFR (Non-Af Amer) 8 L Glucose 177 H Direct Bilirubin 0.6 H Creatine Kinase NT-Pro-B Natriuret Pep 3500 H 11/04/16 11/04/16 11/04/16 01:40 01:40 01:40 WBC RBC Hgb MCV MCH MCHC RDW Seg Neuts % (Manual) Band Neutrophils % Lymphocytes % (Manual) Monocytes % (Manual) Abs Neuts (Manual) PT 31.0 H APTT 57.1 H VBG pH 7.25 L Anion Gap BUN Creatinine Est GFR ( Amer) Est GFR (Non-Af Amer) Glucose Direct Bilirubin Creatine Kinase 248 H NT-Pro-B Natriuret Pep - EKG Interpretation by Me Additional EKG results interpreted by me: 11/04/16 02:06 EKG is reviewed and interpreted by me. EKG shows normal sinus rhythm with a rate of [address] segment elevation. Patient does have some T-wave inversions in leads V4,V5, 1, and aVL. These are new in comparison to his old EKG from October 20, 2016. - Transfer of Care Notes: 11/04/16 03:50 Patient has elevated with some ischemic changes on EKG. This could be related to the hypoxemia that he was experiencing which could have caused ischemia and strain on his heart potentially could be related to coronary disease. At this time is unclear. He has acute renal failure. His chest x-ray does not have much fluid overload. He does have what appears to be pneumonia. This is little bit increased in comparison to his old chest x-ray several days ago. Patient is a DNR. I did call and speak with patient's . I did explain to her patient is very ill that he is on BiPAP that she still has some difficulty breathing with it. I also explained to her the elevation of the heart enzymes that this could represent possible heart attack. Also explained to her the new acute renal failure. Informed her that if the wants interventional treatment such as heart catheterization to further rule out the possibility of coronary disease as the cause of elevated troponin that we would have to transfer the patient. I explained to her that this is a form of intervention. At this time the does not want this performed. She says she preferred that we admit him here she would discuss further with family tomorrow and then come see the patient tomorrow to determine further treatment options she wants. At this time she does not want the patient to have a heart catheter to be transferred until she speaks for the family. Also informed the patient's that this is respiratory status worsens that the only way we would be able to save him would be to intubate. At this time she wants us to hold not to intubate him. She wants to keep him as a DNR and DO NOT INTUBATE at this time. I did speak with the hospitalist who agrees to admit the patient. Dictation of this chart was performed using voice recognition software; therefore, there may be some unintended grammatical errors. Discharge - Discharge Clinical Impression: Elevated troponin Respiratory failure Qualifiers: Chronicity: acute Respiratory failure complication: hypoxia Qualified Code(s): J96.01 - Acute respiratory failure with hypoxia Renal failure Qualifiers: Renal failure chronicity: acute Pneumonia Qualifiers: Pneumonia type: due to unspecified organism Laterality: right Lung location: lower lobe of lung Qualified Code(s): J18.1 - Lobar pneumonia, unspecified organism Admitting Provider: Hospitalist
[2016-11-04 01:59] LABS: VENOUS BLOOD BASE EXCESS -3.2 mmol/L; VENOUS BLOOD PH 7.25 (7.30-7.42)
[2016-11-04 02:15] LABS: ALANINE AMINOTRANSFERASE 31 U/L (21-72); ALBUMIN 3.7 g/dL (3.5-5.0); ALKALINE PHOSPHATASE 101 U/L (38-126); ASPARTATE AMINO TRANSFERASE 27 U/L (17-59); BILIRUBIN,DIRECT 0.6 mg/dL (0.0-0.4); BILIRUBIN,TOTAL 0.8 mg/dL (0.2-1.3); BLOOD UREA NITROGEN 79 mg/dL (7-20); CALCIUM 8.6 mg/dL (8.4-10.2); CARBON DIOXIDE 22 mmol/L (22-30); CHLORIDE 100 mmol/L (98-107); CREATININE RESULT 7.02 mg/dL (0.52-1.25); GLUCOSE 177 mg/dL (75-110); POTASSIUM 4.9 mmol/L (3.6-5.0)
[2016-11-04 02:26] LABS: ANION GAP 23 (5-19)
[2016-11-04 02:35] LABS: HEMATOCRIT 42.2 % (37.9-51.0); HEMOGLOBIN 12.3 g/dL (13.5-17.0); HGB HCT DIFFERENCE -5.3; MEAN CORPUSCULAR HGB CONC 29.1 g/dL (32.0-36.0); MEAN CORPUSCULAR VOLUME 76 fl (80-97); RED BLOOD COUNT 5.57 10^6/uL (4.35-5.55); RED CELL DISTRIBUTION WIDTH 26.3 % (11.5-14.0); WHITE BLOOD COUNT 18.7 10^3/uL (4.0-10.5)
[2016-11-04 02:37] LABS: BAND NEUTROPHILS % (MANUAL) 1 % (3-5); BASOPHILS % (MANUAL) 0 % (0-2); EOSINOPHILS % (MANUAL) 0 % (0-6); LYMPHOCYTES % (MANUAL) 7 % (13-45); TOTAL CELLS COUNTED 100
--- NOTE | 2016-11-04 02:38 | RADIOLOGY REPORT (SQ) ---
EXAM DESCRIPTION: CHEST SINGLE VIEW COMPLETED DATE/TIME: 11/04/2016 2:07 am REASON FOR STUDY: dyspnea COMPARISON: 10/22/2016. EXAM PARAMETERS: NUMBER OF VIEWS: One view. TECHNIQUE: Single frontal radiographic view of the chest acquired. RADIATION DOSE: NA LIMITATIONS: None. FINDINGS: LUNGS AND PLEURA: Moderate airspace patchiness and interstitial markings of the right lowe r hemithorax. Moderate right lung volume. MEDIASTINUM AND HILAR STRUCTURES: No masses. Contour normal. HEART AND VASCULAR STRUCTURES: Heart normal in size. Atherosclerosis. BONES: No acute findings. HARDWARE: None in the chest. OTHER: No other significant finding. IMPRESSION: Moderate right lower lobar pneumonia. Recommend 7-12 week surveillance radiographs. TECHNICAL DOCUMENTATION: JOB ID: [id number]
[2016-11-04 02:40] LABS: ANISOCYTOSIS 3+; MICROCYTOSIS 1+; OVALOCYTES SLIGHT
[2016-11-04 02:41] LABS: HYPOCHROMASIA 1+; TEAR DROP CELLS SLIGHT
[2016-11-04] MEDS ORDERED: PIPERACILLIN/TAZOBACTAM 3.375 GM VIAL IV ONE (02:45)
[2016-11-04 02:46] LABS: CREATINE KINASE MB 3.49 ng/mL (<4.55)
[2016-11-04] MEDS ORDERED: NORMAL SALINE 500 ML IV ONE (02:46)
[2016-11-04] MEDS ORDERED: VANCOMYCIN HCL INJ 1000 MG VIAL IV ONE (02:46)
[2016-11-04 02:48] LABS: TROPONIN I 0.139 ng/mL
[2016-11-04 03:16] LABS: PARTIAL THROMBOPLASTIN TIME 57.1 SEC (23.5-35.8)
[2016-11-04] MEDS ORDERED: ACETAMINOPHEN 325 MG TABLET PO PRN (03:49)
[2016-11-04] MEDS ORDERED: HYDRALAZINE HCL 50 MG TABLET PO PRN (03:49)
[2016-11-04] MEDS ORDERED: VANCOMYCIN HCL 0 MG in DEXTROSE 5%-WATER 250 ML IV NR (04:00)
[2016-11-04] MEDS ORDERED: ASPIRIN 81 MG TABLET, CHEWABLE PO ONE (04:30)
[2016-11-04] MEDS ORDERED: NORMAL SALINE 1000 ML 1,000 ML IV SCH (04:45)
[2016-11-04] MEDS ORDERED: PIPERACILLIN SODIUM/TAZOBACTAM 2.25 GM in NORMAL SALINE 50 ML IV SCH (06:00)
[2016-11-04] MEDS ORDERED: HEPARIN SOD (PORCINE) 5,000 UNIT/ML 1 ML SYRINGE SUBCUT SCH (06:00)
--- NOTE | 2016-11-04 06:44 | PDOC H&P ---
History of Present Illness Admission Date/PCP: 11/04/16 03:52 Patient complains of: Altered mental status and short of breath History of Present Illness: LEOPOLDO SANCHEZ is a 76 year old male with a past medical history of early onset Alzheimer's dementia, atrial fibrillation, diabetes, stage IV chronic kidney disease, diabetes, COPD, anemia and debility with bedbound state who is a senior care resident found to be short of breath with altered mental status and difficult to arouse. He is brought to the emergency room for evaluation found to have sepsis, acute on chronic respiratory failure with a right lower lobe pneumonia, congestive heart failure exacerbation, acute on chronic renal failure. Patient is verified by to be DNR requesting no aggressive measures including dialysis, cardiac catheterization or central line placement. Patient is unable to provide history and referred for hospitalization. Past Medical History Cardiac Medical History: Reports: Atrial Fibrillation, Congestive Heart Failure , Coronary Artery Disease, Hypertension, Peripheral Vascular Disease Pulmonary Medical History: Reports: Chronic Obstructive Pulmonary Disease (COPD) Endocrine Medical History: Reports: Diabetes Mellitus Type 2 GI Medical History: Reports: Gastroesophageal Reflux Disease Musculoskeltal Medical History: Reports: Arthritis Psychiatric Medical History: Reports: Dementia Hematology: Reports: Anemia - Noncompliance with diet and medication Past Surgical History Past Surgical History: Reports: Appendectomy, Cardiac Catheterization Social History Information Source: Emergency Med Personnel, [facility] Records Lives with: Prison Smoking Status: Former Smoker Frequency of Alcohol Use: Rare Hx Recreational Drug Use: No Drugs: None Hx Prescription Drug Abuse: No - Advance Directive Resuscitation Status: Do Not Resuscitate Family History Family History: Other - Unobtainable Parental Family History Reviewed: Yes - Unobtainable Children Family History Reviewed: Yes - Unobtainable Sibling(s) Family History Reviewed.: Yes Medication/Allergy Home Medications: Carvedilol [Coreg] 2 tab PO Q12 04/05/15 Furosemide [Lasix 40 mg Tablet] 80 mg PO QAM #60 tablet 04/12/15 Insulin Glargine,Hum.rec.anlog [Lantus Insulin 100 Unit/mL] 10 unit SUBCUT Q12 # 10 insuln.pen 04/12/15 Linezolid [Zyvox 600 mg Tablet] 600 mg PO Q12 #20 tablet 04/12/15 Amiodarone HCl [Cordarone 200 mg Tablet] 100 mg PO Q12 10/13/16 Budesonide/Formoterol Fumarate [Symbicort HFA 160-4.5 mcg Inhaler 6 gm] 2 puff IH Q12 10/13/16 Carvedilol [Coreg 12.5 mg Tablet] 12.5 mg PO Q12 10/13/16 Cholecalciferol (Vitamin D3) [Vitamin D3 2000 unit Tablet] 2,000 unit PO DAILY 10/13/16 Furosemide [Lasix] 40 mg PO QPM 10/13/16 Furosemide [Lasix] 80 mg PO QAM 10/13/16 Glimepiride [Amaryl 1 mg Tablet] 2 mg PO QAM 10/13/16 Multivitamin W/Iron, Minerals [Compete] 1 tab PO DAILY 10/13/16 Acetaminophen [Tylenol 325 mg Tablet] 650 mg PO Q4HP PRN tablet 10/31/16 Docusate Sodium [Colace 100 mg Capsule] 100 mg PO BID #0 10/31/16 Docusate Sodium [Colace 100 mg Capsule] 100 mg PO DAILY capsule 10/31/16 Glucagon,Human Recombinant [Glucagen Inj 1 mg Vial] 1 mg IM PRN PRN vial Haloperidol [Haldol 2 mg Tablet] 2 mg PO QHS #30 tablet 10/31/16 Hydralazine HCl [Apresoline 50 mg Tablet] 50 mg PO Q8 tablet 10/31/16 Nicotine [Nicoderm 21 mg/24 Hr Transderm Patch] 1 each TD DAILY patch.td24 Polyethylene Glycol 3350 [Miralax Powder 17 gm/Packet] 17 gm PO DAILYP PRN powd.pack 10/31/16 Allergies/Adverse Reactions: PEPE Inhibitors [Pepe Inhibitors] Allergy (Severe, Verified 04/05/15 03:38) angioedema finasteride [Finasteride] Allergy (Severe, Verified 04/05/15 03:38) angioedema lisinopril [Lisinopril] Allergy (Severe, Verified 04/05/15 03:37) angioedema Review of Systems ROS unobtainable: Due to mental status - Encephalopathic Physical Exam Vital Signs: Temp Pulse Resp BP Pulse Ox 33 H 95/60 L 94 11/04/16 05:02 11/04/16 04:11 11/04/16 05:02 General appearance: PRESENT: disheveled, severe distress, thin, other - Temporal wasting and cachexia Head exam: PRESENT: atraumatic, normocephalic Eye exam: PRESENT: conjunctiva pink, EOMI, PERRLA. ABSENT: scleral icterus Ear exam: PRESENT: normal external ear exam Mouth exam: PRESENT: moist, tongue midline Neck exam: ABSENT: carotid bruit, JVD, lymphadenopathy, thyromegaly Respiratory exam: PRESENT: accessory muscle use, crackles, decreased breath sounds, prolonged expiratory phas, rales, retraction, rhonchi, symmetrical, tachypnea Cardiovascular exam: PRESENT: gallop, +S1, +S2, tachycardia Pulses: PRESENT: normal dorsalis pedis pul Vascular exam: PRESENT: normal capillary refill GI/Abdominal exam: PRESENT: normal bowel sounds, soft. ABSENT: distended, guarding, mass, organolmegaly, rebound, tenderness Rectal exam: PRESENT: deferred Extremities exam: PRESENT: full ROM, other - First 3 toes of the right foot with eschar, no exudate or erythema. ABSENT: calf tenderness, clubbing, pedal edema Musculoskeletal exam: PRESENT: other - Global atrophy Neurological exam: PRESENT: altered Skin exam: PRESENT: dry, intact, warm. ABSENT: cyanosis, rash Results Impressions: Chest X-Ray 11/04/16 01:19 IMPRESSION: Moderate right lower lobar pneumonia. Recommend 7-12 week surveillance radiographs. Assessment & Plan - Diagnosis (1) Pneumonia Qualifiers: Pneumonia type: due to unspecified organism Laterality: right Lung location: lower lobe of lung Qualified Code(s): J18.1 - Lobar pneumonia, unspecified organism Is this a current diagnosis for this admission?: YesPlan: Right lower lobe pneumonia concerning for hospitalization he received vancomycin and Zosyn, scheduled albuterol and Atrovent follow-up CBC and blood culture (2) Renal failure Qualifiers: Renal failure chronicity: acute Is this a current diagnosis for this admission?: YesPlan: Acute on chronic renal failure some element of prerenal azotemia. IV fluid challenge avoiding nephrotoxic meds and doses reevaluation of chemistry (3) Non-STEMI (non-ST elevated myocardial infarction) Is this a current diagnosis for this admission?: YesPlan: EKG suggests posterior wall anticipate cardiac enzymes to climb, aspirin and beta-corinna initiated optimize underlying respiratory failure. Patient is not a candidate for aggressive measures given underlying comorbidity (4) Early onset Alzheimer's dementia Is this a current diagnosis for this admission?: YesPlan: Supportive care (5) Paroxysmal atrial fibrillation Is this a current diagnosis for this admission?: YesPlan: Rate control with Lopressor and amiodarone (6) Do not resuscitate Is this a current diagnosis for this admission?: YesPlan: Patient's wishes verified from (7) Encephalopathy Is this a current diagnosis for this admission?: YesPlan: Secondary to underlying acute illness continue supportive measures - Time Time Spent: 50 to 70 Minutes - Inpatient Certification Medical Necessity: Need Close Monitoring Due to Risk of Patient Decompensation
--- NOTE | 2016-11-04 07:52 | EKG REPORT ---
SEVERITY:- ABNORMAL ECG - sinus RHYTHM INFERIOR INFARCT, OLD CONSIDER POSTERIOR WALL INVOLVEMENT REPOL ABNRM SUGGESTS ISCHEMIA, DIFFUSE LEADS : Confirmed by: Manan Julien 04-Nov-2016 07:51:36
--- NOTE | 2016-11-04 07:53 | EKG REPORT ---
SEVERITY:- ABNORMAL ECG - SINUS RHYTHM NONSPECIFIC INTRAVENTRICULAR CONDUCTION DELAY PROBABLE INFERIOR INFARCT, OLD CONSIDER ANTERIOR INFARCT CONSIDER POSTERIOR WALL INVOLVEMENT : Confirmed by: Manan Julien 04-Nov-2016 07:51:46
[2016-11-04] MEDS ORDERED: IPRATROPIUM/ALBUTEROL 0.5-2.5 MG/3 ML AMPUL NEB SCH (08:00)
[2016-11-04 08:02] LABS: BLOOD UREA NITROGEN 82 mg/dL (7-20); GLUCOSE 270 mg/dL (75-110)
[2016-11-04 08:08] LABS: CREATININE RESULT 7.03 mg/dL (0.52-1.25)
[2016-11-04 08:19] LABS: CARBON DIOXIDE 18 mmol/L (22-30); CHLORIDE 101 mmol/L (98-107); POTASSIUM 5.1 mmol/L (3.6-5.0); SODIUM 141.8 mmol/L (137-145)
[2016-11-04 08:27] LABS: ANION GAP 23 (5-19)
[2016-11-04] MEDS ORDERED: AMIODARONE HCL 200 MG TABLET PO SCH (10:00)
[2016-11-04] MEDS ORDERED: CARVEDILOL 12.5 MG TABLET PO SCH (10:00)
[2016-11-04] MEDS ORDERED: ASPIRIN 81 MG TABLET, CHEWABLE PO SCH (10:00)
[2016-11-04] MEDS ORDERED: DOCUSATE SODIUM 100 MG CAPSULE PO SCH (10:00)
[2016-11-04] MEDS ORDERED: LORAZEPAM INJ 2 MG/1 ML VIAL IV PRN (11:10)
[2016-11-04] MEDS ORDERED: FENTANYL 12 MCG/HR PATCH.TD72 TD ONE (11:12)
--- NOTE | 2016-11-04 11:23 | PDOC PROGRESS REPORT ---
Subjective Progress Note for:: 11/04/16 Subjective:: Called to patient room by family. They would like to make him comfort measures at this time. Patient has a hx of bladder cancer, dementia, COPD, CAD, Systolic heart failure , CKD IV, and presented with HCAP, Severe Sepsis, and acute on chronic renal failure with acute CHF. I am in agreement at this time. No history is obtainable to his encephalopathy. Patient is on Bipap. Physical Exam Vital Signs: Temp Pulse Resp BP Pulse Ox 98.9 F 76 31 H 112/52 L 98 11/04/16 07:38 11/04/16 09:00 11/04/16 09:00 11/04/16 07:38 11/04/16 09:00 Intake & Output 11/03/16 11/04/16 11/05/16 06:59 06:59 06:59 Weight 102.8 kg Exam: General: obtunded, acute and chronically ill-appearing HEENT: Atraumatic, normocephalic, PEERLA, no scleral icterus Neck: Supple,+ JVD, no lymphadenopathy, no thyromegaly, trachea midline Chest: Rales bilaterally throughout Cardiac: Regular rate and rhythm, normal S1 and S2 Abdomen: Soft, nontender to palpation,distended, without rebound, rigidity, or guarding Extremities: No cyanosis; + clubbing, +3 edema Skin: right arm skin tear Results Laboratory Results: 11/04/16 07:17 11/04/16 11/04/16 05:58 07:17 Sodium Cancelled 141.8 Potassium Cancelled 5.1 H Chloride Cancelled 101 Carbon Dioxide Cancelled 18 L Anion Gap Cancelled 23 H BUN Cancelled 82 H Creatinine Cancelled 7.03 H Est GFR ( Amer) Cancelled 9 L Est GFR (Non-Af Amer) Cancelled 8 L Glucose Cancelled 270 H Calcium Cancelled 8.0 L Impressions: Chest X-Ray 11/04/16 01:19 IMPRESSION: Moderate right lower lobar pneumonia. Recommend 7-12 week surveillance radiographs. Assessment & Plan - Diagnosis (1) Acute on chronic renal failure Qualifiers: Acute renal failure type: unspecified Chronic kidney disease stage: stage 4 (severe) Qualified Code(s): N17.9 - Acute kidney failure, unspecified; N18.9 - Chronic kidney disease, unspecified Is this a current diagnosis for this admission?: Yes (2) Sepsis Qualifiers: Sepsis type: sepsis due to unspecified organism Qualified Code(s): A41.9 - Sepsis, unspecified organism Is this a current diagnosis for this admission?: Yes (3) Elevated troponin Is this a current diagnosis for this admission?: Yes (4) Pneumonia Qualifiers: Pneumonia type: due to unspecified organism Laterality: right Lung location: lower lobe of lung Qualified Code(s): J18.1 - Lobar pneumonia, unspecified organism Is this a current diagnosis for this admission?: Yes (5) Acute and chronic respiratory failure ([id number]) Qualifiers: Respiratory failure complication: hypoxia and hypercapnia Qualified Code(s): J96.21 - Acute and chronic respiratory failure with hypoxia Is this a current diagnosis for this admission?: Yes (6) Acute hypernatremia Is this a current diagnosis for this admission?: Yes (7) Acute on chronic systolic (congestive) heart failure Is this a current diagnosis for this admission?: Yes (8) CAD (coronary artery disease) Qualifiers: Coronary Disease-Associated Artery/Lesion type: unspecified vessel or lesion type Associated angina: without angina Is this a current diagnosis for this admission?: Yes (9) Diabetes mellitus Qualifiers: Diabetes mellitus type: type 2 Diabetes mellitus complication status: with circulatory complication Diabetes mellitus complication detail: with other circulatory complications Diabetes mellitus shelter insulin use: unspecified shelter insulin use status Qualified Code(s): E11.59 - Type 2 diabetes mellitus with other circulatory complications Is this a current diagnosis for this admission?: Yes (10) Early onset Alzheimer's dementia Is this a current diagnosis for this admission?: Yes (11) Encephalopathy Is this a current diagnosis for this admission?: Yes (13) Paroxysmal atrial fibrillation Is this a current diagnosis for this admission?: Yes (14) Do not resuscitate Is this a current diagnosis for this admission?: Yes - Time Time Spent with patient: 25-34 minutes Medications reviewed and adjusted accordingly: Yes Anticipated discharge: Hospice - Inpatient Certification Based on my medical assessment, after consideration of the patient's comorbidities, presenting symptoms, or acuity I expect that the services needed warrant INPATIENT care.: Yes I certify that my determination is in accordance with my understanding of Medicare's requirements for reasonable and necessary INPATIENT services [42 CFR 412.3e].: Yes Medical Necessity: Need for Pain Control Post Hospital Care: D/C Family Physician Documentation - Plan Summary Plan Summary: Called to patient room by family. They would like to make him comfort measures at this time. I am in agreement at this time. Place patient on morphine, ativan, fentanyl, scopolamine, and atropine ggts. Palliative care consulted for assistance.
[2016-11-04] MEDS: ATROPINE SULFATE 1% OPH SOLN 5 ML BOTTLE SL SCH ×3 (11:30→23:43)
[2016-11-04] MEDS ORDERED: SCOPOLAMINE HYDROBROMIDE 1.5 MG PATCH.TD72 TD ONE (12:00)
[2016-11-04 13:09] VITALS: BP 121/68
[2016-11-04] MEDS: MORPHINE SULFATE 10 MG/ML INJ IV PRN ×2 (15:37→23:43)
[2016-11-05] MEDS: MORPHINE SULFATE 10 MG/ML INJ IV PRN ×2 (06:59→09:27)
[2016-11-05] MEDS: ATROPINE SULFATE 1% OPH SOLN 5 ML BOTTLE SL SCH ×3 (06:59→16:55)
--- NOTE | 2016-11-05 11:22 | PDOC PROGRESS REPORT ---
Subjective Progress Note for:: 11/05/16 Subjective:: Patient currently does not verbalize. Patient is sedated. He is now on comfort measures. Family at bedside who is agreeable with the plan. Reportedly patient was seen by palliative care. No reported temperature spikes , nausea or vomiting, chills or fever, or respiratory distress. Physical Exam Vital Signs: Temp Pulse Resp BP Pulse Ox 98.4 F 76 26 H 121/68 90 L 11/04/16 11:22 11/04/16 14:00 11/04/16 11:22 11/04/16 11:22 11/04/16 11:22 Intake & Output 11/04/16 11/05/16 11/06/16 06:59 06:59 06:59 Intake Total 10 Output Total 180 Balance -170 Weight 102.8 kg General appearance: PRESENT: no acute distress, other - Sedated and nonverbal at this time Head exam: PRESENT: normocephalic Eye exam: PRESENT: conjunctiva pale Mouth exam: PRESENT: moist, neck supple Neck exam: ABSENT: JVD Respiratory exam: PRESENT: rhonchi - Scattered bilateral. ABSENT: wheezes Cardiovascular exam: PRESENT: RRR. ABSENT: gallop GI/Abdominal exam: PRESENT: hypoactive bowel sounds, soft. ABSENT: distended, tenderness Extremities exam: ABSENT: pedal edema Psychiatric exam: ABSENT: agitated Focused psych exam: ABSENT: restlessness Skin exam: PRESENT: dry, warm. ABSENT: cyanosis Results Laboratory Results: 11/04/16 07:17 Impressions: Chest X-Ray 11/04/16 01:19 IMPRESSION: Moderate right lower lobar pneumonia. Recommend 7-12 week surveillance radiographs. Assessment & Plan - Diagnosis (1) Acute on chronic renal failure Qualifiers: Acute renal failure type: unspecified Chronic kidney disease stage: stage 4 (severe) Qualified Code(s): N17.9 - Acute kidney failure, unspecified; N18.9 - Chronic kidney disease, unspecified Is this a current diagnosis for this admission?: Yes (2) Elevated troponin Is this a current diagnosis for this admission?: Yes (3) Pneumonia Qualifiers: Pneumonia type: due to unspecified organism Laterality: right Lung location: lower lobe of lung Qualified Code(s): J18.1 - Lobar pneumonia, unspecified organism Is this a current diagnosis for this admission?: Yes (4) Acute and chronic respiratory failure ([id number]) Qualifiers: Respiratory failure complication: hypoxia and hypercapnia Qualified Code(s): J96.21 - Acute and chronic respiratory failure with hypoxia Is this a current diagnosis for this admission?: Yes (5) Acute on chronic systolic (congestive) heart failure Is this a current diagnosis for this admission?: Yes (6) Atrial fibrillation Qualifiers: Atrial fibrillation type: chronic Qualified Code(s): I48.2 - Chronic atrial fibrillation Is this a current diagnosis for this admission?: Yes (7) COPD (chronic obstructive pulmonary disease) Qualifiers: COPD type: unspecified COPD Qualified Code(s): J44.9 - Chronic obstructive pulmonary disease, unspecified Is this a current diagnosis for this admission?: Yes (8) Diabetes mellitus Qualifiers: Diabetes mellitus type: type 2 Diabetes mellitus complication status: with circulatory complication Diabetes mellitus complication detail: with other circulatory complications Diabetes mellitus intermediate accountant insulin use: unspecified intermediate accountant insulin use status Qualified Code(s): E11.59 - Type 2 diabetes mellitus with other circulatory complications Is this a current diagnosis for this admission?: Yes (9) Diabetic foot ulcer Qualifiers: Diabetes mellitus type: type 2 Laterality: unspecified laterality Is this a current diagnosis for this admission?: Yes (10) Early onset Alzheimer's dementia Qualifiers: Dementia behavioral disturbance: without behavioral disturbance Qualified Code(s): G30.0 - Alzheimer's disease with early onset; F02.80 - Dementia in other diseases classified elsewhere without behavioral disturbance Is this a current diagnosis for this admission?: Yes (11) Hypertension Qualifiers: Hypertension type: essential hypertension Qualified Code(s): I10 - Essential (primary) hypertension Is this a current diagnosis for this admission?: Yes - Time Time Spent with patient: 25-34 minutes - Plan Summary Plan Summary: Continue comfort measures. Consult hospice for inpatient care. Continue supportive care. Patient is on as needed intravenous narcotics, benzodiazepine , and also on scopolamine patch.
--- NOTE | 2016-11-06 07:29 | Death Summary ---
Summary Date : 11/05/16 Autopsy: No Resuscitation Status: Comfort Measures Only - Final Diagnosis (1) Acute on chronic renal failure Is this a current diagnosis for this admission?: Yes (2) Elevated troponin Is this a current diagnosis for this admission?: Yes (3) Pneumonia Is this a current diagnosis for this admission?: Yes (4) Acute and chronic respiratory failure ([id number]) Is this a current diagnosis for this admission?: Yes (5) Acute on chronic systolic (congestive) heart failure Is this a current diagnosis for this admission?: Yes (6) Atrial fibrillation Is this a current diagnosis for this admission?: Yes (7) COPD (chronic obstructive pulmonary disease) Is this a current diagnosis for this admission?: Yes (8) Diabetes mellitus Is this a current diagnosis for this admission?: Yes (9) Diabetic foot ulcer Is this a current diagnosis for this admission?: Yes (10) Early onset Alzheimer's dementia Is this a current diagnosis for this admission?: Yes (11) Hypertension Is this a current diagnosis for this admission?: Yes Hospital Course:: The patient was admitted to [facility]. Patient was begun on antibiotics to cover for possible pneumonia. Patient was likewise started on antiplatelet therapy as well as diuretics for heart failure. It was discussed earlier to the patients family that there was no nephrology service nor dialysis service at the time of admission and therefore patient needs to be transferred, however family reports that the patient had a living will and does not want those extraordinary measures to sustain life and refused. He is a DNR and this was instituted. Attending physician eventually discussed with the family regarding the elevated troponins, probably acute coronary syndrome as well. Given heart failure, pneumonia, kidney failure patient's prognosis was very poor and therefore the family made him comfort measures. He was placed on intravenous narcotics for pain and comfort. Patient eventually after 24-48 hours of being admitted.
== END 2016-11-05 18:52 | disposition left against medical advice (07) | DRG 871 ==
LOC: ER 01:10 → EH 03:52 → 3S 06:25
PROVIDERS: ADMIT Internal Medicine; ATTEND Internal Medicine
PROC: 5A09357 Assistance with Respiratory Ventilation, Less than 24 Consecutive Hours, Continuous Positive Airway Pressure (ICD-10-PCS; principal; 2016-11-04)
DX: A41.9 Sepsis, unspecified organism (principal); J18.9 Pneumonia, unspecified organism; J96.21 Acute and chronic respiratory failure with hypoxia; I50.23 Acute on chronic systolic (congestive) heart failure; G93.41 Metabolic encephalopathy; I21.3 ST elevation (STEMI) myocardial infarction of unspecified site; N17.9 Acute kidney failure, unspecified; I13.0 Hypertensive heart and chronic kidney disease with heart failure and stage 1 through stage 4 chronic kidney disease, or unspecified chronic kidney disease; N18.4 Chronic kidney disease, stage 4 (severe); E87.0 Hyperosmolality and hypernatremia; Z51.5 Encounter for palliative care; E11.51 Type 2 diabetes mellitus with diabetic peripheral angiopathy without gangrene; J44.9 Chronic obstructive pulmonary disease, unspecified; E11.22 Type 2 diabetes mellitus with diabetic chronic kidney disease; Z66 Do not resuscitate; K21.9 Gastro-esophageal reflux disease without esophagitis; R65.20 Severe sepsis without septic shock; G30.0 Alzheimer's disease with early onset; F02.80 Dementia in other diseases classified elsewhere, unspecified severity, without behavioral disturbance, psychotic disturbance, mood disturbance, and anxiety; M19.90 Unspecified osteoarthritis, unspecified site; D64.9 Anemia, unspecified; E11.621 Type 2 diabetes mellitus with foot ulcer; I73.9 Peripheral vascular disease, unspecified; I48.0 Paroxysmal atrial fibrillation; Z79.01 Long term (current) use of anticoagulants; Z90.49 Acquired absence of other specified parts of digestive tract; Z91.19 Patient's noncompliance with other medical treatment and regimen; Z88.8 Allergy status to other drugs, medicaments and biological substances; Z86.73 Personal history of transient ischemic attack (TIA), and cerebral infarction without residual deficits; Z79.4 Long term (current) use of insulin
CPT/HCPCS: 36415; 51702; 71010; 80048; 80053; 82550; 82553; 82803; 83880; 84484; 85025; 85610; 85730; 87040; 93005; 93010; 94660; 99285; J1644; J2060; J2270; J2543; J3370; J3490; J7030; J7620